=== PATIENT | male | born 1955 | race Caucasian/White ===

== ENCOUNTER → 2016-11-12 | Outpatient (CLI) | payer OTHER, MEDICARE ==
[~2016-11-12] MED LIST: CARI350T20 PO; HYDR7.5T66 PO; NEUR600T PO
--- NOTE | 2016-11-12 11:47 | REP ---
CERVICAL SPINE, EIGHT VIEWS: HISTORY: Spondylosis. COMPARISON: 07/18/2015. There is no acute fracture or subluxation. The C5-6 and C6-7 intervertebral discs are decreased in height consistent with disc degeneration. Osteophytes are present on C3 through C7. There is narrowing of the left C5 and C6 neural foramina secondary to uncinate process hypertrophy. IMPRESSION: Degenerative change as described above. Signed by Ulysses Del Toro MD 11/12/2016 11:53 A
--- NOTE | 2016-11-12 11:49 | REP ---
LUMBAR SPINE, SEVEN VIEWS: HISTORY: Spondylosis. There is no acute fracture. The L2-3 through L5-S1 intervertebral discs are decreased in height consistent with disc degeneration. Osteophytes are present on L3-5. There is narrowing of the L4-5 and L5-S1 facet joints with associated sclerosis. There are 3 mm of grade 1 spondylolisthesis of L4 on 5 with flexion . This is not seen in neural or extension radiographs. IMPRESSION: Degenerative change as described above. Signed by Ulysses Del Toro MD 11/12/2016 11:54 A
== END ==
LOC: M RAD 10:06
PROVIDERS: ATTEND Neurological Surgery
DX: M47.892 Other spondylosis, cervical region (principal); M50.90 Cervical disc disorder, unspecified, unspecified cervical region; M51.36 Other intervertebral disc degeneration, lumbar region; M51.37 Other intervertebral disc degeneration, lumbosacral region

== ENCOUNTER → 2016-12-03 | Outpatient (CLI) | payer OTHER, MEDICARE ==
--- NOTE | 2016-12-03 13:34 | REP ---
MRI CERVICAL SPINE WITHOUT CONTRAST: 12/03/2016. Comparison: 05/25/2014. Clinical history: Spondylosis with myelopathy cervical region. Technique: Sagittal T1, T2 and STIR images with axial T1 and T2 sequences provided through the cervical spine. Findings: Normal loss of some of the cervical lordosis is again seen unchanged. There is cervical spondylosis greatest at C5-6 and C6-7 with disc space narrowing and loss of disc water signal, less disc space narrowing at the C4-5 compared to the other levels with loss of disc water signal, mild at all of those levels. No compression deformity of destructive lesion in the cervical and upper thoracic spine. The cervical cord shows no intrinsic signal abnormality, syrinx, atrophy or mass. Craniocervical junction shows ample subarachnoid space and no cerebellar tonsillar ectopia. The C2-3 disc level shows no bulge herniation and no spinal or foraminal stenosis. At C3-C4, there is no significant disc bulge or herniation and no spinal stenosis. The foramina appear to have adequate perineural fat. At C4-5, there no significant disc bulge herniation and no spinal or foraminal stenosis. At C5-6, there is posterior osteophytic ridging and associated central and left paracentral disc protrusion. This abuts and flattens the ventral cord surface causing some central canal stenosis. The foramina show encroachment, left greater than right due to uncinate and facet spurs. At C6-7, there is also posterior osteophytic ridging and an associated disc bulge flattening ventral thecal sac but not causing as much spinal stenosis. The foramina show encroachment on the left and are adequate on the right. At C7-T1, no spinal stenosis despite a small central disc bulge. The foramina are ample. Upper thoracic levels show minimal disc bulges at T2-3 and T3-4 without cord compression. Impression: 1. Spondylosis greatest at C5-6 with central canal stenosis and cord compression to degree unchanged from the 2013 study. However, I do not see myelomalacia. There is foraminal encroachment on the left at this level and at C6-7 as well. Less central stenosis at C6-7 and minimal stenosis without significant disc bulge elsewhere. Signed by Son Gregg MD 12/03/2016 05:09 P
--- NOTE | 2016-12-03 14:15 | REP ---
MRI LUMBAR SPINE WITHOUT CONTRAST: 12/03/2016. Comparison: x-ray 11/12/2016, MR 05/25/2014, 02/27/2008. Clinical history: Back pain, spondylosis with radiculopathy lumbar region. Technique: Sagittal T1, T2 and STIR images with axial T1 and T2 sequences provided. Findings: The normal sagittal lordosis is maintained in the lumbar spine. Disc space narrowing at L5-S1 with loss of disc water signal. The L2-3 through L4-5 levels show slight loss of height and loss of water signal sparing the height and water signal at L1-2. There is disc space narrowing and loss of water signal at T11-12. No compression deformity or destructive lesion in the spine. Anterior osteophytes at T11-12 and L5-S1. Conus terminates in the mid body L1. T11-12, T12-L1 and L1-2 levels show no disc bulge or herniation and no spinal or foraminal stenosis. At L2-3 there is mild disc bulge flattening ventral thecal sac but not causing central canal stenosis. Foramina adequate. At L3-4 there is a broad-based disc bulge flattening ventral thecal sac and asymmetrically greater slightly towards the left but this does not abut or displace the L4 nerve roots in the central canal. Cross-sectional area adequate. Some mild ligamentum and facet hypertrophy. The foramina ample. At L4-5 there is a mild broad-based disc bulge without disc herniation or spinal stenosis. Left foramen shows adequate perineural fat without nerve root compression. The right foramen is marginal. At L5-S1 there is a broad-based disc bulge abutting the ventral thecal sac, but not causing spinal stenosis. Foramina are adequate. IMPRESSION: 1. Degenerative spondylosis from L2-3 through L5-S1 with small central canal changes with disc bulges but no extrusion or protrusion. Findings are stable. The disc narrowing is greatest at L5-S1 with loss of disc water signal at that level. Conus terminates midbody at L1. 2. No compression deformity or destructive lesions. Signed by Son Gregg MD 12/03/2016 05:09 P
== END ==
LOC: M RAD 09:38
PROVIDERS: ATTEND Neurological Surgery
DX: M47.26 Other spondylosis with radiculopathy, lumbar region (principal); M47.12 Other spondylosis with myelopathy, cervical region

== ENCOUNTER → 2016-12-20 | Outpatient (CLI) | payer OTHER ==
--- NOTE | 2017-01-01 01:51 | ECWPNPC ---
PATIENT NAME: CORINE PRABHAKAR : 1955 GENDER: MALE VISIT DATE: 12/20/2016 DISCHARGE DATE: 12/20/16 1310 VISIT LOCKED DATE TIME: PHYSICIAN: CIERA CHUA RESOURCE: CIERA CHUA REASON FOR APPOINTMENT 1. 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 SCREENING :NO FALLS IN THE PAST YEAR PAIN SCREENING: PATIENT HAS A COMPLAINT OF ACUTE OR CHRONIC PAIN :YES CURRENT MEDICATIONS TAKING SOMA 350 MG TABLET 1 TABLET NEEDED ORALLY TWICE DAILY TAKING VICOPROFEN 7.5-200 MG TABLET 1 TABLET NEEDED ORALLY EVERY 6 HRS TAKING IBUPROFEN 400 MG TABLET 1 TABLET ORALLY TWICE DAILY NEEDED TAKING VERAPAMIL HCL 40 MG TABLET 1 TABLET ORALLY DAILY MEDICATION LIST REVIEWED AND RECONCILED WITH THE PATIENT PAST MEDICAL HISTORY 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 SURGICAL HISTORY TONSILLECTOMY HEMORRHOIDS FAMILY HISTORY FATHER: ALIVE MOTHER: 1 SON(S) , 2 DAUGHTER(S) - HEALTHY. MOM HAD ALZHEIMER, 2 CHILDREN WITH THYROID ISSUES. SOCIAL HISTORY GENERAL: TOBACCO USE ARE YOU A: CURRENT SMOKER, SMOKES 1 PPD ADVANCED DIRECTIVES HEALTH CARE PROXY? NO ADVANCED DIRECTIVES HOSPITALIZATION/MAJOR DIAGNOSTIC PROCEDURE DENIES PAST HOSPITALIZATION REVIEW OF SYSTEMS CONSTITUTIONAL: RECENT ILLNESS DENIES . ANY CHANGE IN YOUR MEDICAL CONDITION? NO . CHILLS NO . FEVER NO, DENIES . WEIGHT LOSS DENIES . INFECTION: DO YOU HAVE NEW INFECTIONS? , NO . DO YOU HAVE HISTORY OF MRSA? NO . MUSCULOSKELETAL: ANY NEW PATTERNS OF PAIN OR NUMBNESS? NO . SYTEMIC LUPUS NO . JOINT PAIN DENIES . JOINT STIFFNESS DENIES . GASTROENTEROLOGY: BOWEL INCONTINENCE DENIES . ANY NEW CHANGE IN BOWEL CONTROL? NO . BARRETTS ESOPHAGUS NO . CIRRHOSIS NO . HEPATITIS NO . LIVER FAILURE NO . ACID REFLUX NO . BLOOD IN STOOL DENIES . UNEXPLAINED WEIGHT LOSS NO . GENITOURINARY: ANY NEW CHANGE IN BLADDER CONTROL? NO . IS THERE A CHANCE YOU COULD BE ? NO . HEMATOLOGY/LYMPH: DENIES . BLEEDING DISORDER DENIES . DO YOU TAKE ANY BLOOD THINNERS? (FOR EXAMPLE- COUMADIN, PLAVIX, AGGRENOX, PLATEL, PRADAXA, OR XARELTO) NO . WHEN WAS YOUR LAST DOSE? DATE: TIME: . LOW PLATELET COUNT NO . SICKLE CELL DISEASE NO . VON WILLIEBRANDS NO . FACTOR V LEIDEN NO . THALLASEMIA NO . ANEMIA NO . EASY BRUISING NO . NEUROLOGY: HAVE YOU FALLEN IN THE PAST 6 MONTHS? NO . ANY NEW EXTREMITY NUMBNESS OR WEAKNESS? NO . HEAD INJURY NO . DEMENTIA NO . CEREBRAL PALSY NO . MULTIPLE SCLEROSIS NO . DIZZINESS NO . HEADACHE NO, DENIES . SEIZURES DENIES . STROKES NO . VERTIGO NO . CARDIOLOGY: DO YOU HAVE A PACEMAKER OR DEFIBRILLATOR? NO . ANGINA NO . HEART ATTACK NO . HEART SURGERY NO . CONGESTIVE HEART FAILURE/FLUID OVERLOAD NO . CHEST PAIN NO, DENIES . HIGH BLOOD PRESSURE NO . IRREGULAR HEART BEAT NO . SHORTNESS OF BREATH DENIES . RESPIRATORY: HAVE YOU BEEN SICK IN THE PAST WEEK? NO . FEVER NO . FLU LIKE SYMPTOMS? NO . CPAP NO . BYPAP NO . ASTHMA NO . EMPHYSEMA NO . CHRONIC LUNG DISEASES NO . SHORTNESS OF BREATH ON EXERTION NO . COUGH NO, DENIES . SHORTNESS OF BREATH DENIES . SNORING NO . INTEGUMENTARY: DO YOU HAVE ANY RASHES OR OPEN SORES? NO . ALLERGIC/IMMUNO: ARE YOU ALLERGIC TO SHELLFISH OR IV DYE? NO . ANY NEW ALLERGIES? NO . PSYCHIATRIC: DO YOU HAVE THOUGHTS OF HURTING YOURSELF OR SOMEONE ELSE? NO . ARE YOU ABUSED, NEGLECTED, OR IN AN UNSAFE ENVIRONMENT? NO . ENDOCRINOLOGY: THYROID DISEASE DENIES . ARE YOU DIABETIC? NO . DIABETES DENIES . THYROID DISORDER NO . OTHER: DO YOU NEED ANY PRESCRIPTIONS? NO . IF YES, PLEASE LIST: ____ . ANY NEW PROBLEMS WITH YOUR MEDICATIONS? NO . WHEN DID YOU LAST EAT? ____ . WHEN DID YOU LAST DRINK? ____ . WHAT DID YOU LAST DRINK? ____ . NAME OF PERSON DRIVING YOU HOME? ____ . DO YOU HAVE ANY OTHER QUESTIONS OR CONCERNS NO . HEENT: CHANGE IN VISION DENIES . LOSS OF HEARING DENIES . TROUBLE SWALLOWING DENIES . PSYCHOLOGY: ANXIETY DENIES . DEPRESSION DENIES . UROLOGY: URINARY INCONTINENCE DENIES . BLOOD IN URINE DENIES . REVIEWED BY: PROVIDER: CIERA SEO . VITAL SIGNS WT 185.4 LBS, HT 68", BMI 28.19 INDEX, BP 149/97 MM HG, HR 73 /MIN, RR 16 /MIN, TEMP 98.9 F, OXYGEN SAT % 96%, NA INITIALS TL 1140. EXAMINATION GENERAL EXAMINATION: HEENT:HEAD:, NORMOCEPHALIC, EYES:, EYES NORMAL, NOSE:, NOSE CLEAR, THROAT: NORMAL. LUNGS:LUNG SOUNDS ARE CLEAR. HEART:HEART RATE REGULAR. ABDOMEN:SOFT AND NOT TENDER, NON-DISTENDED. MUSCULOSKELETAL:*. LUMBAR SACRAL SPINEMUSCLE STRENGTH TESTING 5/5 BLE.PALPATION: + FOR PAIN OVER L/S SPINE. + FOR PAIN OVER L/S PARASPINALS. THORACIC SPINENEGATIVE FOR PAIN WITH PALPATION OF THORACIC SPINE. NEGATIVE FOR PAIN WITH PALPATION OF THORACIC PARASPINAL. CERVICALNEGATIVE FOR PAIN WITH PALPATION OF CERVICAL SPINE. NEGATIVE FOR PAIN WITH PALPATION OF CERVICAL PARASPINALS. NEGATIVE FOR PAIN WITH PALPATION OF TRAPEZIUS BILAT. SKIN:NORMAL, NO RASH. NEUROLOGIC EXAM:ALERT AND ORIENTED X 3, DTRS 1-2+ IN ALL 4 EXTREMITIES, DENIES UPPER EXTREMETIES SENSORY LOSS, DENIES LOWER EXTREMETIES SENSORY LOSS. DIAGNOSTIC: . ASSESSMENTS ARTHROPATHY - M12.9 (PRIMARY) TREATMENT ARTHROPATHY CONTINUE SOMA TABLET, 350 MG, 1 TABLET NEEDED, ORALLY, TWICE DAILY CONTINUE VICOPROFEN TABLET, 7.5-200 MG, 1 TABLET NEEDED, ORALLY, EVERY 6 HRS OTHERS CLINICAL NOTES: ISTOP REGISTRY REVIEWED. PROCEDURE CODES FA211 ESTABILISHED PATIENT [facility] FACILITY CHARGE DISPOSITION & COMMUNICATION FOLLOW UP / DR. PHILLIPS AT NEXT AVAILABLE 30 MIN VISIT ELECTRONICALLY SIGNED BY RAYRAY PEREZ ON 12/31/2016 AT 05:49 PM EDT DISCLAIMER : THIS IS A VISIT SUMMARY EXTRACTED FROM THE [employer] CHART. IT IS NOT A COPY OF THE [employer] PROGRESS NOTE. MTDD
== END ==
LOC: M PAIN 11:20
PROVIDERS: ATTEND Nurse Practitioner Family
DX: M12.9 Arthropathy, unspecified (principal); M25.512 Pain in left shoulder; M54.2 Cervicalgia; M54.5 Low back pain; R51 Headache; G89.29 Other chronic pain; Z79.891 Long term (current) use of opiate analgesic; Z79.899 Other long term (current) drug therapy; F17.210 Nicotine dependence, cigarettes, uncomplicated

== ENCOUNTER → 2017-01-02 | Outpatient (CLI) | payer OTHER ==
--- NOTE | 2017-01-13 23:35 | ECWPNPC ---
PATIENT NAME: CORINE PRABHAKAR : 1955 GENDER: MALE VISIT DATE: 01/02/2017 DISCHARGE DATE: 01/02/17 1456 VISIT LOCKED DATE TIME: PHYSICIAN: QAMAR PHILLIPS RESOURCE: QAMAR PHILLIPS REASON FOR APPOINTMENT 1. NECK PAIN HISTORY OF PRESENT ILLNESS HISTORY OF PRESENT ILLNESS: PAIN THE PATIENT DESCRIBES THE PAIN... 61 YEAR OLD MALE PATIENT WITH HISTORY OF CHRONIC NECK PAIN. PATIENT DESCRIBES THE PAIN ACHING, SHARP, AND SHOOTING WITH A PAIN SCORE OF 6/10. 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 PATIENT IS CURRENTLY USING VICOPROFEN AND SOMA WHICH HE STATES KEEPS HIM MOBILE AND FUNCTIONAL. PATIENT IS DOING THING HE'S LEARNED FROM PHYSICAL THERAPY AT HOME WHICH HE SEES A HIGH BENEFIT IN PAIN RELIEF AND FUNCTIONALITY. PATIENT STATES THAT ANY TYPE OF ACTIVITY INCREASES THE PAIN IN HIS CERVICAL AREA AND MEDICATION AND REST AIDS IN PAIN RELIEF. PATIENT DENIES UNEXPLAINABLE WEIGHT LOSS, FEVER, CHILLS, NEW CHANGES ON HIS URINARY OR BOWEL CONTROL. FALL RISK SCREENING: SCREENING :NO FALLS IN THE PAST YEAR CURRENT MEDICATIONS TAKING IBUPROFEN 200 MG TABLET 1 TABLET ORALLY TWICE DAILY NEEDED TAKING VERAPAMIL HCL 40 MG TABLET 1 TABLET ORALLY DAILY TAKING SOMA 350 MG TABLET 1 TABLET NEEDED ORALLY TWICE DAILY TAKING VICOPROFEN 7.5-200 MG TABLET 1 TABLET NEEDED ORALLY EVERY 6 HRS MEDICATION LIST REVIEWED AND RECONCILED WITH THE PATIENT PAST MEDICAL HISTORY 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 SURGICAL HISTORY TONSILLECTOMY HEMORRHOIDS FAMILY HISTORY FATHER: ALIVE MOTHER: 1 SON(S) , 2 DAUGHTER(S) - HEALTHY. MOM HAD ALZHEIMER, 2 CHILDREN WITH THYROID ISSUES. SOCIAL HISTORY GENERAL: PAIN CLINIC PFS, CLERGY, PUBLIC HEALTH REFERRALS CLERGY REFERRAL NEEDED?NO WAS THE PROVIDER NOTIFIED OF ANY PERTINENT INFO?NO PFS REFERRAL NEEDED?NO PUBLIC HEALTH REFERRAL NEEDED?NO PATIENT: ____. HOSPITALIZATION/MAJOR DIAGNOSTIC PROCEDURE NO HOSPITALIZATION HISTORY. REVIEW OF SYSTEMS CONSTITUTIONAL: ANY CHANGE IN YOUR MEDICAL CONDITION? NO . CHILLS NO . FEVER NO . INFECTION: DO YOU HAVE NEW INFECTIONS? YES BOTH EYES . DO YOU HAVE HISTORY OF MRSA? NO . MUSCULOSKELETAL: ANY NEW PATTERNS OF PAIN OR NUMBNESS? NO . GASTROENTEROLOGY: ANY NEW CHANGE IN BOWEL CONTROL? NO . GENITOURINARY: ANY NEW CHANGE IN BLADDER CONTROL? NO . IS THERE A CHANCE YOU COULD BE ? NO . HEMATOLOGY/LYMPH: DO YOU TAKE ANY BLOOD THINNERS? (FOR EXAMPLE- COUMADIN, PLAVIX, AGGRENOX, PLATEL, PRADAXA, OR XARELTO) NO . WHEN WAS YOUR LAST DOSE? DATE: TIME: . NEUROLOGY: HAVE YOU FALLEN IN THE PAST 6 MONTHS? NO . ANY NEW EXTREMITY NUMBNESS OR WEAKNESS? NO . CARDIOLOGY: DO YOU HAVE A PACEMAKER OR DEFIBRILLATOR? NO . RESPIRATORY: HAVE YOU BEEN SICK IN THE PAST WEEK? NO . FEVER NO . FLU LIKE SYMPTOMS? NO . COUGH NON-PRODUCTIVE . INTEGUMENTARY: DO YOU HAVE ANY RASHES OR OPEN SORES? NO . ALLERGIC/IMMUNO: ARE YOU ALLERGIC TO SHELLFISH OR IV DYE? NO . ANY NEW ALLERGIES? NO . PSYCHIATRIC: DO YOU HAVE THOUGHTS OF HURTING YOURSELF OR SOMEONE ELSE? NO . ARE YOU ABUSED, NEGLECTED, OR IN AN UNSAFE ENVIRONMENT? NO . ENDOCRINOLOGY: ARE YOU DIABETIC? NO . OTHER: DO YOU NEED ANY PRESCRIPTIONS? NO . IF YES, PLEASE LIST: ____ . ANY NEW PROBLEMS WITH YOUR MEDICATIONS? NO . WHEN DID YOU LAST EAT? ____ . WHEN DID YOU LAST DRINK? ____ . WHAT DID YOU LAST DRINK? ____ . NAME OF PERSON DRIVING YOU HOME? ____ . DO YOU HAVE ANY OTHER QUESTIONS OR CONCERNS NO . REVIEWED BY: PROVIDER: QAMAR PHILLIPS MD . VITAL SIGNS WT 185.2 LBS, HT 68", BMI 28.16 INDEX, BP 144/83 MM HG, HR 58 /MIN, RR 16 /MIN, TEMP 98.7 F, OXYGEN SAT % 95, NA INITIALS AW 1332, REVIEWED BY: MLF. EXAMINATION : PATIENT IS ALERT O X 3 AND COOPERATIVE. TENDERNESS IN THE CERVICAL AREA AND PARASPINAL MUSCLE GROUP. PATIENT ABLE TO EXTEND NECK 10 DEGREES WITH DISCOMFORT AND LATERAL ROTATION TO THE RIGHT IN 15 DEGREES AND LEFT IS 45 DEGREES. 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 MRI DONE ON 12/03/16 SHOWS SPONDYLOSIS WITH CANAL STENOSIS WITH A DISC PROTRUSION AT C5-C6. ASSESSMENTS CERVICAL DISC DISORDER AT C5-C6 LEVEL WITH RADICULOPATHY - M50.122 (PRIMARY) SPONDYLOSIS WITHOUT MYELOPATHY OR RADICULOPATHY, CERVICAL REGION - M47.812 MYALGIA - M79.1 TREATMENT CERVICAL DISC DISORDER AT C5-C6 LEVEL WITH RADICULOPATHY NOTES: WE DISCUSSED SEVERAL ISSUES WITH MR. PRABHAKAR'S PAIN MANAGEMENT CASE. AT THIS TIME THE PATIENT WILL CONTINUE WITH THE SAME MEDICATION REGIME AT THIS TIME. PATIENT WILL START GABAPENTIN TO SEE IF IT WILL AID WITH THE NEUROPATHIC PAIN DOWN THE LEGS. PATIENT WILL CONTINUE THE SOMA FOR THE MUSCLE SPASMS, VICOPROFEN FOR THE SOMATIC PAIN, AND IBUPROFEN FOR THE INFLAMMATION. PATIENT DENIES ABUSE OF ANY MEDICATION, DENIES USE OF ILLEGAL SUBSTANCES, AND STATES THAT HE IS ONLY USING THE MEDICATIONS FOR PAIN MANAGEMENT. WE DISCUSSED SEVERAL INJECTIONS THAT MAY AID THE PATIENT BUT AT THIS TIME HE WOULD LIKE TO SEE HOW THE GABAPENTIN AIDS IN PAIN RELIEF. PATIENT WAS ADVISED TO BRING ALL MEDICATIONS TO EVERY VISIT. PATIENT WAS ADVISED THAT IF HE WILL NEED MORE MEDICATION AT THE NEXT VISIT HE WILL NEED TO SIGN A NARCOTIC AGREEMENT ALONG WITH PERFORMING A URINE SAMPLE. PATIENT WILL RETURN TO THE CLINIC IN 3 WEEKS. INSTRUCTIONS WERE GIVEN, QUESTIONS WERE ANSWERED, PATIENT REPORTS UNDERSTANDING AND AGREES WITH THE PLAN. I, JG TORRES, DOCUMENTED THE ABOVE INFORMATION ACTING A SCRIBE FOR DR. PHILLIPS. I HAVE REVIEWED THE ABOVE DOCUMENT, WRITTEN BY JG CARR AND I VERIFY THAT IT IS ACCURATE. OTHERS REFILL SOMA TABLET, 350 MG, 1 TABLET NEEDED, ORALLY, TWICE DAILY NEEDED FOR SPSMS AND PAIN, 30 DAY(S), 50, REFILLS 0 REFILL VICOPROFEN TABLET, 7.5-200 MG, 1 TABLET NEEDED, ORALLY, EVERY 6 HRS PRN FOR PAIN MDD2, 30 DAY(S), 50, REFILLS 0 REFILL IBUPROFEN TABLET, 200 MG, 1 TO 2 TABLET, ORALLY, TWICE DAILY NEEDED FOR PAIN MDD4, 30 DAY(S), 100, REFILLS 2 START GABAPENTIN CAPSULE, 300 MG, 1 CAPSULE, ORALLY, THREE TIMES A DAY, 30 DAY(S), 90, REFILLS 2 PROCEDURES PN WORKMANS' COMP OPINION IN YOUR OPINION, WAS THE INCIDENT THAT THE PATIENT DESCRIBED THE COMPETENT MEDICAL CAUSE OF THIS INJURY/ILLNESS? YES ARE THE PATIENT'S COMPLAINTS CONSISTENT WITH HIS/HER HISTORY OF THE INJURY/ILLNESS? YES IS THE PATIENT'S HISTORY OF THE INJURY/ILLNESS CONSISTENT WITH YOUR OBJECTIVE FINDING? YES WHAT IS THE PERCENTAGE OF TEMPORARY IMPAIRMENT? MODERATE TO MARKED = 66.7% IS THE PATIENT WORKING? NO DOCTOR ON SITE: QAMAR PEPE MD PROCEDURE CODES FA211 ESTABILISHED PATIENT [facility] CHARGE G8427 DOC MEDS VERIFIED W/PT OR RE G8730 PAIN ASSESS POS TOOL F/U PLAN DOC DISPOSITION & COMMUNICATION FOLLOW UP 3 WEEKS ELECTRONICALLY SIGNED BY QAMAR PHILLIPS MD ON 01/13/2017 AT 04:44 PM EDT DISCLAIMER : THIS IS A VISIT SUMMARY EXTRACTED FROM THE [employer] CHART. IT IS NOT A COPY OF THE [employer] PROGRESS NOTE. MTDD
== END ==
LOC: M PAIN 13:20
PROVIDERS: ATTEND Anesthesiology
DX: M54.2 Cervicalgia (principal); M47.812 Spondylosis without myelopathy or radiculopathy, cervical region; M79.1 Myalgia; G89.29 Other chronic pain; Z79.891 Long term (current) use of opiate analgesic; Z79.899 Other long term (current) drug therapy; E78.00 Pure hypercholesterolemia, unspecified; G60.3 Idiopathic progressive neuropathy

== ENCOUNTER → 2017-02-13 | Outpatient (CLI) | payer OTHER ==
--- NOTE | 2017-02-27 02:57 | ECWPNPC ---
PATIENT NAME: CORINE PRABHAKAR : 1955 GENDER: MALE VISIT DATE: 02/13/2017 DISCHARGE DATE: 02/13/17 1601 VISIT LOCKED DATE TIME: PHYSICIAN: QAMAR PHILLIPS RESOURCE: QAMAR PHILLIPS REASON FOR APPOINTMENT 1. MEDS HISTORY OF PRESENT ILLNESS GENERAL: 61 YEAR OLD MALE PATIENT WITH HISTORY OF CHRONIC NECK AND BACK PAIN. PATIENT DESCRIBES THE PAIN ACHING, SHARP, SORE, SHOOTING, AND HAVING IT ALL THE TIME WITH A PAIN SCORE OF 3/10 ON TODAY'S VISIT. PATIENT WAS HURT IN A WORK RELATED INJURY WHEN HE FELL OFF SCAFFOLDING ON 04/21/2002 WHILE WORKING FOR [employer]. PATIENT REPORTS THAT HE DOES SOME PHYSICAL THERAPY EXERCISES AT HOME, WHICH PROVIDES SOME PAIN RELIEF AND FUNCTIONALITY. PATIENT STATES THAT HE HAS NOT HAD ANY BACK SURGERIES. PATIENT REPORTS THAT HIS BACK HURTS THE MOST ON TODAY'S VISIT. PATIENT STATES THAT HE HAS RADIATING PAIN DOWN BOTH HIS LEGS THAT STOPS ABOVE HIS KNEE. PATIENT DENIES UNEXPLAINABLE WEIGHT LOSS, FEVER, CHILLS, NEW CHANGES ON HIS URINARY OR BOWEL CONTROL. HISTORY OF PRESENT ILLNESS: PAIN THE PATIENT DESCRIBES THE PAIN... FALL RISK SCREENING: SCREENING :NO FALLS IN THE PAST YEAR CURRENT MEDICATIONS TAKING VERAPAMIL HCL 40 MG TABLET 1 TABLET ORALLY DAILY TAKING SOMA 350 MG TABLET 1 TABLET NEEDED ORALLY TWICE DAILY NEEDED FOR SPSMS AND PAIN, NOTES: NEEDED TAKING VICOPROFEN 7.5-200 MG TABLET 1 TABLET NEEDED ORALLY EVERY 6 HRS PRN FOR PAIN MDD2 TAKING IBUPROFEN 200 MG TABLET 1 TO 2 TABLET ORALLY TWICE DAILY NEEDED FOR PAIN MDD4, NOTES: TAKES RARELY NEEDED NOT-TAKING GABAPENTIN 300 MG CAPSULE 1 CAPSULE ORALLY THREE TIMES A DAY, NOTES: COMP WOULD NOT AUTHORIZE MEDICATION LIST REVIEWED AND RECONCILED WITH THE PATIENT PAST MEDICAL HISTORY 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 SURGICAL HISTORY TONSILLECTOMY HEMORRHOIDS FAMILY HISTORY FATHER: ALIVE MOTHER: 1 SON(S) , 2 DAUGHTER(S) - HEALTHY. MOM HAD ALZHEIMER, 2 CHILDREN WITH THYROID ISSUES. SOCIAL HISTORY GENERAL: PAIN CLINIC PFS, CLERGY, PUBLIC HEALTH REFERRALS CLERGY REFERRAL NEEDED?NO WAS THE PROVIDER NOTIFIED OF ANY PERTINENT INFO?NO PFS REFERRAL NEEDED?NO PUBLIC HEALTH REFERRAL NEEDED?NO PATIENT: ____. HOSPITALIZATION/MAJOR DIAGNOSTIC PROCEDURE NO HOSPITALIZATION HISTORY. REVIEW OF SYSTEMS CONSTITUTIONAL: ANY CHANGE IN YOUR MEDICAL CONDITION? NO . CHILLS NO . FEVER NO . INFECTION: DO YOU HAVE NEW INFECTIONS? NO . DO YOU HAVE HISTORY OF MRSA? NO . MUSCULOSKELETAL: ANY NEW PATTERNS OF PAIN OR NUMBNESS? NO . GASTROENTEROLOGY: ANY NEW CHANGE IN BOWEL CONTROL? NO . GENITOURINARY: ANY NEW CHANGE IN BLADDER CONTROL? NO . IS THERE A CHANCE YOU COULD BE ? NO . HEMATOLOGY/LYMPH: DO YOU TAKE ANY BLOOD THINNERS? (FOR EXAMPLE- COUMADIN, PLAVIX, AGGRENOX, PLATEL, PRADAXA, OR XARELTO) NO . WHEN WAS YOUR LAST DOSE? DATE: TIME: . NEUROLOGY: HAVE YOU FALLEN IN THE PAST 6 MONTHS? NO . ANY NEW EXTREMITY NUMBNESS OR WEAKNESS? NO . CARDIOLOGY: DO YOU HAVE A PACEMAKER OR DEFIBRILLATOR? NO . RESPIRATORY: HAVE YOU BEEN SICK IN THE PAST WEEK? NO . FEVER NO . FLU LIKE SYMPTOMS? NO . COUGH NO . INTEGUMENTARY: DO YOU HAVE ANY RASHES OR OPEN SORES? NO . ALLERGIC/IMMUNO: ARE YOU ALLERGIC TO SHELLFISH OR IV DYE? NO . ANY NEW ALLERGIES? NO . PSYCHIATRIC: DO YOU HAVE THOUGHTS OF HURTING YOURSELF OR SOMEONE ELSE? NO . ARE YOU ABUSED, NEGLECTED, OR IN AN UNSAFE ENVIRONMENT? NO . ENDOCRINOLOGY: ARE YOU DIABETIC? NO . OTHER: DO YOU NEED ANY PRESCRIPTIONS? NO . IF YES, PLEASE LIST: ____ . ANY NEW PROBLEMS WITH YOUR MEDICATIONS? NO . WHEN DID YOU LAST EAT? ____ . WHEN DID YOU LAST DRINK? ____ . WHAT DID YOU LAST DRINK? ____ . NAME OF PERSON DRIVING YOU HOME? ____ . DO YOU HAVE ANY OTHER QUESTIONS OR CONCERNS NO . REVIEWED BY: PROVIDER: QAMAR PHILLIPS MD . VITAL SIGNS WT 180.0 LBS, HT 68", BMI 27.37 INDEX, BP 180/79 L ARM, REPEAT BP 170/91 R ARM, HR 62 /MIN, RR 16 /MIN, TEMP 98.3 F, OXYGEN SAT % 96%, NA INITIALS TL 1358. EXAMINATION GENERAL: PATIENT IS ALERT O X 3 AND COOPERATIVE. PATIENT IS ABLE TO EXTEND HIS NECK TO 10 DEGREES AND FLEX TO 50 DEGREES. ABDUCTION OF THE UPPER EXTREMITIES WITH SEVERE DIFFICULTIES. THERE IS TENDERNESS IN THE CERVICAL PARASPINAL MUSCLE GROUP WITH BANDS OF TISSUES, RESTRICTION OF MOVEMENT, AND PRESENCE OF TRIGGER POINTS. THERE IS TENDERNESS IN THE LOW BACK PARASPINAL MUSCLE GROUP. PATIENT'S RIGHT LEG IS WEAKER AT FLEXION AND EXTENSION COMPARED TO THE LEFT LEG. MRI OF THE CERVICAL SPINE DONE ON 12/03/2016 SHOWS SPONDYLOSIS AT C5-C6. MRI OF THE LUMBAR SPINE DONE ON 12/03/2016 SHOWS DISC BULGES AND SPONDYLOSIS AT MULTIPLE LEVELS. ASSESSMENTS SPONDYLOSIS WITHOUT MYELOPATHY OR RADICULOPATHY, LUMBAR REGION - M47.816 (PRIMARY) SPONDYLOSIS WITHOUT MYELOPATHY OR RADICULOPATHY, LUMBOSACRAL REGION - M47.817 TREATMENT SPONDYLOSIS WITHOUT MYELOPATHY OR RADICULOPATHY, LUMBAR REGION NOTES: WE DISCUSSED SEVERAL ISSUES WITH MR. PRABHAKAR'S PAIN MANAGEMENT CASE. AT THIS TIME PATIENT WILL RECEIVE SOMA, IBUPROFEN, GABAPENTIN, AND HYDROCODONE. PATIENT IS TAKING SOMA, HYDROCODONE, AND IBUPROFEN FOR SOMATIC PAIN. PATIENT WILL START GABAPENTIN AT NIGHT FOR A WEEK AND SLOWLY INCREASE EVERY WEEK, PATIENT IS TAKING THIS MEDICATION FOR NEUROPATHIC PAIN. PATIENT DID NOT BRING HIS MEDICATIONS ON TODAY'S VISIT AND WAS ADVISED TO DO SO FOR EVERY FOLLOW UP. AFTER EXAMINING THE PATIENT AND REVIEWING THE MRI OF THE LUMBAR SPINE THE PATIENT IS A GOOD CANDIDATE FOR A LUMBAR FACET BLOCK THERAPEUTIC. PATIENT STATES AT THIS TIME HE WOULD LIKE TO THINK IT OVER ABOUT GETTING THE PROCEDURE DONE. PATIENT WILL FOLLOW UP WITH ME IN 4 WEEKS. INSTRUCTIONS WERE GIVEN, QUESTIONS WERE ANSWERED, PATIENT REPORTS UNDERSTANDING AND AGREES WITH THE PLAN. I, MAURIZIO PERDOMO, DOCUMENTED THE ABOVE INFORMATION ACTING A SCRIBE FOR DR. PHILLIPS. I HAVE REVIEWED THE ABOVE DOCUMENT, WRITTEN BY MAURIZIO GREWALIBKala AND I VERIFY THAT IT IS ACCURATE. OTHERS REFILL SOMA TABLET, 350 MG, 1 TABLET NEEDED, ORALLY, TWICE DAILY NEEDED FOR SPSMS AND PAIN MDD2, 30 DAY(S), 50, REFILLS 0 REFILL IBUPROFEN TABLET, 800 MG, 1 TABLET, ORALLY, TWICE DAILY NEEDED FOR PAIN MDD2, 30 DAY(S), 50, REFILLS 2 REFILL GABAPENTIN CAPSULE, 100 MG, 1 CAPSULE, ORALLY, THREE TIMES A DAY FOR PAIN, 30 DAY(S), 90, REFILLS 2 START HYDROCODONE-ACETAMINOPHEN TABLET, 7.5-325 MG, 1 TABLET NEEDED, ORALLY, EVERY 6 HRS PRN FOR PAIN MDD2, 30 DAY(S), 55, REFILLS 0 NOTES: FACET JOINT INJECTION MATERIAL WAS PRINTED,FACET JOINT INJECTION: YOUR EXPERIENCE MATERIAL WAS PRINTED. PROCEDURES PN WORKMANS' COMP OPINION IN YOUR OPINION, WAS THE INCIDENT THAT THE PATIENT DESCRIBED THE COMPETENT MEDICAL CAUSE OF THIS INJURY/ILLNESS? YES ARE THE PATIENT'S COMPLAINTS CONSISTENT WITH HIS/HER HISTORY OF THE INJURY/ILLNESS? YES IS THE PATIENT'S HISTORY OF THE INJURY/ILLNESS CONSISTENT WITH YOUR OBJECTIVE FINDING? YES WHAT IS THE PERCENTAGE OF TEMPORARY IMPAIRMENT? MODERATE TO MARKED = 66.7% IS THE PATIENT WORKING? NO DOCTOR ON SITE: QAMAR PEPE MD PROCEDURE CODES FA211 ESTABILISHED PATIENT [facility] FACILITY CHARGE G8730 PAIN ASSESS POS TOOL F/U PLAN DOC G8427 DOC MEDS VERIFIED W/PT OR RE DISPOSITION & COMMUNICATION FOLLOW UP 4 WEEKS ELECTRONICALLY SIGNED BY QAMAR PHILLIPS MD ON 02/26/2017 AT 05:57 PM EDT DISCLAIMER : THIS IS A VISIT SUMMARY EXTRACTED FROM THE [employer] CHART. IT IS NOT A COPY OF THE [employer] PROGRESS NOTE. MTDD
== END ==
LOC: M PAIN 14:00
PROVIDERS: ATTEND Anesthesiology
DX: M47.816 Spondylosis without myelopathy or radiculopathy, lumbar region (principal); M47.817 Spondylosis without myelopathy or radiculopathy, lumbosacral region; Z79.891 Long term (current) use of opiate analgesic; Z79.899 Other long term (current) drug therapy

== ENCOUNTER → 2017-03-13 | Outpatient (CLI) | payer MEDICARE ==
[2017-03-13 13:05] LABS: BASO % 0.5 % (0.0-1.0); EOS # 0.6 K/mm3 (0.0-0.50); LARGE UNSTAINED CELL # 0.1 K/mm3 (0.0-0.4); LARGE UNSTAINED CELL % 1.7 % (0.0-4.0); LYMPH % 24.4 % (24.0-44.0); MEAN CORPUSCULAR HEMOGLOBIN 32.1 pg (27.0-33.0); MEAN CORPUSCULAR HGB CONC 33.8 g/dl (32.0-36.5); MONO # 0.4 K/mm3 (0.0-0.8); MONO % 4.9 % (0.0-5.0); NEUTROPHILS # 5.1 K/mm3 (1.8-7.7); NEUTROPHILS % 61.4 % (36.0-66.0); PLATELET COUNT, AUTOMATED 368 k/mm3 (150-450); RED CELL DISTRIBUTION WIDTH 12.9 % (11.5-14.5); WHITE BLOOD COUNT 8.3 K/mm3 (4.0-10.0)
[2017-03-13 13:39] LABS: ALBUMIN/GLOBULIN RATIO 1.29 (1.00-1.93); ALKALINE PHOSPHATASE 59 U/L (45-117); ALT/SGPT 36 U/L (12-78); ANION GAP 6 MEQ/L (8-16); AST/SGOT 27 U/L (15-37); BILIRUBIN,TOTAL 0.5 MG/DL (0.2-1.0); BLOOD UREA NITROGEN 20 MG/DL (7-18); CARBON DIOXIDE LEVEL 26 MEQ/L (21-32); CHLORIDE LEVEL 107 MEQ/L (98-107); CREATININE FOR GFR 1.21 MG/DL (0.70-1.30); GLOMERULAR FILTRATION RATE > 60.0 (>56); GLUCOSE, FASTING 78 MG/DL (70-105); POTASSIUM SERUM 4.3 MEQ/L (3.5-5.1); SODIUM LEVEL 139 MEQ/L (136-145); TOTAL PROTEIN 7.1 GM/DL (6.4-8.2)
[2017-03-13 14:12] LABS: ERYTHROCYTE SEDIMENTATION RATE 4 mm/hr (0-20)
== END ==
LOC: M WUC 10:07
PROVIDERS: ATTEND Internal Medicine Rheumatology
DX: L40.59 Other psoriatic arthropathy (principal); Z79.899 Other long term (current) drug therapy

== ENCOUNTER → 2017-04-04 | Outpatient (CLI) | payer OTHER ==
[~2017-04-04] MED LIST changes: +CARI350T PO; -CARI350T20 PO
--- NOTE | 2017-04-16 00:17 | ECWPNPC ---
PATIENT NAME: CORINE PRABHAKAR : 1955 GENDER: MALE VISIT DATE: 04/04/2017 DISCHARGE DATE: 04/04/17 1049 VISIT LOCKED DATE TIME: PHYSICIAN: QAMAR PHILLIPS RESOURCE: QAMAR PHILLIPS REASON FOR APPOINTMENT 1. W/C BACK NECK PAIN HISTORY OF PRESENT ILLNESS HISTORY OF PRESENT ILLNESS: PAIN THE PATIENT DESCRIBES THE PAIN... 61 YEAR OLD MALE PATIENT WITH HISTORY OF CHRONIC NECK AND BACK PAIN. PATIENT DESCRIBES THE PAIN ACHING, SHARP, SORE, SHOOTING, AND HAVING IT ALL THE TIME WITH A PAIN SCORE OF 3/10 ON TODAY'S VISIT. PATIENT WAS HURT IN A WORK RELATED INJURY WHEN HE FELL OFF SCAFFOLDING DUE TO BEING ATTACKED BY AN EMPLOYEE ON 04/21/2002 WHILE WORKING FOR [employer]. PATIENT REPORTS THAT HE DOES SOME PHYSICAL THERAPY EXERCISES AT HOME, WHICH PROVIDES SOME PAIN RELIEF AND FUNCTIONALITY. PATIENT STATES THAT HE HAS NOT HAD ANY BACK SURGERIES. PATIENT REPORTS THAT HIS BACK HURTS THE MOST ON TODAY'S VISIT. PATIENT STATES THAT HE HAS RADIATING PAIN DOWN BOTH HIS LEGS THAT STOPS ABOVE HIS KNEE. CURRENTLY THE PATIENT IS USING SOMA AND VICOPROFEN WHICH HE STATES KEEPS HIM MOBILE AND FUNCTIONAL. PATIENT DENIES UNEXPLAINABLE WEIGHT LOSS, FEVER, CHILLS, NEW CHANGES ON HIS URINARY OR BOWEL CONTROL. FALL RISK SCREENING: SCREENING :NO FALLS IN THE PAST YEAR CURRENT MEDICATIONS TAKING SOMA 350 MG TABLET 1 TABLET NEEDED ORALLY TWICE DAILY NEEDED FOR SPSMS AND PAIN MDD2 TAKING HYDROCODONE-ACETAMINOPHEN 7.5-325 MG TABLET 1 TABLET NEEDED ORALLY EVERY 6 HRS PRN FOR PAIN MDD2 TAKING VERAPAMIL HCL 40 MG TABLET 1 TABLET ORALLY DAILY NOT-TAKING IBUPROFEN 800 MG TABLET 1 TABLET ORALLY TWICE DAILY NEEDED FOR PAIN MDD2 NOT-TAKING GABAPENTIN 100 MG CAPSULE 1 CAPSULE ORALLY THREE TIMES A DAY FOR PAIN NOT-TAKING VICOPROFEN 7.5-200 MG TABLET 1 TABLET NEEDED ORALLY EVERY 6 HRS PRN FOR PAIN MDD2 MEDICATION LIST REVIEWED AND RECONCILED WITH THE PATIENT PAST MEDICAL HISTORY 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 SURGICAL HISTORY TONSILLECTOMY HEMORRHOIDS REVIEW OF SYSTEMS REVIEWED BY: PROVIDER: QAMAR PHILLIPS MD . CONSTITUTIONAL: ANY CHANGE IN YOUR MEDICAL CONDITION? NO . CHILLS NO . FEVER NO . INFECTION: DO YOU HAVE NEW INFECTIONS? NO . DO YOU HAVE HISTORY OF MRSA? NO . MUSCULOSKELETAL: ANY NEW PATTERNS OF PAIN OR NUMBNESS? YES, PT STATES HE HAS VOMITED FROM PAIN TO HEAD AND NECK. PT STATES PAIN IS 5/10 AT REST, BUT WITH ACTIVITY 10/10 WITH BLURRED VISION . GASTROENTEROLOGY: ANY NEW CHANGE IN BOWEL CONTROL? NO . GENITOURINARY: ANY NEW CHANGE IN BLADDER CONTROL? NO . IS THERE A CHANCE YOU COULD BE ? NO . HEMATOLOGY/LYMPH: DO YOU TAKE ANY BLOOD THINNERS? (FOR EXAMPLE- COUMADIN, PLAVIX, AGGRENOX, PLATEL, PRADAXA, OR XARELTO) NO . WHEN WAS YOUR LAST DOSE? DATE: TIME: . NEUROLOGY: HAVE YOU FALLEN IN THE PAST 6 MONTHS? NO . ANY NEW EXTREMITY NUMBNESS OR WEAKNESS? NO . CARDIOLOGY: DO YOU HAVE A PACEMAKER OR DEFIBRILLATOR? NO . RESPIRATORY: HAVE YOU BEEN SICK IN THE PAST WEEK? NO . FEVER NO . FLU LIKE SYMPTOMS? NO . COUGH NO . INTEGUMENTARY: DO YOU HAVE ANY RASHES OR OPEN SORES? YES, PSORIASIS . ALLERGIC/IMMUNO: ARE YOU ALLERGIC TO SHELLFISH OR IV DYE? NO . ANY NEW ALLERGIES? NO . PSYCHIATRIC: DO YOU HAVE THOUGHTS OF HURTING YOURSELF OR SOMEONE ELSE? NO . ARE YOU ABUSED, NEGLECTED, OR IN AN UNSAFE ENVIRONMENT? NO . ENDOCRINOLOGY: ARE YOU DIABETIC? NO . OTHER: DO YOU NEED ANY PRESCRIPTIONS? YES, VICOPROFEN & SOMA . IF YES, PLEASE LIST: ____ . ANY NEW PROBLEMS WITH YOUR MEDICATIONS? NO . WHEN DID YOU LAST EAT? ____ . WHEN DID YOU LAST DRINK? ____ . WHAT DID YOU LAST DRINK? ____ . NAME OF PERSON DRIVING YOU HOME? ____ . DO YOU HAVE ANY OTHER QUESTIONS OR CONCERNS NO . VITAL SIGNS WT 170 LBS, HT 68", BMI 25.85 INDEX, BP 153/95 MM HG, HR 77 /MIN, RR 16 /MIN, TEMP 98.1 F, OXYGEN SAT % 97%, SAFE IN ENV? (Y/N) Y, REVIEWED BY: EM. EXAMINATION : PATIENT IS ALERT O X 3 AND COOPERATIVE. PATIENT IS ABLE TO EXTEND HIS NECK TO 10 DEGREES AND FLEX TO 50 DEGREES. ABDUCTION OF THE UPPER EXTREMITIES WITH SEVERE DIFFICULTIES. THERE IS TENDERNESS IN THE CERVICAL PARASPINAL MUSCLE GROUP WITH BANDS OF TISSUES, RESTRICTION OF MOVEMENT, AND PRESENCE OF TRIGGER POINTS. THERE IS TENDERNESS IN THE LOW BACK PARASPINAL MUSCLE GROUP. PATIENT'S RIGHT LEG IS WEAKER AT FLEXION AND EXTENSION COMPARED TO THE LEFT LEG. MRI OF THE CERVICAL SPINE DONE ON 12/03/2016 SHOWS SPONDYLOSIS AT C5-C6. MRI OF THE LUMBAR SPINE DONE ON 12/03/2016 SHOWS DISC BULGES AND SPONDYLOSIS AT MULTIPLE LEVELS. 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 PRABHAKAR'S PAIN MANAGEMENT CASE. AT THIS TIME THE PATIENT WILL CONTINUE WITH THE SAME MEDICATION REGIME BEFORE. PATIENT IS CURRENTLY USING VICOPROFEN FOR THE SOMATIC PAIN AND SOMA FOR THE MUSCLE SPASMS. PATIENT BROUGHT MEDICATIONS TO TODAY'S VISIT IN THEIR ORIGINAL BOTTLES. WE DISCUSSED SEVERAL INTERVENTIONS THAT MAY AID THE PATIENT IS PAIN RELIEF. WE DISCUSSED MOVING FORWARD WITH A CERVICAL EPIDURAL DUE TO THE PAIN RADIATING DOWN THE PATIENTS ARMS. AT THIS TIME THE PATIENT WOULD NOT LIKE TO MOVE FORWARD WITH ANY INTERVENTIONS BUT HE WILL CONSIDER THEM. PATIENT WILL RETURN TO THE CLINIC IN 3 WEEKS. INSTRUCTIONS WERE GIVEN, QUESTIONS WERE ANSWERED, PATIENT REPORTS UNDERSTANDING AND AGREES WITH THE PLAN. I, JG TORRES, DOCUMENTED THE ABOVE INFORMATION ACTING A SCRIBE FOR DR. PHILLIPS. I HAVE REVIEWED THE ABOVE DOCUMENT, WRITTEN BY JG CARR AND I VERIFY THAT IT IS ACCURATE. OTHERS REFILL VICOPROFEN TABLET, 7.5-200 MG, 1 TABLET NEEDED, ORALLY, EVERY 6 HRS PRN FOR PAIN MDD2, 30 DAY(S), 60, REFILLS 0 REFILL SOMA TABLET, 350 MG, 1 TABLET NEEDED, ORALLY FOR SPSMS AND PAIN, TWICE DAILY NEEDED FOR SPSMS AND PAIN MDD2, 30 DAY(S), 60, REFILLS 0 NOTES: CERVICAL EPIDURAL INJECTION MATERIAL WAS PRINTED. PROCEDURES PN WORKMANS' COMP OPINION IN YOUR OPINION, WAS THE INCIDENT THAT THE PATIENT DESCRIBED THE COMPETENT MEDICAL CAUSE OF THIS INJURY/ILLNESS? YES ARE THE PATIENT'S COMPLAINTS CONSISTENT WITH HIS/HER HISTORY OF THE INJURY/ILLNESS? YES IS THE PATIENT'S HISTORY OF THE INJURY/ILLNESS CONSISTENT WITH YOUR OBJECTIVE FINDING? YES WHAT IS THE PERCENTAGE OF TEMPORARY IMPAIRMENT? MODERATE TO MARKED = 66.7% IS THE PATIENT WORKING? NO DOCTOR ON SITE: QAMAR PEPE MD PROCEDURE CODES FA211 ESTABILISHED PATIENT [facility] FACILITY CHARGE G8427 DOC MEDS VERIFIED W/PT OR RE G8730 PAIN ASSESS POS TOOL F/U PLAN DOC DISPOSITION & COMMUNICATION FOLLOW UP 3 WEEKS ELECTRONICALLY SIGNED BY QAMAR PHILLIPS MD ON 04/15/2017 AT 08:24 PM EDT DISCLAIMER : THIS IS A VISIT SUMMARY EXTRACTED FROM THE [employer] CHART. IT IS NOT A COPY OF THE [employer] PROGRESS NOTE. FARSHAD
== END ==
LOC: M PAIN 14:40
PROVIDERS: ATTEND Anesthesiology
DX: M50.122 Cervical disc disorder at C5-C6 level with radiculopathy (principal); M47.816 Spondylosis without myelopathy or radiculopathy, lumbar region; M47.817 Spondylosis without myelopathy or radiculopathy, lumbosacral region; M79.1 Myalgia; M47.812 Spondylosis without myelopathy or radiculopathy, cervical region; Z79.891 Long term (current) use of opiate analgesic; Z79.899 Other long term (current) drug therapy

== ENCOUNTER → 2017-04-26 | Outpatient (CLI) | payer OTHER ==
--- NOTE | 2017-05-14 01:17 | ECWPNPC ---
PATIENT NAME: CORINE PRABHAKAR : 1955 GENDER: MALE VISIT DATE: 04/26/2017 DISCHARGE DATE: 04/26/17 1548 VISIT LOCKED DATE TIME: PHYSICIAN: QAMAR PHILLIPS RESOURCE: QAMAR PHILLIPS REASON FOR APPOINTMENT 1. W/C NECK AND BACK PAIN HISTORY OF PRESENT ILLNESS HISTORY OF PRESENT ILLNESS: PAIN THE PATIENT DESCRIBES THE PAIN... 61 YEAR OLD MALE PATIENT WITH HISTORY OF CHRONIC NECK AND BACK PAIN. PATIENT DESCRIBES THE PAIN ACHING, SHARP, SORE, SHOOTING, AND HAVING IT ALL THE TIME WITH A PAIN SCORE OF 3-5/10 ON TODAY'S VISIT. PATIENT WAS HURT IN A WORK RELATED INJURY WHEN HE FELL OFF SCAFFOLDING DUE TO BEING ATTACKED BY AN EMPLOYEE ON 04/21/2002 WHILE WORKING FOR [employer]. PATIENT REPORTS THAT HE DOES SOME PHYSICAL THERAPY EXERCISES AT HOME, WHICH PROVIDES SOME PAIN RELIEF AND FUNCTIONALITY. PATIENT STATES THAT HE HAS NOT HAD ANY BACK SURGERIES. PATIENT REPORTS THAT HIS BACK HURTS THE MOST ON TODAY'S VISIT. PATIENT STATES THAT HE HAS RADIATING PAIN DOWN BOTH HIS LEGS THAT STOPS ABOVE HIS KNEE. CURRENTLY THE PATIENT IS USING SOMA AND VICOPROFEN WHICH HE STATES KEEPS HIM MOBILE AND FUNCTIONAL. PATIENT DENIES UNEXPLAINABLE WEIGHT LOSS, FEVER, CHILLS, NEW CHANGES ON HIS URINARY OR BOWEL CONTROL. FALL RISK SCREENING: SCREENING :NO FALLS IN THE PAST YEAR CURRENT MEDICATIONS TAKING VERAPAMIL HCL 40 MG TABLET 1 TABLET ORALLY DAILY TAKING VICOPROFEN 7.5-200 MG TABLET 1 TABLET NEEDED ORALLY EVERY 6 HRS PRN FOR PAIN MDD2 TAKING SOMA 350 MG TABLET 1 TABLET NEEDED ORALLY FOR SPSMS AND PAIN TWICE DAILY NEEDED FOR SPSMS AND PAIN MDD2 NOT-TAKING HYDROCODONE-ACETAMINOPHEN 7.5-325 MG TABLET 1 TABLET NEEDED ORALLY EVERY 6 HRS PRN FOR PAIN MDD2 NOT-TAKING IBUPROFEN 800 MG TABLET 1 TABLET ORALLY TWICE DAILY NEEDED FOR PAIN MDD2 NOT-TAKING GABAPENTIN 100 MG CAPSULE 1 CAPSULE ORALLY THREE TIMES A DAY FOR PAIN MEDICATION LIST REVIEWED AND RECONCILED WITH THE PATIENT PAST MEDICAL HISTORY 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 SURGICAL HISTORY TONSILLECTOMY HEMORRHOIDS REVIEW OF SYSTEMS REVIEWED BY: PROVIDER: QAMAR PHILLIPS MD . CONSTITUTIONAL: ANY CHANGE IN YOUR MEDICAL CONDITION? NO . CHILLS NO . FEVER NO . INFECTION: DO YOU HAVE NEW INFECTIONS? NO . DO YOU HAVE HISTORY OF MRSA? NO . MUSCULOSKELETAL: ANY NEW PATTERNS OF PAIN OR NUMBNESS? NO . GASTROENTEROLOGY: ANY NEW CHANGE IN BOWEL CONTROL? NO . GENITOURINARY: ANY NEW CHANGE IN BLADDER CONTROL? NO . IS THERE A CHANCE YOU COULD BE ? NO . HEMATOLOGY/LYMPH: DO YOU TAKE ANY BLOOD THINNERS? (FOR EXAMPLE- COUMADIN, PLAVIX, AGGRENOX, PLATEL, PRADAXA, OR XARELTO) NO . WHEN WAS YOUR LAST DOSE? DATE: TIME: . NEUROLOGY: HAVE YOU FALLEN IN THE PAST 6 MONTHS? NO . ANY NEW EXTREMITY NUMBNESS OR WEAKNESS? NO . CARDIOLOGY: DO YOU HAVE A PACEMAKER OR DEFIBRILLATOR? NO . RESPIRATORY: HAVE YOU BEEN SICK IN THE PAST WEEK? NO . FEVER NO . FLU LIKE SYMPTOMS? NO . COUGH NO . INTEGUMENTARY: DO YOU HAVE ANY RASHES OR OPEN SORES? YES, PSORIASIS . ALLERGIC/IMMUNO: ARE YOU ALLERGIC TO SHELLFISH OR IV DYE? NO . ANY NEW ALLERGIES? NO . PSYCHIATRIC: DO YOU HAVE THOUGHTS OF HURTING YOURSELF OR SOMEONE ELSE? NO . ARE YOU ABUSED, NEGLECTED, OR IN AN UNSAFE ENVIRONMENT? NO . ENDOCRINOLOGY: ARE YOU DIABETIC? NO . OTHER: DO YOU NEED ANY PRESCRIPTIONS? YES, VICAPROFINolan SOMA. PT C/O WORKMANS COMP REFUSING TO COVER RX'S.&NBSP;. IF YES, PLEASE LIST: &NBSP;&NBSP; ____&NBSP;. ANY NEW PROBLEMS WITH YOUR MEDICATIONS? &NBSP;&NBSP; NO&NBSP;. WHEN DID YOU LAST EAT? &NBSP;&NBSP; ____&NBSP;. WHEN DID YOU LAST DRINK? &NBSP;&NBSP; ____&NBSP;. WHAT DID YOU LAST DRINK? &NBSP;&NBSP; ____&NBSP;. NAME OF PERSON DRIVING YOU HOME? &NBSP;&NBSP; ____&NBSP;. DO YOU HAVE ANY OTHER QUESTIONS OR CONCERNS &NBSP;&NBSP; NO&NBSP;. VITAL SIGNS WT 174 LBS, HT 68", BMI 26.45 INDEX, BP 158/89 MM HG, HR 68 /MIN, RR 18 /MIN, TEMP 98.8 F, OXYGEN SAT % 99, REVIEWED BY: EM. EXAMINATION : PATIENT IS ALERT O X 3 AND COOPERATIVE. PATIENT IS ABLE TO EXTEND HIS NECK TO 10 DEGREES AND FLEX TO 50 DEGREES. ABDUCTION OF THE UPPER EXTREMITIES WITH SEVERE DIFFICULTIES. THERE IS TENDERNESS IN THE CERVICAL PARASPINAL MUSCLE GROUP WITH BANDS OF TISSUES, RESTRICTION OF MOVEMENT, AND PRESENCE OF TRIGGER POINTS. THERE IS TENDERNESS IN THE LOW BACK PARASPINAL MUSCLE GROUP. PATIENT'S RIGHT LEG IS WEAKER AT FLEXION AND EXTENSION COMPARED TO THE LEFT LEG. MRI OF THE CERVICAL SPINE DONE ON 12/03/2016 SHOWS SPONDYLOSIS AT C5-C6. MRI OF THE LUMBAR SPINE DONE ON 12/03/2016 SHOWS DISC BULGES AND SPONDYLOSIS AT MULTIPLE LEVELS. ASSESSMENTS MYALGIA - M79.1 (PRIMARY) SPONDYLOSIS WITHOUT MYELOPATHY OR RADICULOPATHY, CERVICAL REGION - M47.812 SPONDYLOSIS WITHOUT MYELOPATHY OR RADICULOPATHY, LUMBAR REGION - M47.816 SPONDYLOSIS WITHOUT MYELOPATHY OR RADICULOPATHY, LUMBOSACRAL REGION - M47.817 CERVICAL DISC DISORDER AT C5-C6 LEVEL WITH RADICULOPATHY - M50.122 TREATMENT MYALGIA NOTES: WE DISCUSSED SEVERAL ISSUES WITH MR. PRABHAKAR'S PAIN MANAGEMENT CASE. AT THIS TIME THE PATIENT WILL CONTINUE WITH THE SAME MEDICATION REGIME BEFORE. PATIENT IS CURRENTLY USING VICOPROFEN FOR THE SOMATIC PAIN AND SOMA FOR THE MUSCLE SPASMS. PATIENT WAS REMINDED TO BRING ALL MEDICATIONS IN THEIR ORIGINAL BOTTLES TO EVERY VISIT. PATIENT DENIES ABUSE OF ANY MEDICATION AND STATES HE IS ONLY USING THE MEDICATION FOR PAIN MANAGEMENT. PATIENT WILL PERFORM A URINE TOXICOLOGY TODAY. WE DISCUSSED SEVERAL INTERVENTIONS THAT MAY AID THE PATIENT IN PAIN RELIEF INCLUDING TRIGGER POINTS AND EPIDURAL'S. AT THIS TIME THE PATIENT DOES NOT WANT TO MOVE FORWARD WITH INJECTIONS AND WOULD LIKE TO CONTINUE WITH THE MEDICATION MANAGEMENT. PATIENT WILL RETURN TO THE CLINIC IN 2 MONTHS BUT WAS ADVISED TO CALL IF THE PATIENT SIGNIFICANTLY INCREASES. INSTRUCTIONS WERE GIVEN, QUESTIONS WERE ANSWERED, PATIENT REPORTS UNDERSTANDING AND AGREES WITH THE PLAN. I, JG TORRES, DOCUMENTED THE ABOVE INFORMATION ACTING A SCRIBE FOR DR. PHILLIPS. I HAVE REVIEWED THE ABOVE DOCUMENT, WRITTEN BY JG CARR AND I VERIFY THAT IT IS ACCURATE. OTHERS REFILL VICOPROFEN TABLET, 7.5-200 MG, 1 TABLET NEEDED, ORALLY, EVERY 6 HRS PRN FOR PAIN MDD2, 30 DAY(S), 60, REFILLS 0 REFILL SOMA TABLET, 350 MG, 1 TABLET NEEDED, ORALLY FOR SPSMS AND PAIN, TWICE DAILY NEEDED FOR SPSMS AND PAIN MDD2, 30 DAY(S), 60, REFILLS 0 PROCEDURES PN WORKMANS' COMP OPINION IN YOUR OPINION, WAS THE INCIDENT THAT THE PATIENT DESCRIBED THE COMPETENT MEDICAL CAUSE OF THIS INJURY/ILLNESS? YES ARE THE PATIENT'S COMPLAINTS CONSISTENT WITH HIS/HER HISTORY OF THE INJURY/ILLNESS? YES IS THE PATIENT'S HISTORY OF THE INJURY/ILLNESS CONSISTENT WITH YOUR OBJECTIVE FINDING? YES WHAT IS THE PERCENTAGE OF TEMPORARY IMPAIRMENT? MODERATE TO MARKED = 66.7% IS THE PATIENT WORKING? NO DOCTOR ON SITE: QAMAR PEPE MD PROCEDURE CODES FA211 ESTABILISHED PATIENT [facility] FACILITY CHARGE G8427 DOC MEDS VERIFIED W/PT OR RE G8730 PAIN ASSESS POS TOOL F/U PLAN DOC DISPOSITION & COMMUNICATION FOLLOW UP 3 WEEKS ELECTRONICALLY SIGNED BY QAMAR PHILLIPS MD ON 05/13/2017 AT 05:55 PM EDT DISCLAIMER : THIS IS A VISIT SUMMARY EXTRACTED FROM THE [employer] CHART. IT IS NOT A COPY OF THE [employer] PROGRESS NOTE. FARSHAD
== END ==
LOC: M PAIN 15:00
PROVIDERS: ATTEND Anesthesiology
DX: M79.1 Myalgia (principal); M47.812 Spondylosis without myelopathy or radiculopathy, cervical region; M47.816 Spondylosis without myelopathy or radiculopathy, lumbar region; M47.817 Spondylosis without myelopathy or radiculopathy, lumbosacral region; M50.122 Cervical disc disorder at C5-C6 level with radiculopathy; G89.29 Other chronic pain; M54.9 Dorsalgia, unspecified; Z79.891 Long term (current) use of opiate analgesic; Z79.899 Other long term (current) drug therapy

== ENCOUNTER → 2017-07-26 | Outpatient (CLI) | payer OTHER ==
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
== END | disposition home or self-care (01) ==
LOC: M PAIN 15:15
PROVIDERS: ATTEND Anesthesiology
DX: G89.29 Other chronic pain (principal); M79.1 Myalgia; M47.812 Spondylosis without myelopathy or radiculopathy, cervical region; M47.816 Spondylosis without myelopathy or radiculopathy, lumbar region; M47.817 Spondylosis without myelopathy or radiculopathy, lumbosacral region; G56.00 Carpal tunnel syndrome, unspecified upper limb; E78.00 Pure hypercholesterolemia, unspecified; G62.9 Polyneuropathy, unspecified; A69.20 Lyme disease, unspecified

== ENCOUNTER → 2017-11-15 | Outpatient (CLI) | payer MEDICARE ==
[2017-11-15 12:53] LABS: HEMOGLOBIN 16.6 g/dl (14.0-18.0); MEAN CORPUSCULAR HEMOGLOBIN 31.1 pg (27.0-33.0); MEAN CORPUSCULAR HGB CONC 33.9 g/dl (32.0-36.5); MEAN CORPUSCULAR VOLUME 91.9 fl (80.0-96.0); PLATELET COUNT, AUTOMATED 355 10^3/uL (150-450); RED BLOOD COUNT 5.33 10^6/uL (4.30-6.10); RED CELL DISTRIBUTION WIDTH 13.6 % (11.5-14.5); WHITE BLOOD COUNT 8.2 10^3/uL (4.0-10.0)
[2017-11-15 13:08] LABS: TESTOSTERONE 555 NG/DL (241-827); TOTAL T3 98.3 NG/DL (60.0-181.0)
[2017-11-15 13:10] LABS: ALBUMIN 4.2 GM/DL (3.2-5.2); ALBUMIN/GLOBULIN RATIO 1.27 (1.00-1.93); ALKALINE PHOSPHATASE 58 U/L (45-117); ALT/SGPT 39 U/L (12-78); ANION GAP 8 MEQ/L (8-16); AST/SGOT 31 U/L (7-37); BILIRUBIN,TOTAL 0.4 MG/DL (0.2-1.0); BLOOD UREA NITROGEN 21 MG/DL (7-18); CALCIUM LEVEL 9.1 MG/DL (8.5-10.1); CARBON DIOXIDE LEVEL 26 MEQ/L (21-32); CHLORIDE LEVEL 107 MEQ/L (98-107); CHOLESTEROL LEVEL 263 MG/DL (<200); CHOLESTEROL RISK RATIO 6.414 (<5); CREATININE FOR GFR 1.17 MG/DL (0.70-1.30); GLOMERULAR FILTRATION RATE > 60.0 (>56); GLUCOSE, FASTING 91 MG/DL (70-100); HDL CHOLESTEROL 41 MG/DL (>40); LDL CHOLESTEROL 193.6 MG/DL (<100); NON-HDL-C 222 MG/DL; POTASSIUM SERUM 4.6 MEQ/L (3.5-5.1); PROSTATIC SPECIFIC AG MONITOR 1.93 NG/ML (< 4.0); RHEUMATOID FACTOR QUANT < 10.0 IU/ML (0-15.0); SODIUM LEVEL 141 MEQ/L (136-145); THYROXINE (T4) 8.6 UG/DL (4.5-12.0); TOTAL PROTEIN 7.5 GM/DL (6.4-8.2); TRIGLYCERIDES LEVEL 142 MG/DL (<150)
[2017-11-15 14:30] LABS: ERYTHROCYTE SEDIMENTATION RATE 3 mm/hr (0-20)
[2017-11-17 00:06] LABS: ANTINUCLEAR ANTIBODIES DIRECT Negative (Negative); Lyme Disease IgG/IgM Antibodie <0.91 ISR (0.00-0.90); Lyme Disease IgM Ab Quantitati <0.80 index (0.00-0.79)
== END ==
LOC: M LAB 11:55
DX: D64.9 Anemia, unspecified (principal); R53.83 Other fatigue; E03.9 Hypothyroidism, unspecified
CPT/HCPCS: 84403

== ENCOUNTER → 2017-11-25 | Outpatient (CLI) | payer MEDICARE ==
[~2017-11-25] MED LIST changes: -CARI350T PO; +GASTROGRAFIN SOLUTION 30ML (Q9963) As Ordered; -HYDR7.5T66 PO; +ISOVUE-370 76% 100ML VIAL (Q9967) As Ordered; -NEUR600T PO
== END ==
LOC: M RAD 11:36
DX: K86.1 Other chronic pancreatitis (principal); K28.1 Acute gastrojejunal ulcer with perforation; R93.8 Abnormal findings on diagnostic imaging of other specified body structures; R10.32 Left lower quadrant pain
CPT/HCPCS: Q9963

== ENCOUNTER → 2017-11-28 | Outpatient (CLI) | payer OTHER | LOC: M PAIN 14:15 | DX: M79.1 Myalgia (principal); M47.812 Spondylosis without myelopathy or radiculopathy, cervical region; M47.816 Spondylosis without myelopathy or radiculopathy, lumbar region; F17.210 Nicotine dependence, cigarettes, uncomplicated; Z79.891 Long term (current) use of opiate analgesic; Z79.899 Other long term (current) drug therapy | CPT/HCPCS: G0463 ==

== ENCOUNTER → 2018-02-05 | Outpatient (REF) | payer OTHER ==
[2018-02-06 11:11] LABS: BASO # 0.1 10^3/uL (0.0-0.2); BASO % 0.8 % (0.0-1.0); EOS # 0.6 10^3/uL (0.0-0.50); EOS % 6.3 % (0.0-3.0); HEMATOCRIT 47.2 % (42.0-52.0); HEMOGLOBIN 16.1 g/dl (13.5-17.5); IMMATURE GRANULOCYTE % 0.2 % (0-3.0); LYMPH % 30.9 % (24.0-44.0); MEAN CORPUSCULAR HEMOGLOBIN 31.6 pg (27.0-33.0); MEAN CORPUSCULAR HGB CONC 34.1 g/dl (32.0-36.5); MEAN CORPUSCULAR VOLUME 92.7 fl (80.0-96.0); MONO # 0.6 10^3/uL (0.0-0.8); NEUTROPHILS # 5.4 10^3/uL (1.8-7.7); NEUTROPHILS % 55.8 % (36.0-66.0); PLATELET COUNT, AUTOMATED 372 10^3/uL (150-450); RED BLOOD COUNT 5.09 10^6/uL (4.30-6.10); RED CELL DISTRIBUTION WIDTH 13.2 % (11.5-14.5); WHITE BLOOD COUNT 9.7 10^3/uL (4.0-10.0)
[2018-02-06 11:26] LABS: ANION GAP 4 MEQ/L (8-16); BLOOD UREA NITROGEN 23 MG/DL (7-18); CALCIUM LEVEL 9.3 MG/DL (8.8-10.2); CARBON DIOXIDE LEVEL 30 MEQ/L (21-32); CHLORIDE LEVEL 108 MEQ/L (98-107); CREATININE FOR GFR 1.23 MG/DL (0.70-1.30); GLOMERULAR FILTRATION RATE > 60.0 (>49); GLUCOSE, FASTING 95 MG/DL (70-100); POTASSIUM SERUM 4.8 MEQ/L (3.5-5.1); SODIUM LEVEL 142 MEQ/L (136-145)
== END ==
LOC: M SFHCCLAY 15:13
DX: R03.0 Elevated blood-pressure reading, without diagnosis of hypertension (principal); B94.8 Sequelae of other specified infectious and parasitic diseases
CPT/HCPCS: 80048

== ENCOUNTER → 2018-05-09 | Outpatient (CLI) | payer OTHER | LOC: M PAIN 15:30 | DX: M50.122 Cervical disc disorder at C5-C6 level with radiculopathy (principal); M47.812 Spondylosis without myelopathy or radiculopathy, cervical region; F17.210 Nicotine dependence, cigarettes, uncomplicated; Z79.891 Long term (current) use of opiate analgesic | CPT/HCPCS: G0463 ==

== ENCOUNTER → 2018-06-05 | Outpatient (CLI) | payer MEDICARE, OTHER | LOC: M CLY 10:12 | DX: M25.552 Pain in left hip (principal) | CPT/HCPCS: 73502 ==

== ENCOUNTER → 2018-06-05 | Outpatient (REF) | payer MEDICARE, OTHER ==
[2018-06-05 17:41] LABS: ALT/SGPT 36 U/L (12-78); CHOLESTEROL LEVEL 307 MG/DL (<200); CHOLESTEROL RISK RATIO 6.531 (<5); HDL CHOLESTEROL 47 MG/DL (>40); LDL CHOLESTEROL 233 MG/DL (<100); NON-HDL-C 260 MG/DL; TRIGLYCERIDES LEVEL 134 MG/DL (<150)
== END ==
LOC: M SFHCCLAY 10:02
DX: I10 Essential (primary) hypertension (principal); E78.00 Pure hypercholesterolemia, unspecified
CPT/HCPCS: 84460

== ENCOUNTER → 2018-07-30 | Outpatient (CLI) | payer OTHER | LOC: M PAIN 15:30 | DX: Z53.29 Procedure and treatment not carried out because of patient's decision for other reasons (principal) ==

== ENCOUNTER → 2018-10-02 | Outpatient (CLI) | payer OTHER ==
[~2018-10-02] MED LIST changes: +CARI1TAB7 PO; -GASTROGRAFIN SOLUTION 30ML (Q9963) As Ordered; +HYDR7.5T66 PO; -ISOVUE-370 76% 100ML VIAL (Q9967) As Ordered; +NEUR600T PO
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
== END ==
LOC: M PAIN 13:30
PROVIDERS: ATTEND Anesthesiology
DX: M79.18 Myalgia, other site (principal); M15.0 Primary generalized (osteo)arthritis; M47.816 Spondylosis without myelopathy or radiculopathy, lumbar region; E78.00 Pure hypercholesterolemia, unspecified; F17.210 Nicotine dependence, cigarettes, uncomplicated; Z79.891 Long term (current) use of opiate analgesic; Z79.899 Other long term (current) drug therapy; Z86.19 Personal history of other infectious and parasitic diseases

== ENCOUNTER → 2018-10-30 | Outpatient (CLI) | payer MEDICARE ==
[2018-10-30 18:34] LABS: BLOOD UREA NITROGEN 23 MG/DL (7-18); CALCIUM LEVEL 8.8 MG/DL (8.8-10.2); CARBON DIOXIDE LEVEL 28 MEQ/L (21-32); CHLORIDE LEVEL 106 MEQ/L (98-107); CHOLESTEROL LEVEL 254 MG/DL (<200); CHOLESTEROL RISK RATIO 5.772 (<5); CREATININE FOR GFR 1.21 MG/DL (0.70-1.30); GLOMERULAR FILTRATION RATE > 60.0 (>49); GLUCOSE, FASTING 81 MG/DL (70-100); HDL CHOLESTEROL 44 MG/DL (>40); LDL CHOLESTEROL 154 MG/DL (<100); NON-HDL-C 210 MG/DL; POTASSIUM SERUM 4.4 MEQ/L (3.5-5.1); SODIUM LEVEL 139 MEQ/L (136-145); TRIGLYCERIDES LEVEL 282 MG/DL (<150)
== END ==
LOC: M LAB 16:33
PROVIDERS: ATTEND Family Medicine
DX: I10 Essential (primary) hypertension (principal); E78.00 Pure hypercholesterolemia, unspecified

== ENCOUNTER → 2018-11-25 | Outpatient (CLI) | payer MEDICARE | LOC: M PAIN 12:45 | PROVIDERS: ATTEND Anesthesiology | DX: M79.18 Myalgia, other site (principal); Z53.29 Procedure and treatment not carried out because of patient's decision for other reasons ==

== ENCOUNTER → 2018-12-04 | Outpatient (CLI) | payer OTHER, MEDICARE ==
[~2018-12-04] MED LIST changes: +BUPIVACAINE HCL 0.25% 10 ML VIAL As Ordered ONE; +BUPIVACAINE HCL 0.25% 30 ML VIAL As Ordered ONE; +TRIAMCINOLONE ACETONIDE SUSP 40 MG/ML VIAL (J3301) As Ordered ONE
--- NOTE | 2018-12-16 23:58 | ECWPNPC ---
PATIENT NAME: CORINE PRABHAKAR : 1955 GENDER: MALE VISIT DATE: 12/04/2018 DISCHARGE DATE: 12/04/18 1158 VISIT LOCKED DATE TIME: PHYSICIAN: QAMAR PHILLIPS MD PHYSICIAN PAGER NO: [phone] RESOURCE: QAMAR PHILLIPS MD REASON FOR APPOINTMENT 1. WC TPI LOW BACK HISTORY OF PRESENT ILLNESS HISTORY OF PRESENT ILLNESS: PAIN THE PATIENT DESCRIBES THE PAIN... FALL RISK SCREENING: SCREENING : NO FALLS IN THE PAST YEAR. 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 SURGICAL HISTORY TONSILLECTOMY HEMORRHOIDS ACHILES TENDON REPAIR [facility] ( ) FAMILY HISTORY FATHER: ALIVE MOTHER: 1 SON(S) , 2 DAUGHTER(S) - HEALTHY. MOM HAD ALZHEIMER, 2 CHILDREN WITH THYROID ISSUES. SOCIAL HISTORY GENERAL: TOBACCO USE ARE YOU A:CURRENT SMOKER ARE YOU INTERESTED IN QUITTING?NOT READY TO QUIT COUNSELED THE PATIENT ON SMOKING EFFECTS, EDUCATION [id number]/14/2019 HOW MANY CIGARETTES A DAY DO YOU SMOKE?11-20 HOW SOON AFTER YOU WAKE UP DO YOU SMOKE YOUR FIRST CIGARETTE?WITHIN 5 MIN HOW OFTEN DO YOU SMOKE CIGARETTES?EVERY DAY PATIENT COUNSELED ON THE DANGERS OF TOBACCO USE AND URGED TO QUIT:07/23/2018 ADDITIONAL FINDINGS: TOBACCO USERMODERATE CIGARETTE SMOKER (10-19 CIGS/DAY) SMOKING CESSATION INFORMATION GIVEN10/02/2018 NO CLASSES AVAILABLE DID GIVE PHONE NUMBER VAPORNO E-CIGARETTENO BMI CARE GOAL FOLLOW-UP ABOVE NORMAL BMI FOLLOW-UPDIETARY MANAGEMENT EDUCATION, GUIDANCE, AND COUNSELING ALCOHOL SCREENING DID YOU HAVE A DRINK CONTAINING ALCOHOL IN THE PAST YEAR?NO POINTS0 INTERPRETATIONNEGATIVE RECREATIONAL DRUG USE DRUG USE?NO CAFFEINE CAFFEINE USE?YES HOW OFTEN AND HOW MUCH? DAILY USE SEXUAL HX HAD SEX IN THE LAST 12 MONTHS (VAGINAL, ORAL, OR ANAL)?NO HAVE YOU EVER HAD AN STD?NO HIV / HEP-C SCREENING HIV TEST OFFERED TO PATIENT:YES DATE OFFERED:10/24/2018 TEST ACCEPTED:NO REASON:PATIENT DECLINED BROCHURE PROVIDED TO PATIENTNO DECLINES HEP-C TEST OFFERED TO PATIENT:YES DATE OFFERED:10/24/2018 TEST ACCEPTED:NO REASON:PATIENT DECLINED PROTESTANT [id number] NONE LANGUAGE LANGUAGES SPOKEN:ALBANIAN EDUCATION LEVEL OF EDUCATION:HIGH SCHOOL LEARNING BARRIERS / SPECIAL NEEDS CHANGE FROM LAST VISIT?NO 10/24/2018 BARRIERS TO LEARNING?NO HEARING IMPAIRED?NO VISION IMPAIRED?NO COGNITIVELY IMPAIRED?YES : S/P CONCUSION READINESS TO LEARN?YES LEARNING PREFERENCES?NO LEARNING CAPABILITIES PRESENT?YES EMOTIONAL BARRIERS?NO SPECIAL DEVICES?NO MILLINERY DEPARTMENT MANAGER NEEDED?NO DOMESTIC VIOLENCE DO YOU FEEL SAFE IN YOUR ENVIRONMENT?YES OCCUPATION: DISABLED . DIET: REGULAR. EXERCISE: WALKS. MARITAL STATUS: .. OTHERS AT HOME: NONE. PAIN CLINIC PFS, CLERGY, PUBLIC HEALTH REFERRALS PFS REFERRAL NEEDED?NO CLERGY REFERRAL NEEDED?NO PUBLIC HEALTH REFERRAL NEEDED?NO WAS THE PROVIDER NOTIFIED OF ANY PERTINENT INFO?NO HAS THE PATIENT BEEN EDUCATED REGARDING HIS/HER PLAN OF CARE?YES HAS THE PATIENT BEEN EDUCATED REGARDING PAIN, THE RISK FOR PAIN, THE IMPORTANCE OF EFFECTIVE PAIN MANAGEMENT, AND THE PAIN ASSESSMENT PROCESS?YES ADVANCE DIRECTIVE ADVANCE DIRECTIVE DISCUSSED WITH PATIENT:YES DECLINED REVIEWED WITH PT, 05/09/18 RASTA. HOSPITALIZATION/MAJOR DIAGNOSTIC PROCEDURE DENIES PAST HOSPITALIZATION REVIEW OF SYSTEMS REVIEWED BY: PROVIDER: . CONSTITUTIONAL: ANY CHANGE IN YOUR MEDICAL CONDITION? NO . CHILLS NO . FEVER NO . INFECTION: DO YOU HAVE NEW INFECTIONS? NO, HAD THE FLU, RESOLVED . DO YOU HAVE HISTORY OF MRSA? NO . MUSCULOSKELETAL: ANY NEW PATTERNS OF PAIN OR NUMBNESS? NO . GASTROENTEROLOGY: ANY NEW CHANGE IN BOWEL CONTROL? NO . GENITOURINARY: ANY NEW CHANGE IN BLADDER CONTROL? NO . IS THERE A CHANCE YOU COULD BE ? NO . HEMATOLOGY/LYMPH: DO YOU TAKE ANY BLOOD THINNERS? (FOR EXAMPLE- COUMADIN, PLAVIX, AGGRENOX, PLATEL, PRADAXA, OR XARELTO) NO . WHEN WAS YOUR LAST DOSE? DATE: TIME: . NEUROLOGY: HAVE YOU FALLEN IN THE PAST 12 MONTHS? NO . ANY NEW EXTREMITY NUMBNESS OR WEAKNESS? NO . CARDIOLOGY: DO YOU HAVE A PACEMAKER OR DEFIBRILLATOR? NO . RESPIRATORY: HAVE YOU BEEN SICK IN THE PAST WEEK? YES, URI RESOLVED . FEVER NO . FLU LIKE SYMPTOMS? NO . COUGH NO . INTEGUMENTARY: DO YOU HAVE ANY RASHES OR OPEN SORES? NO . ALLERGIC/IMMUNO: ARE YOU ALLERGIC TO IV DYE? NO . ANY NEW ALLERGIES? NO . PSYCHIATRIC: DO YOU HAVE THOUGHTS OF HURTING YOURSELF OR SOMEONE ELSE? NO . ARE YOU ABUSED, NEGLECTED, OR IN AN UNSAFE ENVIRONMENT? NO . ENDOCRINOLOGY: ARE YOU DIABETIC? NO . OTHER: DO YOU NEED ANY PRESCRIPTIONS? NO . IF YES, PLEASE LIST: ____ . ANY NEW PROBLEMS WITH YOUR MEDICATIONS? NO . WHEN DID YOU LAST EAT? 12/03/18 PM . WHEN DID YOU LAST DRINK? 12/04/18 0830 . WHAT DID YOU LAST DRINK? COFFEE, WATER . NAME OF PERSON DRIVING YOU HOME? WALKING . DO YOU HAVE ANY OTHER QUESTIONS OR CONCERNS NO . VITAL SIGNS WT 175.8 LBS, HT 5'7 1/2", BMI 27.12 INDEX, BP 151/83 MM HG, HR 71 /MIN, RR 18 /MIN, TEMP 96.4 F, OXYGEN SAT % 98%, NA INITIALS SC 10:41, REVIEWED BY: [place]. ASSESSMENTS MYALGIA, OTHER SITE - M79.18 (PRIMARY) PROCEDURES PN WORKMANS' COMP OPINION IN YOUR OPINION, WAS THE INCIDENT THAT THE PATIENT DESCRIBED THE COMPETENT MEDICAL CAUSE OF THIS INJURY/ILLNESS? YES ARE THE PATIENT'S COMPLAINTS CONSISTENT WITH HIS/HER HISTORY OF THE INJURY/ILLNESS? YES IS THE PATIENT'S HISTORY OF THE INJURY/ILLNESS CONSISTENT WITH YOUR OBJECTIVE FINDING? YES WHAT IS THE PERCENTAGE OF TEMPORARY IMPAIRMENT? MODERATE TO MARKED = 66.7% IS THE PATIENT WORKING? NO DOCTOR ON SITE: QAMAR PEPE MD PN TRIGGER POINT INJECTION WITH STEROIDS PRE PROCEDURE DIAGNOSIS 1. MYALGIA 2. PAIN AT BILATERAL LOW BACK AREA POST PROCEDURE DIAGNOSIS 1. MYALGIA 2. PAIN AT BILATERAL LOW BACK AREA PROCEDURE TRIGGER POINT INJECTION AT BILATERAL LOW BACK AREA SURGEON DR. QAMAR PHILLIPS FLOORWORKER DISTRIBUTOR NONE ANESTHESIA LOCAL PRE PROCEDURE NOTE THE PATIENT HAS A HISTORY OF CHRONIC PAIN AT THE RIGHT AND LEFT LOW BACK AREA. I EVALUATE THE PATIENT AND REVIEWED THE CHART. THERE IS EVIDENCE OF BANDS OF TISSUE WITH RESTRICTION OF MOVEMENT AND PRESENCE OF TRIGGER POINT AT THE AFFECTED AREA. I WENT OVER THE RISKS, ALTERNATIVES, AND BENEFITS ASSOCIATED WITH THIS PROCEDURE. THE PATIENT WOULD LIKE TO PROCEED AND GIVE CONSENT TO PERFORMED THE PROCEDURE. THE PATIENT DENIES UNEXPLAINABLE WEIGHT LOSS, FEVER, CHILLS, OR NEW CHANGES IN URINARY OR BOWEL CONTROL DESCRIPTION OF PROCEDURE THE PATIENT WAS BROUGHT TO THE PROCEDURE ROOM AND PLACED IN THE SITTING POSITION. THE AREA WAS CLEANED WITH ALCOHOL. THE PROCEDURE WAS DONE USING ASEPTIC STERILE TECHNIQUE. I CHECKED LATERALITY AND THE LEVEL WHERE THE PROCEDURE WAS GOING TO BE PERFORMED WITH THE PATIENT AND THE SUPPORTING STAFF AT THE MOMENT OF THE TIME OUT IN THE PROCEDURE ROOM. USING A 25-GAUGE NEEDLE, TRIGGER POINTS WERE INJECTED AT THE RIGHT AND LEFT LOW BACK AREA WITH A TOTAL OF 40 ML OF BUPIVACAINE 0.25% AND KENALOG 40 MG. THERE WAS NO EVIDENCE OF BLOOD, PARESTHESIA OR CEREBROSPINAL FLUID DURING THE PROCEDURE. THE PATIENT WAS SENT TO THE RECOVERY ROOM. THE PATIENT WAS MOVING THE EXTREMITIES AND DOING WELL. THERE WAS NO COMPLICATION DURING THE PROCEDURE POST PROCEDURE NOTE THE PATIENT WILL BE SEEN IN A FOLLOW UP IN THE NEXT FEW WEEKS. INSTRUCTIONS WERE GIVEN, QUESTIONS WERE ANSWERED, AND THE PATIENT EXPRESSED UNDERSTANDING AND AGREES WITH THE PLAN. I, ERUM JOHNSON, DOCUMENTED THE ABOVE INFORMATION ACTING A SCRIBE FOR DR. PHILLIPS. I HAVE REVIEWED THE ABOVE DOCUMENT, WRITTEN BY ERUM CARR AND I VERIFY THAT IT IS ACCURATE. PROCEDURE CODES 72680 INJ TRIGGER POINT / MUSC DISPOSITION & COMMUNICATION FOLLOW UP 3 WEEKS ELECTRONICALLY SIGNED BY QAMAR PHILLIPS MD, MD ON 12/16/2018 AT 11:25 AM EDT DISCLAIMER : THIS IS A VISIT SUMMARY EXTRACTED FROM THE [facility] CHART. IT IS NOT A COPY OF THE [facility] PROGRESS NOTE. FARSHAD
== END ==
LOC: M PAIN 10:30
PROVIDERS: ATTEND Anesthesiology
DX: M79.18 Myalgia, other site (principal); M47.892 Other spondylosis, cervical region; M47.896 Other spondylosis, lumbar region; E78.00 Pure hypercholesterolemia, unspecified; G60.9 Hereditary and idiopathic neuropathy, unspecified; G56.20 Lesion of ulnar nerve, unspecified upper limb; G89.4 Chronic pain syndrome; F17.210 Nicotine dependence, cigarettes, uncomplicated; Z79.899 Other long term (current) drug therapy
CPT/HCPCS: 20552; J3301

== ENCOUNTER → 2018-12-10 | Outpatient (CLI) | payer OTHER, MEDICARE ==
[~2018-12-10] MED LIST changes: -BUPIVACAINE HCL 0.25% 10 ML VIAL As Ordered ONE; -BUPIVACAINE HCL 0.25% 30 ML VIAL As Ordered ONE; -TRIAMCINOLONE ACETONIDE SUSP 40 MG/ML VIAL (J3301) As Ordered ONE
--- NOTE | 2018-12-22 00:08 | ECWPNPC ---
PATIENT NAME: CORINE PRABHAKAR : 1955 GENDER: MALE VISIT DATE: 12/10/2018 DISCHARGE DATE: 12/10/18 1625 VISIT LOCKED DATE TIME: PHYSICIAN: QAMAR PHILLIPS MD PHYSICIAN PAGER NO: [phone] RESOURCE: QAMAR PHILLIPS MD REASON FOR APPOINTMENT 1. W/C PER DR Xiong HISTORY OF PRESENT ILLNESS HISTORY OF PRESENT ILLNESS: PAIN THE PATIENT DESCRIBES THE PAIN... 62 YEAR OLD MALE PATIENT WITH A HISTORY OF CHRONIC LOW BACK AND NECK PAIN. THE PATIENT DESCRIBES THE PAIN ACHING, STABBING, SHOOTING, AND CONTINUOUS WITH A PAIN SCORE OF 4-7/10 DEPENDING ON PHYSICAL ACTIVITY. THE PATIENT WAS HURT IN A WORK RELATED INJURY ON 04/21/2002 WHILE WORKING FOR [employer] WHEN HE FELL OFF SCAFFOLDING AFTER BEING ATTACKED BY AN EMPLOYEE. THE PATIENT WAS HERE FOR A TRIGGER POINT INJECTION ON 12/04/2018 AND REPORTS HAVING SOME PAIN RELIEF. THE PATIENT IS CURRENTLY USING HYDROCODONE-IBUPROFEN AND SOMA TO AID IN PAIN RELIEF. THE PATIENT SAYS THAT THE USE OF THESE MEDICATIONS HELP HIM REMAIN MOBILE AND FUNCTIONAL. PATIENT DENIES UNEXPLAINABLE WEIGHT LOSS, FEVER, CHILLS, NEW CHANGES ON HIS URINARY OR BOWEL CONTROL. FALL RISK SCREENING: SCREENING : NO FALLS IN THE PAST YEAR. 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 SURGICAL HISTORY TONSILLECTOMY HEMORRHOIDS ACHILES TENDON REPAIR [facility]CO[facility] ( ) FAMILY HISTORY FATHER: ALIVE MOTHER: 1 SON(S) , 2 DAUGHTER(S) - HEALTHY. MOM HAD ALZHEIMER, 2 CHILDREN WITH THYROID ISSUES. SOCIAL HISTORY GENERAL: TOBACCO USE ARE YOU A:CURRENT SMOKER BEEN CUTTING DOWN TO 5 OR 6 A DAY ARE YOU INTERESTED IN QUITTING?READY TO QUIT HOW MANY CIGARETTES A DAY DO YOU SMOKE?11-20 HOW SOON AFTER YOU WAKE UP DO YOU SMOKE YOUR FIRST CIGARETTE?WITHIN 5 MIN HOW OFTEN DO YOU SMOKE CIGARETTES?EVERY DAY PATIENT COUNSELED ON THE DANGERS OF TOBACCO USE AND URGED TO QUIT:07/23/2018 ADDITIONAL FINDINGS: TOBACCO USERMODERATE CIGARETTE SMOKER (10-19 CIGS/DAY) SMOKING CESSATION INFORMATION GIVEN10/02/2018 NO CLASSES AVAILABLE DID GIVE PHONE NUMBER MERLIN E-CIGARETTENO BMI CARE GOAL FOLLOW-UP ABOVE NORMAL BMI FOLLOW-UPDIETARY MANAGEMENT EDUCATION, GUIDANCE, AND COUNSELING ALCOHOL SCREENING DID YOU HAVE A DRINK CONTAINING ALCOHOL IN THE PAST YEAR?NO POINTS0 INTERPRETATIONNEGATIVE RECREATIONAL DRUG USE DRUG USE?NO CAFFEINE CAFFEINE USE?YES HOW OFTEN AND HOW MUCH? DAILY USE SEXUAL HX HAD SEX IN THE LAST 12 MONTHS (VAGINAL, ORAL, OR ANAL)?NO HAVE YOU EVER HAD AN STD?NO HIV / HEP-C SCREENING HIV TEST OFFERED TO PATIENT:YES DATE OFFERED:10/24/2018 TEST ACCEPTED:NO HEP-C TEST OFFERED TO PATIENT:YES DATE OFFERED:10/24/2018 REASON:PATIENT DECLINED TEST ACCEPTED:NO REASON:PATIENT DECLINED BROCHURE PROVIDED TO PATIENTNO DECLINES SCIENTOLOGY [id number] NONE LANGUAGE LANGUAGES SPOKEN:OCCITAN EDUCATION LEVEL OF EDUCATION:HIGH SCHOOL LEARNING BARRIERS / SPECIAL NEEDS CHANGE FROM LAST VISIT?NO 10/24/2018 BARRIERS TO LEARNING?NO HEARING IMPAIRED?NO VISION IMPAIRED?NO COGNITIVELY IMPAIRED?YES : S/P CONCUSION READINESS TO LEARN?YES LEARNING PREFERENCES?NO LEARNING CAPABILITIES PRESENT?YES EMOTIONAL BARRIERS?NO SPECIAL DEVICES?NO LOCK PLATER NEEDED?NO DOMESTIC VIOLENCE DO YOU FEEL SAFE IN YOUR ENVIRONMENT?YES OCCUPATION: DISABLED . DIET: REGULAR. EXERCISE: WALKS. MARITAL STATUS: .. OTHERS AT HOME: NONE. PAIN CLINIC PFS, CLERGY, PUBLIC HEALTH REFERRALS PFS REFERRAL NEEDED?NO CLERGY REFERRAL NEEDED?NO PUBLIC HEALTH REFERRAL NEEDED?NO WAS THE PROVIDER NOTIFIED OF ANY PERTINENT INFO?NO HAS THE PATIENT BEEN EDUCATED REGARDING HIS/HER PLAN OF CARE?YES HAS THE PATIENT BEEN EDUCATED REGARDING PAIN, THE RISK FOR PAIN, THE IMPORTANCE OF EFFECTIVE PAIN MANAGEMENT, AND THE PAIN ASSESSMENT PROCESS?YES ADVANCE DIRECTIVE ADVANCE DIRECTIVE DISCUSSED WITH PATIENT:YES DECLINED REVIEWED WITH PT, 05/09/18 LAS. HOSPITALIZATION/MAJOR DIAGNOSTIC PROCEDURE NO HOSPITALIZATION HISTORY. REVIEW OF SYSTEMS REVIEWED BY: PROVIDER: QAMAR PHILLIPS MD . CONSTITUTIONAL: ANY CHANGE IN YOUR MEDICAL CONDITION? NO . CHILLS NO . FEVER NO . INFECTION: DO YOU HAVE NEW INFECTIONS? NO . DO YOU HAVE HISTORY OF MRSA? NO . MUSCULOSKELETAL: ANY NEW PATTERNS OF PAIN OR NUMBNESS? YES INCCREASE PAIN DOWN RIGHT ARM AND LEG PAIN HAS DECREASED SINCE INJECTION . GASTROENTEROLOGY: ANY NEW CHANGE IN BOWEL CONTROL? NO . GENITOURINARY: ANY NEW CHANGE IN BLADDER CONTROL? NO . IS THERE A CHANCE YOU COULD BE ? NO . HEMATOLOGY/LYMPH: DO YOU TAKE ANY BLOOD THINNERS? (FOR EXAMPLE- COUMADIN, PLAVIX, AGGRENOX, PLATEL, PRADAXA, OR XARELTO) NO . WHEN WAS YOUR LAST DOSE? DATE: TIME: . NEUROLOGY: HAVE YOU FALLEN IN THE PAST 12 MONTHS? NO . ANY NEW EXTREMITY NUMBNESS OR WEAKNESS? NO . CARDIOLOGY: DO YOU HAVE A PACEMAKER OR DEFIBRILLATOR? NO . RESPIRATORY: HAVE YOU BEEN SICK IN THE PAST WEEK? NO . FEVER NO . FLU LIKE SYMPTOMS? NO . COUGH NO . INTEGUMENTARY: DO YOU HAVE ANY RASHES OR OPEN SORES? NO . ALLERGIC/IMMUNO: ARE YOU ALLERGIC TO IV DYE? NO . ANY NEW ALLERGIES? NO . PSYCHIATRIC: DO YOU HAVE THOUGHTS OF HURTING YOURSELF OR SOMEONE ELSE? NO . ARE YOU ABUSED, NEGLECTED, OR IN AN UNSAFE ENVIRONMENT? NO . ENDOCRINOLOGY: ARE YOU DIABETIC? NO . OTHER: DO YOU NEED ANY PRESCRIPTIONS? NO . IF YES, PLEASE LIST: ____ . ANY NEW PROBLEMS WITH YOUR MEDICATIONS? NO . WHEN DID YOU LAST EAT? ____ . WHEN DID YOU LAST DRINK? ____ . WHAT DID YOU LAST DRINK? ____ . NAME OF PERSON DRIVING YOU HOME? ____ . DO YOU HAVE ANY OTHER QUESTIONS OR CONCERNS NO . VITAL SIGNS WT 175.8 LBS, HT 5'7 1/2", BMI 27.12 INDEX, BP 107/55 MM HG, HR 71 /MIN, RR 18 /MIN, TEMP 98.1 F, OXYGEN SAT % 97%, NA INITIALS SC 15:09. EXAMINATION GENERAL EXAMINATION: PATIENT IS ALERT O X 3 AND COOPERATIVE. TENDERNESS IN THE NECK AND LOW BACK AREAS. MRI OF THE LUMBAR SPINE DONE ON 12/03/2016 SHOWS FACET ARTHROPATHY CHANGES AT MULTIPLE LEVELS. ASSESSMENTS MYALGIA, OTHER SITE - M79.18 (PRIMARY) SPONDYLOSIS OF LUMBAR REGION WITHOUT MYELOPATHY OR RADICULOPATHY - M47.816 TREATMENT MYALGIA, OTHER SITE CLINICAL NOTES: WE DISCUSSED SEVERAL ISSUES WITH MR. PRABHAKAR'S PAIN MANAGEMENT CASE. I WILL SWITCH THE PATIENT FROM HYDROCODONE-IBUPROFEN TO HYDROCODONE-ACETAMINOPHEN FOR THE SOMATIC PAIN. I WILL REDUCE THE SOMA TO 45 TABLETS PER MONTH FOR SPASMS AND PAIN. I WOULD LIKE THE PATIENT TO START USING CYMBALTA FOR THE NEUROPATHIC PAIN. ISTOP _#[id number] WAS REVIEWED. I WILL PERFORM A URINE TOXICOLOGY TODAY. THE PATIENT WAS REMINDED TO BRING HIS MEDICATIONS TO HIS APPOINTMENTS IN THE ORIGINAL BOTTLES. THE PATIENT WILL FOLLOW UP IN 1 MONTH. INSTRUCTIONS WERE GIVEN, QUESTIONS WERE ANSWERED, PATIENT REPORTS UNDERSTANDING AND AGREES WITH THE PLAN. I, ERUM JOHNSON, DOCUMENTED THE ABOVE INFORMATION ACTING A SCRIBE FOR DR. PHILLIPS. I HAVE REVIEWED THE ABOVE DOCUMENT, WRITTEN BY ERUM GREWALIBKala AND I VERIFY THAT IT IS ACCURATE. . OTHERS START HYDROCODONE-ACETAMINOPHEN TABLET, 7.5-325 MG, 1 TABLET NEEDED, ORALLY FOR PAIN, EVERY 12 HRS MDD2, 30 DAY(S), 60, REFILLS 0 REFILL SOMA TABLET, 350 MG, 1 TABLET NEEDED, ORALLY FOR SPSMS AND PAIN, EVERY 12 HOURS NEEDED MDD2, 30 DAY(S), 45, REFILLS 0 START CYMBALTA CAPSULE DELAYED RELEASE PARTICLES, 30 MG, 1 CAPSULE, ORALLY FOR PAIN, ONCE A DAY, 30 DAY(S), 30, REFILLS 0 PROCEDURES PN WORKMANS' COMP OPINION IN YOUR OPINION, WAS THE INCIDENT THAT THE PATIENT DESCRIBED THE COMPETENT MEDICAL CAUSE OF THIS INJURY/ILLNESS? YES ARE THE PATIENT'S COMPLAINTS CONSISTENT WITH HIS/HER HISTORY OF THE INJURY/ILLNESS? YES IS THE PATIENT'S HISTORY OF THE INJURY/ILLNESS CONSISTENT WITH YOUR OBJECTIVE FINDING? YES WHAT IS THE PERCENTAGE OF TEMPORARY IMPAIRMENT? MODERATE TO MARKED = 66.7% IS THE PATIENT WORKING? NO DOCTOR ON SITE: QAMAR PEPE MD PREVENTIVE MEDICINE PAIN CLINIC TEACHING: MEDICATIONS CYMBALTA HANDOUT PRINTED, REVIEWED AND GIVEN TO PT. EM. PROCEDURE CODES [id number] ESTABILISHED [facility]IENT [facility] [id number] CURRENT MEDS W/DOSAGES DOCUMENTED G8730 PAIN ASSESS POS TOOL F/U PLAN DOC DISPOSITION & COMMUNICATION FOLLOW UP 4 WEEKS ELECTRONICALLY SIGNED BY QAMAR PHILLIPS MD, MD ON 12/21/2018 AT 08:12 PM EDT DISCLAIMER : THIS IS A VISIT SUMMARY EXTRACTED FROM THE [employer] CHART. IT IS NOT A COPY OF THE [employer] PROGRESS NOTE. FARSHDA
== END ==
LOC: M PAIN 14:45
PROVIDERS: ATTEND Anesthesiology
DX: M79.18 Myalgia, other site (principal); M47.816 Spondylosis without myelopathy or radiculopathy, lumbar region; E78.00 Pure hypercholesterolemia, unspecified; F17.210 Nicotine dependence, cigarettes, uncomplicated; Z79.899 Other long term (current) drug therapy; Z86.19 Personal history of other infectious and parasitic diseases

== ENCOUNTER → 2019-01-12 | Outpatient (CLI) | payer OTHER, MEDICARE ==
--- NOTE | 2019-01-27 02:19 | ECWPNPC ---
PATIENT NAME: CORINE PRABHAKAR : 1955 GENDER: MALE VISIT DATE: 01/12/2019 DISCHARGE DATE: 01/12/19 1640 VISIT LOCKED DATE TIME: PHYSICIAN: QAMAR PHILLIPS MD PHYSICIAN PAGER NO: [phone] RESOURCE: QAMAR PHILLIPS MD DISCLAIMER : THIS IS A VISIT SUMMARY EXTRACTED FROM THE [facility] CHART. IT IS NOT A COPY OF THE [employer] PROGRESS NOTE. MTDMaddie
== END ==
LOC: M PAIN 14:45
PROVIDERS: ATTEND Anesthesiology
DX: M47.816 Spondylosis without myelopathy or radiculopathy, lumbar region (principal); M47.817 Spondylosis without myelopathy or radiculopathy, lumbosacral region; G89.29 Other chronic pain; E78.00 Pure hypercholesterolemia, unspecified; F17.210 Nicotine dependence, cigarettes, uncomplicated; Z79.899 Other long term (current) drug therapy; Z86.19 Personal history of other infectious and parasitic diseases

== ENCOUNTER → 2019-01-30 | Outpatient (CLI) | payer MEDICARE ==
[2019-01-30 11:00] LABS: CHOLESTEROL RISK RATIO 4.045 (<5)
== END ==
LOC: M LAB 09:50
PROVIDERS: ATTEND Family Medicine
DX: E78.00 Pure hypercholesterolemia, unspecified (principal)

== ENCOUNTER → 2019-05-20 | Outpatient (CLI) | payer OTHER, MEDICARE ==
--- NOTE | 2019-05-29 02:23 | ECWPNPC ---
PATIENT NAME: CORINE PRABHAKAR : 1955 GENDER: MALE VISIT DATE: 05/20/2019 DISCHARGE DATE: 05/20/19 0000 VISIT LOCKED DATE TIME: PHYSICIAN: QAMAR PHILLIPS MD PHYSICIAN PAGER NO: [phone] RESOURCE: QAMAR PHILLIPS MD REASON FOR APPOINTMENT 1. W/C - ADDRESS LETTER FROM April HISTORY OF PRESENT ILLNESS HISTORY OF PRESENT ILLNESS: PAIN THE PATIENT DESCRIBES THE PAIN... 63 YEAR OLD MALE PATIENT WITH A HISTORY OF CHRONIC LOW BACK AND NECK PAIN. THE PATIENT DESCRIBES THE PAIN ACHING, SHARP, SORE, SHOOTING, AND CONTINUOUS WITH A PAIN SCORE OF 3-9/10 DEPENDING ON PHYSICAL ACTIVITY. THE PATIENT WAS HURT IN A WORK RELATED INJURY ON 04/21/2002 WHILE WORKING FOR [employer]_ WHEN HE WAS ATTACKED BY AN EMPLOYEE, WHICH RESULTED IN HIM FALLING OFF A SCAFFOLDING. THE PATIENT SAYS HE IS EXPERIENCING PAIN IN HIS LOW BACK WITH PAIN RADIATING DOWN BOTH LEGS AND PAIN IN HIS NECK WITH PAIN TRAVELING DOWN BOTH ARMS, ESPECIALLY IN THE LEFT ARM. THE PATIENT SAYS HE IS USING SOMA 350 MG UP TO 1 TABLET DAILY AND HYDROCODONE-ACETAMINOPHEN 7.5-325 MG NEEDED TO AID IN PAIN RELIEF. THE PATIENT SAYS HE IS TRYING TO STRETCH THE MEDICATION MUCH POSSIBLE. PATIENT DENIES UNEXPLAINABLE WEIGHT LOSS, FEVER, CHILLS, NEW CHANGES ON HIS URINARY OR BOWEL CONTROL. FALL RISK SCREENING: SCREENING :NO FALLS REPORTED IN THE LAST YEAR CURRENT MEDICATIONS TAKING SOMA 350 MG TABLET 1 TABLET NEEDED ORALLY FOR SPSMS AND PAIN EVERY 12 HOURS NEEDED MDD2, NOTES: TAKING ONLY ONE/DAY TAKING HYDROCODONE-ACETAMINOPHEN 7.5-325 MG TABLET 1 TABLET NEEDED ORALLY FOR PAIN EVERY 12 HRS MDD2 NOT-TAKING LOSARTAN POTASSIUM 50 MG TABLET 1 TABLET ORALLY ONCE A DAY NOT-TAKING ATORVASTATIN CALCIUM 10 MG TABLET 1 TABLET ORALLY ONCE A DAY NOT-TAKING CYMBALTA 30 MG CAPSULE DELAYED RELEASE PARTICLES 1 CAPSULE ORALLY FOR PAIN ONCE A DAY NOT-TAKING HYDROCODONE-IBUPROFEN 7.5-200 MG TABLET 1 TABLET NEEDED ORALLY FOR PAIN BID MDD2 NOT-TAKING IBUPROFEN 800 MG TABLET 1 TABLET WITH FOOD ORALLY DAILY NEEDED MDD1 MEDICATION LIST REVIEWED AND RECONCILED WITH THE PATIENT PAST MEDICAL HISTORY 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 SURGICAL HISTORY TONSILLECTOMY HEMORRHOIDS ACHILES TENDON REPAIR [facility] ( ) FAMILY HISTORY FATHER: ALIVE MOTHER: 1 SON(S) , 2 DAUGHTER(S) - HEALTHY. MOM HAD ALZHEIMER, 2 CHILDREN WITH THYROID ISSUES. SOCIAL HISTORY GENERAL: TOBACCO USE ARE YOU A:CURRENT SMOKER BEEN CUTTING DOWN TO 5 OR 6 A DAY ARE YOU INTERESTED IN QUITTING?READY TO QUIT COUNSELED THE PATIENT ON TOBACCO USE, CESSATION INORMJIU55/28/2019 HOW MANY CIGARETTES A DAY DO YOU SMOKE?11-20 HOW SOON AFTER YOU WAKE UP DO YOU SMOKE YOUR FIRST CIGARETTE?WITHIN 5 MIN HOW OFTEN DO YOU SMOKE CIGARETTES?EVERY DAY PATIENT COUNSELED ON THE DANGERS OF TOBACCO USE AND URGED TO QUIT:07/23/2018 ADDITIONAL FINDINGS: TOBACCO USERMODERATE CIGARETTE SMOKER (10-19 CIGS/DAY) SMOKING CESSATION INFORMATION GIVEN10/02/2018 NO CLASSES AVAILABLE DID GIVE PHONE NUMBER VAPORNO E-CIGARETTENO HIV / HEP-C SCREENING HIV TEST OFFERED TO PATIENT:YES DATE OFFERED:10/24/2018 TEST ACCEPTED:NO HEP-C TEST OFFERED TO PATIENT:YES DATE OFFERED:10/24/2018 REASON:PATIENT DECLINED TEST ACCEPTED:NO REASON:PATIENT DECLINED BROCHURE PROVIDED TO PATIENTNO DECLINES OTHERS AT HOME: NONE. EDUCATION LEVEL OF EDUCATION:HIGH SCHOOL DIET: REGULAR. LANGUAGE LANGUAGES SPOKEN:ROMANSH DOMESTIC VIOLENCE DO YOU FEEL SAFE IN YOUR ENVIRONMENT?YES BMI CARE GOAL FOLLOW-UP ABOVE NORMAL BMI FOLLOW-UPDIETARY MANAGEMENT EDUCATION, GUIDANCE, AND COUNSELING RECREATIONAL DRUG USE DRUG USE?NO EXERCISE: WALKS. LEARNING BARRIERS / SPECIAL NEEDS CHANGE FROM LAST VISIT?NO 10/24/2018 BARRIERS TO LEARNING?NO HEARING IMPAIRED?NO VISION IMPAIRED?NO COGNITIVELY IMPAIRED?YES : S/P CONCUSION READINESS TO LEARN?YES LEARNING PREFERENCES?NO LEARNING CAPABILITIES PRESENT?YES EMOTIONAL BARRIERS?NO SPECIAL DEVICES?NO STEAM TUNNEL FEEDER NEEDED?NO PAIN CLINIC PFS, CLERGY, PUBLIC HEALTH REFERRALS PFS REFERRAL NEEDED?NO CLERGY REFERRAL NEEDED?NO PUBLIC HEALTH REFERRAL NEEDED?NO WAS THE PROVIDER NOTIFIED OF ANY PERTINENT INFO?NO HAS THE PATIENT BEEN EDUCATED REGARDING HIS/HER PLAN OF CARE?YES HAS THE PATIENT BEEN EDUCATED REGARDING PAIN, THE RISK FOR PAIN, THE IMPORTANCE OF EFFECTIVE PAIN MANAGEMENT, AND THE PAIN ASSESSMENT PROCESS?YES LATEX QUESTIONNAIRE LATEX ALLERGY : HAVE YOU EVER DEVELOPED ANY TYPE OF REACTION AFTER HANDLING LATEX PRODUCTS SUCH RUBBER GLOVES, CONDOMS, DIAPHRAGMS, BALLOONS, SOCKS, OR UNDERWEAR?NO LATEX ALLERGY : HAVE YOU EVER DEVELOPED ANY TYPE OF REACTION DURING OR AFTER DENTAL APPOINTMENT, VAGINAL/RECTAL EXAMINATION, SURGICAL PROCEDURE, OR ANY OTHER EXPOSURE?NO DATE ASKED : 01/12/2019 LATEX RISK : HAVE YOU EVER HAD ANY DIFFICULTY BREATHING OR HIVES AFTER EATING OR HANDLING ANY FRUITS, OR VEGETABLES; SUCH KIWI, BANANAS, STONE FRUITS, OR CHESTNUTSNO LATEX RISK : DO YOU HAVE A PREVIOUS PERSONAL HISTORY OF MORE THAN NINE SURGERIES, SPINA BIFIDA, OR REPEATED CATHERIZATIONS? NO LATEX RISK : ARE YOU FREQUENTLY EXPOSED TO LATEX PRODUCTS IN YOUR OCCUPATION?NO CAFFEINE CAFFEINE USE?YES HOW OFTEN AND HOW MUCH? DAILY USE ADVANCE DIRECTIVE ADVANCE DIRECTIVE DISCUSSED WITH PATIENT:YES PT HAS NO ADVANCED DIRECTIVES DECLINES INFORMATION OR ASSISTANCE IN FILLING HCP OUT [facility] [id number] NONE MARITAL STATUS: .. ALCOHOL SCREENING DID YOU HAVE A DRINK CONTAINING ALCOHOL IN THE PAST YEAR?NO POINTS0 INTERPRETATIONNEGATIVE OCCUPATION: DISABLED. SEXUAL HX HAD SEX IN THE LAST 12 MONTHS (VAGINAL, ORAL, OR ANAL)?NO HAVE YOU EVER HAD AN STD?NO REVIEWED WITH PT, 05/09/18 LASREVIEWED WITH PT 01/12/19 1525 LAS. HOSPITALIZATION/MAJOR DIAGNOSTIC PROCEDURE DENIES PAST HOSPITALIZATION REVIEW OF SYSTEMS REVIEWED BY: PROVIDER: QAMAR PHILLIPS MD . CONSTITUTIONAL: ANY CHANGE IN YOUR MEDICAL CONDITION? NO . CHILLS NO . FEVER NO . INFECTION: DO YOU HAVE NEW INFECTIONS? NO . DO YOU HAVE HISTORY OF MRSA? NO . MUSCULOSKELETAL: ANY NEW PATTERNS OF PAIN OR NUMBNESS? NO . GASTROENTEROLOGY: ANY NEW CHANGE IN BOWEL CONTROL? NO . GENITOURINARY: ANY NEW CHANGE IN BLADDER CONTROL? NO . IS THERE A CHANCE YOU COULD BE ? NO . HEMATOLOGY/LYMPH: DO YOU TAKE ANY BLOOD THINNERS? (FOR EXAMPLE- COUMADIN, PLAVIX, AGGRENOX, PLATEL, PRADAXA, OR XARELTO) NO . WHEN WAS YOUR LAST DOSE? DATE: TIME: . NEUROLOGY: HAVE YOU FALLEN IN THE PAST 12 MONTHS? NO . ANY NEW EXTREMITY NUMBNESS OR WEAKNESS? NO . CARDIOLOGY: DO YOU HAVE A PACEMAKER OR DEFIBRILLATOR? NO . RESPIRATORY: HAVE YOU BEEN SICK IN THE PAST WEEK? NO . FEVER NO . FLU LIKE SYMPTOMS? NO . COUGH NO . INTEGUMENTARY: DO YOU HAVE ANY RASHES OR OPEN SORES? NO . ALLERGIC/IMMUNO: ARE YOU ALLERGIC TO IV DYE? NO . ANY NEW ALLERGIES? NO . PSYCHIATRIC: DO YOU HAVE THOUGHTS OF HURTING YOURSELF OR SOMEONE ELSE? NO . ARE YOU ABUSED, NEGLECTED, OR IN AN UNSAFE ENVIRONMENT? NO . ENDOCRINOLOGY: ARE YOU DIABETIC? NO . OTHER: DO YOU NEED ANY PRESCRIPTIONS? NO . IF YES, PLEASE LIST: ____ . ANY NEW PROBLEMS WITH YOUR MEDICATIONS? NO . WHEN DID YOU LAST EAT? ____ . WHEN DID YOU LAST DRINK? ____ . WHAT DID YOU LAST DRINK? ____ . NAME OF PERSON DRIVING YOU HOME? ____ . DO YOU HAVE ANY OTHER QUESTIONS OR CONCERNS NO . VITAL SIGNS WT 176 LBS, HT 5'7 1/2", BMI 27.16 INDEX, BP 154/83 MM HG, HR 61 /MIN, RR 18 /MIN, TEMP 96.9 F, OXYGEN SAT % 97%, NA INITIALS SC 15:30, REVIEWED BY: EM. EXAMINATION GENERAL EXAMINATION: PATIENT IS ALERT O X 3 AND COOPERATIVE. TENDERNESS IN THE LOW BACK AREA. PRESENCE OF BANDS OF TISSUE AND TRIGGER POINTS WITH RESTRICTION OF MOVEMENT OF THE LOW BACK. PAIN INCREASES OVER THE LUMBAR FACET JOINTS WITH EXTENSION AND LATERAL ROTATION OF THE BACK. TENDERNESS IN THE NECK AREA. PRESENCE OF BANDS OF TISSUE AND TRIGGER POINTS WITH RESTRICTION OF MOVEMENT OF THE NECK, ESPECIALLY ON THE LEFT SIDE. PATIENT CAN ABDUCT BOTH ARMS TO SHOULDER LEVEL, BUT WITH SOME DIFFICULTIES ON THE LEFT SIDE. ADEQUATE STRENGTH OF BOTH UPPER EXTREMITIES. CERVICAL MRI DONE ON 12/31/2018 SHOWS SEVERE STENOSIS AT C5-C6 LEVEL. LUMBAR MRI DONE ON 12/31/2018 SHOWS FACET ARTHROPATHY CHANGES. ASSESSMENTS MYALGIA, OTHER SITE - M79.18 (PRIMARY) CERVICALGIA - M54.2 LUMBAGO WITH SCIATICA, LEFT SIDE - M54.42 LUMBAGO WITH SCIATICA, RIGHT SIDE - M54.41 OTHER CHRONIC PAIN - G89.29 CERVICAL DISC DISORDER WITH RADICULOPATHY OF CERVICAL REGION - M50.10 SPONDYLOSIS OF LUMBAR REGION WITHOUT MYELOPATHY OR RADICULOPATHY - M47.816 TREATMENT MYALGIA, OTHER SITE CLINICAL NOTES: WE DISCUSSED SEVERAL ISSUES WITH MR. PRABHAKAR'S PAIN MANAGEMENT CASE. THE PATIENT SAYS HE IS STRETCHING HIS MEDICATION MUCH POSSIBLE, BUT IT IS HARD WHEN HE IS IN GREAT PAIN. I RECOMMENDED TO THE PATIENT THAT HE TRIES AN INJECTION THERAPY TO HELP WITH HIS PAIN AND POSSIBLY ALLOW HIM TO REDUCE HIS MEDICATIONS FURTHER. DUE TO THE TRIGGER POINTS, BANDS OF TISSUE, AND RESTRICTION OF MOVEMENT, I WOULD LIKE TO MOVE FORWARD WITH NECK AND LOW BACK TRIGGER POINT INJECTIONS AT THIS TIME. WE DISCUSSED THE BENEFITS, RISKS, AND ALTERNATIVES OF THE INJECTION AND THE PATIENT WOULD LIKE TO PROCEED. I AM LOOKING FOR LONG LASTING PAIN RELIEF AND INCREASED FUNCTIONALITY WITH THIS PROCEDURE FOR THE PATIENT. THE PATIENT HAS HAD TRIGGER POINT INJECTIONS DONE IN THE PAST THAT HAS PROVIDED ADEQUATE PAIN RELIEF FOR HIM. THE PATIENT HAS BEEN STRETCHING HIS PRESCRIPTIONS MUCH POSSIBLE. I OFFERED TO REFILL HIS MEDICATIONS TODAY, BUT HE DID NOT NEED ANY REFILLS SINCE HE STILL HAS SOME MEDICATION LEFT OVER. HE IS TRYING TO USE THE LEAST AMOUNT OF MEDICATIONS POSSIBLE. THE PATIENT WILL FOLLOW UP IN 6 WEEKS WITH THE NURSE PRACTITIONER. INSTRUCTIONS WERE GIVEN, QUESTIONS WERE ANSWERED, PATIENT REPORTS UNDERSTANDING AND AGREES WITH THE PLAN. I, MARCELA ZULETA, DOCUMENTED THE ABOVE INFORMATION ACTING A SCRIBE FOR DR. PHILLIPS. I HAVE REVIEWED THE ABOVE DOCUMENT, WRITTEN BY MARCELA ZULETA SCRIBKala AND I VERIFY THAT IT IS ACCURATE. . PROCEDURES PN WORKMANS' COMP OPINION IN YOUR OPINION, WAS THE INCIDENT THAT THE PATIENT DESCRIBED THE COMPETENT MEDICAL CAUSE OF THIS INJURY/ILLNESS? YES ARE THE PATIENT'S COMPLAINTS CONSISTENT WITH HIS/HER HISTORY OF THE INJURY/ILLNESS? YES IS THE PATIENT'S HISTORY OF THE INJURY/ILLNESS CONSISTENT WITH YOUR OBJECTIVE FINDING? YES WHAT IS THE PERCENTAGE OF TEMPORARY IMPAIRMENT? MODERATE TO MARKED = 66.7% IS THE PATIENT WORKING? NO DOCTOR ON SITE: QAMAR PEPE MD PREVENTIVE MEDICINE PAIN CLINIC TEACHING: PROCEDURE TEACHING TRIGGER POINT INJECTION INFORMATION PRINTED FOR AND REVIEWED WITH PATIENT 05/20/19 1709 NLJ. 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 IT IS NOT A COPY OF THE [employer] PROGRESS NOTE. MTDD
== END ==
LOC: M PAIN 15:15
PROVIDERS: ATTEND Anesthesiology
DX: M79.18 Myalgia, other site (principal); M54.2 Cervicalgia; M54.42 Lumbago with sciatica, left side; M54.41 Lumbago with sciatica, right side; G89.29 Other chronic pain; M47.816 Spondylosis without myelopathy or radiculopathy, lumbar region; E78.00 Pure hypercholesterolemia, unspecified; F17.210 Nicotine dependence, cigarettes, uncomplicated; Z79.899 Other long term (current) drug therapy

== ENCOUNTER → 2019-07-01 | Outpatient (CLI) | payer OTHER | LOC: M PAIN 13:45 | PROVIDERS: ATTEND Family Medicine | DX: M79.18 Myalgia, other site (principal); E78.00 Pure hypercholesterolemia, unspecified; G60.3 Idiopathic progressive neuropathy; M47.812 Spondylosis without myelopathy or radiculopathy, cervical region; M47.816 Spondylosis without myelopathy or radiculopathy, lumbar region; G89.4 Chronic pain syndrome; G56.00 Carpal tunnel syndrome, unspecified upper limb; Z79.891 Long term (current) use of opiate analgesic; Z79.899 Other long term (current) drug therapy; F17.210 Nicotine dependence, cigarettes, uncomplicated ==

== ENCOUNTER → 2019-10-15 | Outpatient (CLI) | payer OTHER | LOC: M PAIN 08:45 | PROVIDERS: ATTEND Anesthesiology | DX: Z53.20 Procedure and treatment not carried out because of patient's decision for unspecified reasons (principal) ==

== ENCOUNTER → 2019-10-16 | Outpatient (CLI) | payer OTHER ==
[~2019-10-16] MED LIST changes: +BUPIVACAINE HCL 0.25% 30 ML VIAL As Ordered ONE; +TRIAMCINOLONE ACETONIDE SUSP 40 MG/ML VIAL (J3301) As Ordered ONE
--- NOTE | 2019-10-30 01:07 | ECWPNPC ---
PATIENT NAME: CORINE PRABHAKAR : 1955 GENDER: MALE VISIT DATE: 10/16/2019 DISCHARGE DATE: 10/16/19 0000 VISIT LOCKED DATE TIME: PHYSICIAN: QAMAR PHILLIPS MD PHYSICIAN PAGER NO: [phone] RESOURCE: QAMAR PHILLIPS MD REASON FOR APPOINTMENT 1. BILAT TPI-LOW BACK HISTORY OF PRESENT ILLNESS HISTORY OF PRESENT ILLNESS: PAIN THE PATIENT DESCRIBES THE PAIN... FALL RISK SCREENING: SCREENING :NO FALLS REPORTED IN THE LAST YEAR CURRENT MEDICATIONS TAKING LOSARTAN POTASSIUM 50 MG TABLET 1 TABLET ORALLY ONCE A DAY, NOTES: 10/15/19@1600 TAKING ATORVASTATIN CALCIUM 20 MG TABLET 1 TABLET ORALLY ONCE A DAY, NOTES: 10/15/19@1600 TAKING HYDROCODONE-ACETAMINOPHEN 7.5-325 MG TABLET 1 TABLET NEEDED ORALLY EVERY 6 HRS, NOTES: 10/15/19@1600 NOT-TAKING SOMA 350 MG TABLET 1 TABLET NEEDED ORALLY FOR SPSMS AND PAIN EVERY 12 HOURS NEEDED MDD2, NOTES: 2 DAYS AGO DISCONTINUED HYDROCODONE-IBUPROFEN 7.5-200 MG TABLET 1 TABLET NEEDED ORALLY FOR PAIN BID MDD2, NOTES: 10/15/19@1600 DISCONTINUED CYMBALTA 30 MG CAPSULE DELAYED RELEASE PARTICLES 1 CAPSULE ORALLY FOR PAIN ONCE A DAY DISCONTINUED IBUPROFEN 800 MG TABLET 1 TABLET WITH FOOD ORALLY DAILY NEEDED MDD1 DISCONTINUED ZONISAMIDE 100 MG CAPSULE 1 CAPSULE ORALLY ONCE A DAY MEDICATION LIST REVIEWED AND RECONCILED WITH THE PATIENT PAST MEDICAL HISTORY HIGH CHOLESTEROL 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 SURGICAL HISTORY TONSILLECTOMY HEMORRHOIDS ACHILES TENDON REPAIR [facility] (DR. SAMS ) FAMILY HISTORY FATHER: ALIVE MOTHER: 1 SON(S) , 2 DAUGHTER(S) - HEALTHY. MOM HAD ALZHEIMER, 2 CHILDREN WITH THYROID ISSUES,FAMILY HISTORY OF BLOOD CLOTS. SOCIAL HISTORY GENERAL: TOBACCO USE ARE YOU A:CURRENT SMOKER BEEN CUTTING DOWN TO 5 OR 6 A DAY ARE YOU INTERESTED IN QUITTING?THINKING ABOUT QUITTING HOW MANY CIGARETTES A DAY DO YOU SMOKE?11-20 HOW SOON AFTER YOU WAKE UP DO YOU SMOKE YOUR FIRST CIGARETTE?WITHIN 5 MIN HOW OFTEN DO YOU SMOKE CIGARETTES?EVERY DAY PATIENT COUNSELED ON THE DANGERS OF TOBACCO USE AND URGED TO QUIT:10/16/2019 ADDITIONAL FINDINGS: TOBACCO USERMODERATE CIGARETTE SMOKER (10-19 CIGS/DAY) SMOKING CESSATION INFORMATION GIVEN09/15/2019 NO CLASSES AVAILABLE DID GIVE PHONE NUMBER MERLIN BAEZA HIV / HEP-C SCREENING HIV TEST OFFERED TO PATIENT:YES DATE OFFERED:09/15/2019 TEST ACCEPTED:NO HEP-C TEST OFFERED TO PATIENT:YES DATE OFFERED:09/15/2019 REASON:PATIENT DECLINED TEST ACCEPTED:NO REASON:PATIENT DECLINED BROCHURE PROVIDED TO PATIENTNO DECLINES OTHERS AT HOME: NONE. EDUCATION LEVEL OF EDUCATION:HIGH SCHOOL DIET: REGULAR. LANGUAGE LANGUAGES SPOKEN:MALAY DOMESTIC VIOLENCE DO YOU FEEL SAFE IN YOUR ENVIRONMENT?YES BMI CARE GOAL FOLLOW-UP ABOVE NORMAL BMI FOLLOW-UPDIETARY MANAGEMENT EDUCATION, GUIDANCE, AND COUNSELING RECREATIONAL DRUG USE DRUG USE?NO EXERCISE: WALKS. LEARNING BARRIERS / SPECIAL NEEDS CHANGE FROM LAST VISIT?NO 09/15/19 BARRIERS TO LEARNING?NO HEARING IMPAIRED?NO VISION IMPAIRED?NO COGNITIVELY IMPAIRED?YES : S/P CONCUSION READINESS TO LEARN?YES LEARNING PREFERENCES?NO LEARNING CAPABILITIES PRESENT?YES EMOTIONAL BARRIERS?NO SPECIAL DEVICES?NO SURGERY ATTENDANT NEEDED?NO PAIN CLINIC PFS, CLERGY, PUBLIC HEALTH REFERRALS PFS REFERRAL NEEDED?NO CLERGY REFERRAL NEEDED?NO PUBLIC HEALTH REFERRAL NEEDED?NO WAS THE PROVIDER NOTIFIED OF ANY PERTINENT INFO?NO HAS THE PATIENT BEEN EDUCATED REGARDING HIS/HER PLAN OF CARE?YES HAS THE PATIENT BEEN EDUCATED REGARDING PAIN, THE RISK FOR PAIN, THE IMPORTANCE OF EFFECTIVE PAIN MANAGEMENT, AND THE PAIN ASSESSMENT PROCESS?YES LATEX QUESTIONNAIRE LATEX ALLERGY : HAVE YOU EVER DEVELOPED ANY TYPE OF REACTION AFTER HANDLING LATEX PRODUCTS SUCH RUBBER GLOVES, CONDOMS, DIAPHRAGMS, BALLOONS, SOCKS, OR UNDERWEAR?NO LATEX ALLERGY : HAVE YOU EVER DEVELOPED ANY TYPE OF REACTION DURING OR AFTER DENTAL APPOINTMENT, VAGINAL/RECTAL EXAMINATION, SURGICAL PROCEDURE, OR ANY OTHER EXPOSURE?NO LATEX RISK : HAVE YOU EVER HAD ANY DIFFICULTY BREATHING OR HIVES AFTER EATING OR HANDLING ANY FRUITS, OR VEGETABLES; SUCH KIWI, BANANAS, STONE FRUITS, OR CHESTNUTSNO LATEX RISK : DO YOU HAVE A PREVIOUS PERSONAL HISTORY OF MORE THAN NINE SURGERIES, SPINA BIFIDA, OR REPEATED CATHERIZATIONS? NO LATEX RISK : ARE YOU FREQUENTLY EXPOSED TO LATEX PRODUCTS IN YOUR OCCUPATION?NO DATE ASKED : 10/16/2019 CAFFEINE CAFFEINE USE?YES HOW OFTEN AND HOW MUCH? DAILY USE ADVANCE DIRECTIVE ADVANCE DIRECTIVE DISCUSSED WITH PATIENT:YES PT HAS NO ADVANCED DIRECTIVES DECLINES INFORMATION OR ASSISTANCE IN FILLING HCP OUT PT. DECLINES INFORMATION RASTAFARI [id number] NONE MARITAL STATUS: .. ALCOHOL SCREENING DID YOU HAVE A DRINK CONTAINING ALCOHOL IN THE PAST YEAR?NO POINTS0 INTERPRETATIONNEGATIVE OCCUPATION: DISABLED. SEXUAL HX HAD SEX IN THE LAST 12 MONTHS (VAGINAL, ORAL, OR ANAL)?NO HAVE YOU EVER HAD AN STD?NO REVIEWED WITH PT, 05/09/18 LASREVIEWED WITH PT 01/12/19 1525 LASREVIEWED WITH PATIENT 07/01/2019 LASREVIEWED WITH PATIENT . HOSPITALIZATION/MAJOR DIAGNOSTIC PROCEDURE NO HOSPITALIZATION HISTORY. REVIEW OF SYSTEMS REVIEWED BY: PROVIDER: . CONSTITUTIONAL: ANY CHANGE IN YOUR MEDICAL CONDITION? NO . CHILLS NO . FEVER NO . INFECTION: DO YOU HAVE NEW INFECTIONS? NO . DO YOU HAVE HISTORY OF MRSA? NO . MUSCULOSKELETAL: ANY NEW PATTERNS OF PAIN OR NUMBNESS? NO . GASTROENTEROLOGY: ANY NEW CHANGE IN BOWEL CONTROL? NO . GENITOURINARY: ANY NEW CHANGE IN BLADDER CONTROL? NO . IS THERE A CHANCE YOU COULD BE ? NO . HEMATOLOGY/LYMPH: DO YOU TAKE ANY BLOOD THINNERS? (FOR EXAMPLE- COUMADIN, PLAVIX, AGGRENOX, PLATEL, PRADAXA, OR XARELTO) NO . WHEN WAS YOUR LAST DOSE? DATE: TIME: . NEUROLOGY: HAVE YOU FALLEN IN THE PAST 12 MONTHS? NO . ANY NEW EXTREMITY NUMBNESS OR WEAKNESS? YES,CONTINUES TO GET WORSE . CARDIOLOGY: DO YOU HAVE A PACEMAKER OR DEFIBRILLATOR? NO . RESPIRATORY: HAVE YOU BEEN SICK IN THE PAST WEEK? NO . FEVER NO . FLU LIKE SYMPTOMS? NO . COUGH NO . INTEGUMENTARY: DO YOU HAVE ANY RASHES OR OPEN SORES? NO . ALLERGIC/IMMUNO: ARE YOU ALLERGIC TO IV DYE? NO . ANY NEW ALLERGIES? NO . PSYCHIATRIC: DO YOU HAVE THOUGHTS OF HURTING YOURSELF OR SOMEONE ELSE? NO . ARE YOU ABUSED, NEGLECTED, OR IN AN UNSAFE ENVIRONMENT? NO . ENDOCRINOLOGY: ARE YOU DIABETIC? NO . OTHER: DO YOU NEED ANY PRESCRIPTIONS? NO . IF YES, PLEASE LIST: ____ . ANY NEW PROBLEMS WITH YOUR MEDICATIONS? NO . WHEN DID YOU LAST EAT? ____10/15/19 . WHEN DID YOU LAST DRINK? ____06 . WHAT DID YOU LAST DRINK? ____BLACK COFFEE . NAME OF PERSON DRIVING YOU HOME? ____ROHAN PRABHAKAR . DO YOU HAVE ANY OTHER QUESTIONS OR CONCERNS NO . VITAL SIGNS WT 178 LBS, HT 5'7 1/2", BMI 27.46 INDEX, BP 127/69 MM HG, HR 58 /MIN, RR 16 /MIN, TEMP 98 F, OXYGEN SAT % 99, SAFE IN ENV? (Y/N) YES, REVIEWED BY: VD. ASSESSMENTS MYALGIA, OTHER SITE - M79.18 (PRIMARY) PROCEDURES PN WORKMANS' COMP OPINION IN YOUR OPINION, WAS THE INCIDENT THAT THE PATIENT DESCRIBED THE COMPETENT MEDICAL CAUSE OF THIS INJURY/ILLNESS? YES ARE THE PATIENT'S COMPLAINTS CONSISTENT WITH HIS/HER HISTORY OF THE INJURY/ILLNESS? YES IS THE PATIENT'S HISTORY OF THE INJURY/ILLNESS CONSISTENT WITH YOUR OBJECTIVE FINDING? YES WHAT IS THE PERCENTAGE OF TEMPORARY IMPAIRMENT? MODERATE TO MARKED = 66.7% IS THE PATIENT WORKING? NO DOCTOR ON SITE: QAMAR PEPE MD PN TRIGGER POINT INJECTION WITH STEROIDS PRE PROCEDURE DIAGNOSIS 1. MYALGIA 2. PAIN AT RIGHT AND LEFT LOW BACK AREA POST PROCEDURE DIAGNOSIS 1. MYALGIA 2. PAIN AT RIGHT AND LEFT LOW BACK AREA PROCEDURE TRIGGER POINT INJECTION AT RIGHT AND LEFT LOW BACK AREA SURGEON DR. QAMAR PHILLIPS SMALL APPLIANCE ASSEMBLY SUPERVISOR NONE ANESTHESIA LOCAL PRE PROCEDURE NOTE THE PATIENT HAS A HISTORY OF CHRONIC PAIN AT THE RIGHT AND LEFT LOW BACK AREA. I EVALUATED THE PATIENT AND REVIEWED THE CHART. THERE IS EVIDENCE OF BANDS OF TISSUE WITH RESTRICTION OF MOVEMENT AND PRESENCE OF TRIGGER POINTS AT THE AFFECTED AREA. I WENT OVER THE RISKS, ALTERNATIVES AND BENEFITS ASSOCIATED WITH THIS PROCEDURE. THE PATIENT WOULD LIKE TO PROCEED AND GIVES CONSENT TO PERFORM THE PROCEDURE. THE PATIENT DENIES UNEXPLAINABLE WEIGHT LOSS, FEVER, CHILLS, OR NEW CHANGES IN URINARY OR BOWEL CONTROL DESCRIPTION OF PROCEDURE THE PATIENT WAS BROUGHT TO THE PROCEDURE ROOM AND PLACED IN THE SITTING POSITION. THE AREA WAS CLEANED WITH ALCOHOL. THE PROCEDURE WAS DONE USING ASEPTIC STERILE TECHNIQUE. I CHECKED LATERALITY AND THE LEVEL WHERE THE PROCEDURE WAS GOING TO BE PERFORMED WITH THE PATIENT AND THE SUPPORTING STAFF AT THE MOMENT OF THE TIMEOUT IN THE PROCEDURE ROOM. USING A 25-GAUGE NEEDLE, TRIGGER POINTS WERE INJECTED AT THE RIGHT AND LEFT LOW BACK AREA WITH A TOTAL OF 40 ML OF BUPIVACAINE 0.25% AND KENALOG 40 MG. THERE WAS NO EVIDENCE OF BLOOD, PARESTHESIA OR CEREBROSPINAL FLUID DURING THE PROCEDURE. THE PATIENT WAS SENT TO THE RECOVERY ROOM. THE PATIENT WAS MOVING THE EXTREMITIES AND DOING WELL. THERE WAS NO COMPLICATION DURING THE PROCEDURE POST PROCEDURE NOTE THE PATIENT WILL BE SEEN IN A FOLLOWUP IN THE NEXT FEW WEEKS. I AM LOOKING FOR LONG-LASTING PAIN RELIEF WITH THIS INTERVENTION. INSTRUCTIONS WERE GIVEN, QUESTIONS WERE ANSWERED, AND THE PATIENT EXPRESSED UNDERSTANDING AND AGREES WITH THE PLAN. I, PENNY MELO, DOCUMENTED THE ABOVE INFORMATION ACTING A SCRIBE FOR DR. PHILLIPS. I HAVE REVIEWED THE ABOVE DOCUMENT, WRITTEN BY LILLY LOERA, AND I VERIFY THAT IT IS ACCURATE PROCEDURE CODES 78234 INJECT TRIGGER POINT, 1 OR 2 DISPOSITION & COMMUNICATION FOLLOW UP 3 WEEKS ELECTRONICALLY SIGNED BY QAMAR PHILLIPS MD, MD ON 10/29/2019 AT 04:29 PM EST DISCLAIMER : THIS IS A VISIT SUMMARY EXTRACTED FROM THE [employer] CHART. IT IS NOT A COPY OF THE [employer] PROGRESS NOTE. FARSHAD
== END ==
LOC: M PAIN 08:30
PROVIDERS: ATTEND Anesthesiology
DX: M79.18 Myalgia, other site (principal); F17.210 Nicotine dependence, cigarettes, uncomplicated; Z79.899 Other long term (current) drug therapy
CPT/HCPCS: 20552; J3301

== ENCOUNTER → 2019-11-04 | Outpatient (CLI) | payer OTHER ==
[~2019-11-04] MED LIST changes: -BUPIVACAINE HCL 0.25% 30 ML VIAL As Ordered ONE; -TRIAMCINOLONE ACETONIDE SUSP 40 MG/ML VIAL (J3301) As Ordered ONE
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
== END ==
LOC: M PAIN 14:15
PROVIDERS: ATTEND Family Medicine
DX: M79.18 Myalgia, other site (principal)

== ENCOUNTER → 2019-12-07 | Outpatient (CLI) | payer MEDICARE, OTHER ==
[2019-12-07 13:48] LABS: ALT/SGPT 46 U/L (12-78); BLOOD UREA NITROGEN 20 MG/DL (7-18); CALCIUM LEVEL 9.3 MG/DL (8.8-10.2); CARBON DIOXIDE LEVEL 28 MEQ/L (21-32); CHLORIDE LEVEL 105 MEQ/L (98-107); CHOLESTEROL LEVEL 218 MG/DL (<200); CHOLESTEROL RISK RATIO 5.317 (<5); CREATININE FOR GFR 1.29 MG/DL (0.70-1.30); GLOMERULAR FILTRATION RATE > 60.0 (>49); GLUCOSE, FASTING 98 MG/DL (70-100); HDL CHOLESTEROL 41 MG/DL (>40); LDL CHOLESTEROL 148 MG/DL (<100); NON-HDL-C 177 MG/DL; POTASSIUM SERUM 4.2 MEQ/L (3.5-5.1); SODIUM LEVEL 137 MEQ/L (136-145); TRIGLYCERIDES LEVEL 146 MG/DL (<150)
== END ==
LOC: M LAB 12:15
PROVIDERS: ATTEND Family Medicine
DX: I10 Essential (primary) hypertension (principal); E78.00 Pure hypercholesterolemia, unspecified

== ENCOUNTER → 2020-03-16 | Outpatient (CLI) | payer MEDICARE ==
[2020-03-16 17:24] LABS: HEMATOCRIT 45.3 % (42.0-52.0); HEMOGLOBIN 14.9 g/dl (13.5-17.5); MEAN CORPUSCULAR HEMOGLOBIN 31.6 pg (27.0-33.0); MEAN CORPUSCULAR HGB CONC 32.9 g/dl (32.0-36.5); PLATELET COUNT, AUTOMATED 336 10^3/uL (150-450); RED BLOOD COUNT 4.72 10^6/uL (4.30-6.10); WHITE BLOOD COUNT 9.2 10^3/uL (4.0-10.0)
[2020-03-16 18:03] LABS: ALT/SGPT 61 U/L (12-78); BLOOD UREA NITROGEN 18 MG/DL (7-18); CALCIUM LEVEL 8.9 MG/DL (8.8-10.2); CARBON DIOXIDE LEVEL 30 MEQ/L (21-32); CHLORIDE LEVEL 107 MEQ/L (98-107); CHOLESTEROL LEVEL 175 MG/DL (<200); CREATININE FOR GFR 1.24 MG/DL (0.70-1.30); GLOMERULAR FILTRATION RATE > 60.0 (>49); GLUCOSE, FASTING 95 MG/DL (70-100); HDL CHOLESTEROL 35 MG/DL (>40); LDL CHOLESTEROL 97 MG/DL (<100); NON-HDL-C 140 MG/DL; POTASSIUM SERUM 4.3 MEQ/L (3.5-5.1); SODIUM LEVEL 143 MEQ/L (136-145); TRIGLYCERIDES LEVEL 217 MG/DL (<150)
== END ==
LOC: M LAB 16:24
PROVIDERS: ATTEND Family Medicine
DX: L40.50 Arthropathic psoriasis, unspecified (principal); E78.00 Pure hypercholesterolemia, unspecified; I10 Essential (primary) hypertension

== ENCOUNTER → 2020-04-29 | Outpatient (REF) | payer MEDICARE ==
[2020-06-14 23:28] LABS: C REACTIVE PROTEIN QUANTITATIV < 0.30 MG/DL (0.00-0.30); RHEUMATOID FACTOR QUANT < 10.0 IU/ML (<15.0)
== END ==
LOC: M PLALAB 09:50
PROVIDERS: ATTEND Internal Medicine Rheumatology
DX: M19.90 Unspecified osteoarthritis, unspecified site (principal)

== ENCOUNTER → 2020-07-12 | Outpatient (REF) | payer MEDICARE ==
[2020-07-12 18:37] LABS: HEPATITIS B SURFACE ANTIGEN NEGATIVE (NEGATIVE); HEPATITIS C VIRUS ABY INDEX 0.1 INDEX (<0.8)
== END ==
LOC: M SFHCRHEU 12:20
PROVIDERS: ATTEND Internal Medicine
DX: L40.50 Arthropathic psoriasis, unspecified (principal)

== ENCOUNTER 2020-09-16 09:05 | Emergency (ER) | payer MEDICARE, OTHER ==
[~2020-09-16] VITALS: Ht 175.3 cm; Wt 79.4 kg
[2020-09-16 09:02] VITALS: BP 155/79
[2020-09-16] MEDS ORDERED: HYDR-3716 (09:12)
[2020-09-16] MEDS ORDERED: HUMI40IN2 (09:12)
[2020-09-16] MEDS ORDERED: B-2100TA (09:12)
== END 2020-09-16 10:57 | disposition left against medical advice (07) ==
LOC: M ED 09:05
DX: M79.642 Pain in left hand (principal); I10 Essential (primary) hypertension; E78.5 Hyperlipidemia, unspecified; G89.29 Other chronic pain; M54.9 Dorsalgia, unspecified; F17.210 Nicotine dependence, cigarettes, uncomplicated

== ENCOUNTER 2020-09-23 09:36 | Emergency (ER) | payer MEDICARE, OTHER ==
[~2020-09-23] VITALS: Ht 175.3 cm; Wt 77.3 kg
[~2020-09-23 09:36] MED LIST changes: +B-2100TA; +HUMI40IN2; +HYDR-3716 PO
[2020-09-23] MEDS ORDERED: ASPIRIN 81 MG CHEW TABLET PO ONE (10:00)
[2020-09-23 10:22] LABS: BASO # 0.1 10^3/uL (0.0-0.2); BASO % 0.7 % (0.0-1.0); EOS # 0.3 10^3/uL (0.0-0.5); HEMATOCRIT 50.8 % (42.0-52.0); HEMOGLOBIN 16.8 g/dl (13.5-17.5); LYMPH # 2.7 10^3/uL (1.5-5.0); LYMPH % 32.7 % (24.0-44.0); MEAN CORPUSCULAR HEMOGLOBIN 31.8 pg (27.0-33.0); MEAN CORPUSCULAR HGB CONC 33.1 g/dl (32.0-36.5); MONO # 0.7 10^3/uL (0.0-0.8); MONO % 7.9 % (0.0-5.0); NEUTROPHILS # 4.5 10^3/uL (1.5-8.5); NEUTROPHILS % 54.5 % (36.0-66.0); PLATELET COUNT, AUTOMATED 320 10^3/uL (150-450); RED BLOOD COUNT 5.29 10^6/uL (4.30-6.10); WHITE BLOOD COUNT 8.2 10^3/uL (4.0-10.0)
--- NOTE | 2020-09-23 10:28 | REP ---
INDICATION: CHEST PAIN COMPARISON: 07/28/2015 TECHNIQUE: Portable AP view of the chest FINDINGS: The mediastinum and cardiac silhouette are stable and within normal limits for portable technique. The lung martino are clear without acute consolidation, effusion, or pneumothorax. Skeletal structures are intact. IMPRESSION: No acute cardiopulmonary process appreciated. <Electronically signed by Eliud Hutchinson > 09/23/20 1024
[2020-09-23 10:39] LABS: INR 0.92; PROTHROMBIN TIME 12.6 SECONDS (12.5-14.3)
[2020-09-23 10:52] LABS: ALT/SGPT 39 U/L (12-78); BILIRUBIN,DIRECT < 0.1 MG/DL (0.0-0.2); BILIRUBIN,TOTAL 0.5 MG/DL (0.2-1.0); LIPASE 94 U/L (73-393); NT-PRO BNP 29 PG/ML (<125); TOTAL PROTEIN 6.9 GM/DL (6.4-8.2)
[2020-09-23] MEDS ORDERED: ISOVUE-370 76% 100ML VIAL As Ordered ONE (11:08)
--- NOTE | 2020-09-23 12:06 | REP ---
INDICATION: chest pain COMPARISON: None. TECHNIQUE: Axial contrast enhanced images from the thoracic inlet to the upper abdomen using pulmonary embolus technique with multiplanar re-formations. 100 ml Isovue 370 intravenous contrast material administered without complication. This CT examination was performed using the following dose reduction techniques: Automated exposure control, adjustment of mA and/or kv according to the patient's size, and use of iterative reconstruction technique. FINDINGS: Satisfactory enhancement of the pulmonary vasculature is achieved and no filling defects are identified to suggest pulmonary embolus. Further evaluation of the mediastinum demonstrates normal thoracic aorta, heart and pericardium. The bilateral lung martino are well aerated without consolidation pleural effusion or pneumothorax. Tracheobronchial tree is patent. Few right-sided noncalcified nodules are identified measuring up to approximately 6 mm (series 502; image 37). Mild right hilar adenopathy is suggested with lymph nodes up to 16 mm short axis diameter. Upper abdomen demonstrates hepatic hypodensities measuring up to approximately 1.5 cm and are otherwise nonspecific. Bilateral adrenal glands are normal. Pancreatic calcifications consistent with chronic pancreatitis. Visualized musculoskeletal structures without acute osseous abnormality. IMPRESSION: 1. No evidence for pulmonary embolus. 2. Few right-sided noncalcified nodules up to 6 mm. No prior chest CT for comparison. Clinical correlation and 6 month follow-up may be warranted. 3. Upper abdomen demonstrates chronic pancreatitis and hepatic hypodensities up to 1.5 cm. <Electronically signed by Eliud Hutchinson > 09/23/20 0479
--- NOTE | 2020-09-23 12:36 | REP ---
INDICATION: pain COMPARISON: None. TECHNIQUE: Loza scale and color Doppler evaluation left upper extremity using linear high frequency transducer. FINDINGS: Ultrasound examination of the left upper extremity including distal jugular, axillary, subclavian, brachial, cephalic, and basilic veins demonstrate normal compressibility flow and wave patterns in response to respiration and augmentation. There is no evidence for deep venous thrombosis. Incidental focal area of nonocclusive thrombus in the brachial artery at the level of the antecubital fossa may be related to underlying atherosclerotic disease. IMPRESSION: No evidence for deep venous thrombosis of the left upper extremity. <Electronically signed by Eliud Hutchinson > 09/23/20 [id number]
--- NOTE | 2020-09-23 12:46 | REP ---
INDICATION: LEFT ARM PAIN. COMPARISON: None. TECHNIQUE: Axial contrast-enhanced images from the level of the shoulder through the wrist/hand using 100 cc Isovue 370 intravenous contrast material. Coronal and sagittal reformations along with post processed MIP reformations obtained for angiographic evaluation. FINDINGS: Evaluation is limited due to poor arterial enhancement. The left axillary and brachial arteries are faintly identified to the level of the distal brachial artery without obvious evidence for surrounding atherosclerotic changes. Enhancement below the level of the distal brachial artery is insufficient for further evaluation. Surrounding musculature, subcutaneous tissues and osseous structures are intact and normal. No significant pathology identified. IMPRESSION: 1. Essentially normal appearance of the left upper extremity from the level of the shoulder to the wrist/hand including musculature, osseous structures and surrounding subcutaneous tissues. 2. Arterial vasculature is incompletely evaluated due to insufficient enhancement. No obvious calcific atheromatous changes are noted. <Electronically signed by Eliud Hutchinson > 09/23/20 8323
[2020-09-23] MEDS ORDERED: ASPI81TA26 PO (14:22)
[2020-09-23] MEDS ORDERED: CHLO125TA PO (14:24)
[2020-09-23] MEDS ORDERED: ELIQ5TAB PO (14:24)
[2020-09-23] MEDS ORDERED: APIXABAN 5 MG TAB (ELIQUIS) PO ONE (14:30)
--- NOTE | 2020-09-23 14:41 | CR.PDOC ---
General Date of Consultation: Sep 23, 2020 Consultation Patient seen and examined in the ER today. He was seen in the ER a week ago with more significant ischemic changes in the left upper extremity, but checked himself out of the ER before a full evaluation could be completed. He returns today with his main complaint of chest pain but also still mild ischemic changes in the left upper extremity. He says that 2 weeks ago he started noticing his hand would turn white with activity, but with return to normal color at rest. Then the day before [place], he came in with pain and ischemic changes that were fairly persistent, but had resolved by the time he was evaluated in the ER. Today, he definitely has improvement overall, but still some temperature changes in the left versus the right arm. On my exam, I can see a brachial artery pulse in both arms visibly at the skin and can palpate a pulse in both arms. I can palpate her radial pulse in the left and the right arm, and both are strong. I can Doppler a 2+ ulnar signal at the wrist and he has a biphasic palmar arch signal. His fingers are warm on both hands, although slightly cooler on the left, and he has less than 1 second capillary refill in the left fingers. I reviewed the patient's imaging. He had a CTA of the chest that showed widely patent aortic arch with good flow into the left subclavian artery and good flow through the axillary artery but the arm was not visualized past the proximal brachial artery. He also had a venous duplex of the left upper extremity which was negative for SVT or DVT, but it did incidentally show some nonocclusive thrombus in the left brachial artery. I suspect the patient had an embolic event a few weeks ago, and is slowly starting to break down. He definitely has more flow then he will likely did when this event occurred originally. He does not seem to be in any acute distress today, so I do not feel urgent intervention is needed. I'd like to see the patient back next week in clinic and we will ultrasound his arm again and schedule him for an elective thrombectomy if needed. I've gone over with him the risks benefits and alternatives to surgery, the benefits of aspirin daily and anticoagulation with either Coumadin or eliqu is due to an arterial thrombosis of unknown origin, the need for a cardiac workup due to recurrent history of chest pain as well as an embolic event to the left upper extremity, and all of his questions were answered. I've discussed this with Dr. Bustamante, who saw the patient's on both of his visits to the ER recently. She is in agreement to this plan. We appreciate the upper chain to participate in the care of this patient. Vital Signs/I&O Vital Signs Date Time Temp Pulse Resp B/P (MAP) Pulse Ox O2 Delivery O2 Flow Rate FiO2 09/23/20 14:01 76 18 97 Room Air 09/23/20 13:31 173/99 (123) 09/23/20 09:36 98.3 Laboratory Data Labs 24H Laboratory Tests 2 09/23/20 10:01: Immature Granulocyte % (Auto) 0.2, Neutrophils (%) (Auto) 54.5, Lymphocytes (%) (Auto) 32.7, Monocytes (%) (Auto) 7.9H, Eosinophils (%) (Auto) 4.0H, Basophils (%) (Auto) 0.7, Neutrophils # (Auto) 4.5, Lymphocytes # (Auto) 2.7, Monocytes # (Auto) 0.7, Eosinophils # (Auto) 0.3, Basophils # (Auto) 0.1, Nucleated Red Blood Cells % (auto) 0.0, Prothrombin Time 12.6, Prothromb Time International Ratio 0.92, Total Bilirubin 0.5, Direct Bilirubin < 0.1, Aspartate Amino Transf (AST/SGOT) 30, Alanine Aminotransferase (ALT/SGPT) 39, Alkaline Phosphatase 63, PB-Bum-W-Type Natriuretic Peptide 29, Total Protein 6.9, Albumin 4.0, Albumin/Globulin Ratio 1.4, Lipase 94, Thyroid Stimulating Hormone (TSH) 2.610 09/23/20 10:07: POC Troponin I (Misc) 0.01 09/23/20 10:08: POC Glucose (Misc Panel) 106H, POC Sodium (Misc Panel) 138, POC Potassium (Misc Panel) 4.5, POC Chloride (Misc Panel) 106, POC Total CO2 (Misc Panel) 26.0, POC Blood Urea Nitrogen (Misc Panel 22, POC Ionized Calcium (Misc Panel) 4.6, POC Creatinine (Misc Panel) 1.0, POC Hematocrit (Misc Panel) 50.0 CBC/BMP Laboratory Tests 09/23/20 10:01 Allergies Coded Allergies: No Known Allergies (Unverified , 09/16/20) Home Medications Scheduled Apixaban (Eliquis) 5 Mg Tablet, 5 MG PO ASDIRECTED, #74 10 MG (2 TABS) TWICE PER DAY FOR 7 DAYS THEN 5 MG (1 TAB) TWICE PER DAY Aspirin (Aspirin EC) 81 Mg Tablet.dr, 1 TAB PO DAILY for pain for 30 Days, #30 Chlorthalidone (Chlorthalidone) 25 Mg Tablet, 1 TAB PO DAILY for 30 Days, #30 Scheduled PRN Hydrocodone/Acetaminophen (Hydrocodone-Acetamin 7.5-325) 1 Each Tablet, 1 TAB PO Q6HP PRN for pain, (Reported) Miscellaneous Medications Adalimumab (Humira(Cf) Pen) 40 Mg/0.4 Ml Pen.ij.kit, (Reported) CY ENGLISH MD Sep 23, 2020 14:41
[2020-09-23 15:24] VITALS: BP 168/98
--- NOTE | 2020-09-24 08:56 | ED PDOC ---
Post-Departure Follow-Up radiology report faxxed to Brandy Luu MD Sep 24, 2020 08:56
--- NOTE | 2020-09-24 09:16 | ECGEPIP ---
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
[2020-10-28] MEDS ORDERED: ATOR40TA75 PO (09:40)
[2020-10-28] MEDS ORDERED: B-2100TA PO (09:40)
[2020-10-28] MEDS ORDERED: LOSA50TA88 PO (09:40)
[2020-10-28] MEDS ORDERED: SERT25TA21 PO (09:40)
== END 2020-09-23 15:31 | disposition home or self-care (01) ==
LOC: M ED 09:36
DX: I74.4 Embolism and thrombosis of arteries of extremities, unspecified (principal); I10 Essential (primary) hypertension; L40.50 Arthropathic psoriasis, unspecified; Z79.899 Other long term (current) drug therapy; Z79.82 Long term (current) use of aspirin; Z79.01 Long term (current) use of anticoagulants; F17.210 Nicotine dependence, cigarettes, uncomplicated
CPT/HCPCS: 36415; 71045; 71275; 73206; 80047; 80076; 83690; 83880; 84443; 84484; 85025; 85610; 93005; 93041; 93971; 94760; 99285; Q9967

== ENCOUNTER → 2020-11-06 | Outpatient (CLI) | payer MEDICARE, OTHER ==
[~2020-11-06] MED LIST changes: +ASPI81TA26 PO; +ATOR40TA75 PO; +B-2100TA PO; +CHLO125TA PO; +ELIQ5TAB PO; +IBUP200C25 PO; +LOSA50TA88; +LOSA50TA88 PO; +OXYC1TAB23 PO; +SERT25TA21 PO
== END ==
LOC: M LABSMTC 11:06
PROVIDERS: ATTEND Anesthesiology
DX: Z01.812 Encounter for preprocedural laboratory examination (principal); Z20.822 Contact with and (suspected) exposure to COVID-19

== ENCOUNTER → 2020-11-10 | Outpatient (CLI) | payer MEDICARE, OTHER ==
--- NOTE | 2020-11-10 10:02 | REP ---
INDICATION: CONTUSION OF PART OF HEAD. COMPARISON: None. TECHNIQUE: AP and lateral views of the facial bones FINDINGS: Osseous structures are intact. No evidence for acute fracture or dislocation. Overlying soft tissues are unremarkable. No subcutaneous emphysema or foreign body. IMPRESSION: No acute fracture or dislocation appreciated. <Electronically signed by Eliud Hutchinson > 11/10/20 0958
--- NOTE | 2020-11-10 10:04 | REP ---
INDICATION: CONTUSION OF PART OF NECK. COMPARISON: None. TECHNIQUE: AP, lateral, swimmer's, open-mouth views of the cervical spine FINDINGS: Moderate degenerative discogenic changes at C5-6 and C6-7 including endplate sclerosis, disc space narrowing, and marginal osteophyte formation. No acute fracture/compression injury or subluxation. Alignment and lordosis maintained. Open mouth view demonstrates normal C1-C2 articulation and odontoid process. IMPRESSION: Moderate focal degenerative spondylosis at C5-6 and C6-7. <Electronically signed by Eliud Hutchinson > 11/10/20 1000
== END ==
LOC: M WUC 08:49
PROVIDERS: ATTEND Physician Assistant
DX: S00.83XA Contusion of other part of head, initial encounter (principal); X58.XXXA Exposure to other specified factors, initial encounter; Y92.89 Other specified places as the place of occurrence of the external cause; Y93.89 Activity, other specified; Y99.8 Other external cause status; M47.812 Spondylosis without myelopathy or radiculopathy, cervical region

== ENCOUNTER 2020-11-11 06:24 | Day surgery (SDC) | payer MEDICARE ==
[~2020-11-11] VITALS: Ht 172.7 cm; Wt 79.4 kg
[~2020-11-11 06:24] MED LIST changes: -IBUP200C25 PO; -LOSA50TA88; -OXYC1TAB23 PO
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
--- OUTSIDE RECORDS SUMMARY | 2020-11-11 06:28 | CCD ---
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 Active confirmed 864493641 Problem Hypercholesterolemia E78.00 Active confirmed 93992988 Problem Tobacco use disorder F17.200 Active confirmed 542103074 Problem Primary osteoarthritis involving multiple joints M 15.0 Active confirmed 711646450 Problem Essential hypertension I10 Active confirmed 62127073 Problem Cervical disc disorder with radiculopathy M50.10 Active confirmed 977678177 Problem Myalgia M79.1 Active confirmed 48316158 Problem Facet arthropathy, cervical M47.812 Active confirme d 340911825 Problem Arthropathy M12.9 Active confirmed 95462695 3 Problem Cervical disc disorder with radiculopathy of cervical steven on M50.10 Active confirmed 808393075 Problem Lumbago with sciatica, left side M54.42 Active confirmed 134718666 Problem Lumbago with sciatica, right side M54.41 Active confirmed 497314616159644 Problem Left inguinal hernia K40.90 Active confirmed 317899090 Problem Myalgia, other site M79.18 Active confirmed 44927128 Problem Spondylosis of lumbosacral region without myelop athy or radiculopathy M47.817 Active confirmed 71000725 Problem Abnormal ECG R94.31 Active confirmed 1072054 03 Problem Psoriatic arthritis L40.50 Active confirmed 233712154 Problem Cervical disc disorder at C5-C6 level with radiculopathy M50.122 Active confirmed 96286527 I did some brief research on the ASTYM method, and it does look as though it works, so I will submit a request for that Problem 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.816 Active confirmed 28444408 Problem Cervicalgia M54.2 Active confirmed 74376617 Problem Other chronic pain G89.29 Active confirmed 8 0222075 Problem Post concussion syndrome F07.81 Active confirmed 57804401 He will continue follow-up with the neurologist Problem Posttraumatic stress disorder F43.10 Active confirm ed [id number] We had a long talk today about [...] No Known Allergies ENCOUNTERS from 1955 to 2020-11-09 Encounter Location Date Provider Diagnosis [address] [address] Oct, 021 Bobby Donovan IMMUNIZATIONS Vaccine Route Administration Date Status Influenza [...] Education Language: Question Answer Notes Languages spoken: Khmer Pentecostalism: Question Answer Notes Pentecostalism 33 None Sexual Hx: Question Answer Notes [...] in the morning with food Orally On Sep, Active Hydrocodone-Acetaminophen 7.5-325 MG 1 tablet as neede d Orally every 6 hours as needed Sep, Active PROCEDURES No Information RESULTS No Results REASON FOR VISIT Peer Review MEDICAL (GENERAL) HISTORY Type Description Date Medical [...] Sep, Next Appt Details Provider Name:Lluvia Wade, 5 03:00:00 PM, [address] [place], [address], Provider Name:Ethan Swenson, 2021-01-27 01 :00:00 PM, [address] [place] [address], [phone], Insurance Providers Payer Name Payer Address Payer Phone Insured Name Patient Relati onship to Insured Coverage Start Date Coverage End Date MEDICARE Part A and B [address] [facility] [address] [phone] CORINE PRABHAKAR self
--- OUTSIDE RECORDS SUMMARY | 2020-11-11 06:28 | CCD ---
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.812 Active confirmed 609716717 Problem Hypercholesterolemia E78.00 Active confirmed 34417164 Problem Tobacco use disorder F17.200 Active confirmed 637920706 Problem Primary osteoarthritis involving multiple joints M 15.0 Active confirmed 561271405 Problem Essential hypertension I10 Active confirmed 95373333 Problem Cervical disc disorder with radiculopathy M50.10 Active confirmed 266027058 Problem Myalgia M79.1 Active confirmed 47291308 Problem Facet arthropathy, cervical M47.812 Active confirme d 389395650 Problem Arthropathy M12.9 Active confirmed 75387576 3 Problem Cervical disc disorder with radiculopathy of cervical steven on M50.10 Active confirmed 199938416 Problem Lumbago with sciatica, left side M54.42 Active confirmed 281798012 Problem Lumbago with sciatica, right side M54.41 Active confirmed 020389912247142 Problem Left inguinal hernia K40.90 Active confirmed 224131677 Problem Myalgia, other site M79.18 Active confirmed 64789657 Problem Spondylosis of lumbosacral region without myelop athy or radiculopathy M47.817 Active confirmed 22787459 Problem Abnormal ECG R94.31 Active confirmed 2228002 03 Problem Psoriatic arthritis L40.50 Active confirmed 966621183 Problem Cervical disc disorder at C5-C6 level with radiculopathy M50.122 Active confirmed 18125899 I did some brief research on the ASTYM method, and it does look as though it works, so I will submit a request for that Problem 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.816 Active confirmed 99418623 Problem Cervicalgia M54.2 Active confirmed 43945542 Problem Other chronic pain G89.29 Active confirmed 8 0399675 Problem Post concussion syndrome F07.81 Active confirmed 42224606 He will continue follow-up with the neurologist Problem Posttraumatic stress disorder F43.10 Active confirm ed [id number] We had a long talk today about [...] to 2020-11-09 Encounter Location Date Provider Diagnosis [facility] [address] [place] [address] Oct, Ethan Swenson IMMUNIZATIONS Vaccine Route Administration Date Status Influenza [...] Education Language: Question Answer Notes Languages spoken: Bahamian Scientologist: Question Answer Notes Scientologist 33 None Sexual Hx: Question Answer Notes [...] Information RESULTS No Results REASON FOR VISIT addendum MEDICAL (GENERAL) HISTORY Type Description Date Medical [...] Provider Name:Lluvia Wade, 5 03:00:00 PM, [address] [place], [address], Provider Name:Ethan Swenson, 2021-01-27 01 :00:00 PM, [address] [place] [address], [address], Insurance Providers Payer Name Payer Address Payer Phone Insured Name Patient Relati onship to Insured Coverage Start Date Coverage End Date MEDICARE Part A and B [address] [facility] [address] [phone] CORINE PRABHAKAR self
--- OUTSIDE RECORDS SUMMARY | 2020-11-11 06:28 | CCD ---
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.812 Active confirmed 515028714 Problem Hypercholesterolemia E78.00 Active confirmed 11789142 Problem Tobacco use disorder F17.200 Active confirmed 161704105 Problem Primary osteoarthritis involving multiple joints M 15.0 Active confirmed 563103799 Problem Essential hypertension I10 Active confirmed 30138701 Problem Cervical disc disorder with radiculopathy M50.10 Active confirmed 307127091 Problem Myalgia M79.1 Active confirmed 81191552 Problem Facet arthropathy, cervical M47.812 Active confirme d 710606262 Problem Arthropathy M12.9 Active confirmed 73602612 3 Problem Cervical disc disorder with radiculopathy of cervical steven on M50.10 Active confirmed 013576457 Problem Lumbago with sciatica, left side M54.42 Active confirmed 002096226 Problem Lumbago with sciatica, right side M54.41 Active confirmed 582461023347470 Problem Left inguinal hernia K40.90 Active confirmed 516085898 Problem Myalgia, other site M79.18 Active confirmed 79245275 Problem Spondylosis of lumbosacral region without myelop athy or radiculopathy M47.817 Active confirmed 89278457 Problem Abnormal ECG R94.31 Active confirmed 4153761 03 Problem Psoriatic arthritis L40.50 Active confirmed 630886131 Problem Cervical disc disorder at C5-C6 level with radiculopathy M50.122 Active confirmed 49890890 I did some brief research on the ASTYM method, and it does look as though it works, so I will submit a request for that Problem 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.816 Active confirmed 71473103 Problem Cervicalgia M54.2 Active confirmed 51941995 Problem Other chronic pain G89.29 Active confirmed 8 1431728 Problem Post concussion syndrome F07.81 Active confirmed 01287486 He will continue follow-up with the neurologist Problem Posttraumatic stress disorder F43.10 Active confirm ed [id number] We had a long talk today about [...] to 2020-11-09 Encounter Location Date Provider Diagnosis [facility] [address] [place] [address] Oct, Ethan Swenson IMMUNIZATIONS Vaccine Route Administration Date Status Imm: Influenza 18 yrs & older Flublok Unknown Jul 23 18 Refused SOCIAL HISTORY Tobacco Use: Social History Observation Description Date Details (start date - stop date) Current Smoker Sex Assigned At : Social History Observation Description Sex Assigned At Unknown Education: Question Answer Notes Level of Education: High School Audit Question Answer Notes Total Score: 0 Interpretation: Alcohol Education Language: Question Answer Notes Languages spoken: Slovenian Buddhist: Question Answer Notes Buddhist 33 None Sexual Hx: Question Answer Notes [...] in the morning with food Orally On day Sep, Active Hydrocodone-Acetaminophen 7.5-325 MG 1 tablet as neede d Orally every 6 hours as needed Sep, Active PROCEDURES No Information RESULTS No Results REASON FOR VISIT No Information MEDICAL (GENERAL) HISTORY Type Description Date Medical [...] Provider Name:Lluvia Wade, 5 03:00:00 PM, [address] [place], [address], Provider Name:Ethan Swenson, 2021-01-27 01 :00:00 PM, [address] [place] [address], [address], Insurance Providers Payer Name Payer Address Payer Phone Insured Name Patient Relati onship to Insured Coverage Start Date Coverage End Date MEDICARE Part A and B [address] [facility] [id number] [phone] CORINE PRABHAKAR self
--- OUTSIDE RECORDS SUMMARY | 2020-11-11 06:28 | CCD | Continuity of Care Document ---
Author Author [facility] Organization Unknown Address [address] [place] [address] Phone [phone] Care Team Providers Care Director Power Name Role Phone Ethan Swenson MD [facility] [phone] Problems Description No Information Available Social History Type Date Description Comments Sex Unknown ETOH Use Denies alcohol use Tobacco Use Start: Unknown Patient is a current smoker, smo kes every day 1 ppd Allergies, Adverse Reactions, Alerts Description No Known Drug Allergies Medications Active Medications SIG Qnty Indications Ordering Provide r Date Hydrocodone-Acetaminophen 5-325mg Tablets 1 tab by mouth q6 hours as needed pain Unknown Atorvastatin Calcium Unknown 00/0 Chlorthalidone Unknown Eliquis Unknown History Medications No Active Medications Unknown - 09/21/2020 Immunizations Description No Information Available Vital Signs Date Vital Result Comment 11/09/2020 4:07pm BP Systolic 168 mmHg manual BP Diastolic 98 mmHg manual Heart Rate 108 /min Respiratory Rate 14 /min O2 % BldC Oximetry 99 % Body Temperature 98.9 F Weight 170.00 lb Height 68 inches 5'8" BMI (Body Mass Index) 25.8 kg/m2 09/21/2020 10:16am BP Systolic 152 mmHg BP Diastolic 88 mmHg Heart Rate 78 /min Respiratory Rate 20 /min O2 % BldC Oximetry 98 % Body Temperature 97.6 F Weight 170.00 lb Height 69 inches 5'9" BMI (Body Mass Index) 25.1 kg/m2 Pain Level 4 Results Description No Information Available Procedures Description No Information Available Medical Devices Description No Information Available Encounters Type Date Location Provider Dx Diagnosis Office Visit 09/21/2020 9:40a Main Office [facility] R22 .32 Localized swelling, mass and lump, left upper limb Assessments Date Code Description Provider 09/21/2020 R22.32 Localized swelling, mass and lum p, left upper limb [facility] Plan of Treatment No Information Available Functional Status Description No Information Available Mental Status Description No Information Available Referrals Description No Information Available
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
--- OUTSIDE RECORDS SUMMARY | 2020-11-11 06:28 | CCD ---
Author Author [facility] Organization [facility] Address Unknown Phone Unavailable Care Team Providers Care [employer] Manager Name Role Phone Ethan Swenson Unavailable PROBLEMS Type Condition ICD9-CM Code AUV13-EA Code Onset Dates Condition S tatus W/U Status Risk SNOMED Code Notes Problem Psoriasis L40.9 Active confirmed 1601814 Problem 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.812 Active confirmed 035623748 Problem Hypercholesterolemia E78.00 Active confirmed 42498168 Problem Tobacco use disorder F17.200 Active confirmed 746557466 Problem Primary osteoarthritis involving multiple joints M 15.0 Active confirmed 842156398 Problem Essential hypertension I10 Active confirmed 52223233 Problem Cervical disc disorder with radiculopathy M50.10 Active confirmed 427282855 Problem Myalgia M79.1 Active confirmed 25927320 Problem Facet arthropathy, cervical M47.812 Active confirme d 996136394 Problem Arthropathy M12.9 Active confirmed 36895430 3 Problem Cervical disc disorder with radiculopathy of cervical steven on M50.10 Active confirmed 703641547 Problem Lumbago with sciatica, left side M54.42 Active confirmed 220506050 Problem Lumbago with sciatica, right side M54.41 Active confirmed 545544453643850 Problem Left inguinal hernia K40.90 Active confirmed 320844033 Problem Myalgia, other site M79.18 Active confirmed 84614120 Problem Spondylosis of lumbosacral region without myelop athy or radiculopathy M47.817 Active confirmed 47423070 Problem Abnormal ECG R94.31 Active confirmed 9570337 03 Problem Psoriatic arthritis L40.50 Active confirmed 167224326 Problem Cervical disc disorder at C5-C6 level with radiculopathy M50.122 Active confirmed 67940967 I did some brief research on the ASTYM method, and it does look as though it works, so I will submit a request for that Problem 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.816 Active confirmed 37534164 Problem Cervicalgia M54.2 Active confirmed 60206991 Problem Other chronic pain G89.29 Active confirmed 8 6608378 Problem Post concussion syndrome F07.81 Active confirmed 10009036 He will continue follow-up with the neurologist Problem Posttraumatic stress disorder F43.10 Active confirm ed [id number] We had a long talk today about [...] No Known Allergies ENCOUNTERS from 1955 to 2020-10-29 Encounter Location Date Provider Diagnosis 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 and Hypercholesterolemia E78.00 IMMUNIZATIONS Vaccine Route Administration Date Status Influenza [...] Education Language: Question Answer Notes Languages spoken: Indonesian Zoroastrianism: Question Answer Notes Zoroastrianism 33 None Sexual Hx: Question Answer Notes [...] REASON FOR REFERRAL No Information VITAL SIGNS Weight 174 lbs Oct, Height 67.5 in Oct, BMI 26.85 kg/m2 Oct, Heart Rate 67 /min Oct, Respiratory Rate 18 /min Oct, Temperature 99.0 degrees Fahrenheit Oct, Oximetry 99%RA Oct, Blood pressure systolic 145 mm Hg Oct, Blood pressure diastolic 79 mm Hg Oct, MEDICATIONS Medication SIG (Take, Route, Frequency, Duration) [...] Information RESULTS No Results REASON FOR VISIT lft brachial thromboembolectomy MEDICAL (GENERAL) HISTORY Type Description Date Medical [...] No Information FUNCTIONAL STATUS No Information ASSESSMENTS Encounter Date Diagnosis Assessment Notes Treatment Notes Treatm ent Clinical Notes Oct, Pre-op exam (ICD-10 - Z01.818) 1. Urgency of the surgery: elective but time sensitive 2. Active Cardiac Conditions: none 3. Surgery-specific risk: High 4: Patient's functional capacity: Patient reports activity that matches at least 4 METS 5: Clinical risk factors: No major predictors but multiple cardiovascular risk factors and abnormal ECG Recommendation: I think that additional risk stratification is needed before proceeding with surgery. Urgent clearance request will be forwarded to Dr. Sheriff. Oct, Post concussion syndrome (ICD-10 - F07.8 1) He will continue follow- up with the neurologist Oct, Cervical disc disorder with radiculopathy (ICD-1 0 - M50.10) Oct, Left inguinal hernia (ICD-10 - K40.90) Oct, Abnormal ECG (ICD-10 - R94.31) Oct, Essential hypertension (ICD-10 - I10) Oct, Cervical disc disorder at C5 -C6 level with radiculopathy (ICD-10 - M50.122) Oct, Brachial artery thrombus (ICD-10 - I74.2) Oct, Hypercholesterolemia (ICD-10 - E78.00) Please resume Atorvastatin. Your LDL cholesterol was significantly improved by this treatment and Atorvastatin can favorably influence perioperative risk for your upcoming surgery. PLAN OF TREATMENT Medication Medication Name Sig [...] Orally every 6 hours as needed Sep, Treatment Notes Assessment Notes Clinical Notes Pre-op exam 1. Urgency of the surgery: e lective but time sensitive2. Active Cardiac Conditions: none3. Surgery-specific risk: High4: Patient's functional capacity: Patient reports activity that matches at least 4 METS5: Clinical risk factors: No major predictors but multiple cardiovascular risk factors and abnormal ECGRecommendation: I think that additional risk stratification is needed before proceeding with surgery. Urgent clearance request will be forwarded to Dr. Sheriff. Hypercholesterolemia Please resume Atorvastatin. Your LDL cholesterol was significantly improved by this treatment and Atorvastatin can favorably influence perioperative risk for your upcoming surgery. Next Appt Details 3 Months Reason: Provider Name:Lluvia Wade, 5 03:00:00 PM, [address] [place], [address], Provider Name:Ethan Swenson, 2021-01-27 01 :00:00 PM, [address] [place] [address], [phone], Insurance Providers Payer Name Payer Address Payer Phone Insured Name Patient Relati onship to Insured Coverage Start Date Coverage End Date MEDICARE Part A and B [facility] [address] [facility] [id number] CORINE PRABHAKAR self
--- OUTSIDE RECORDS SUMMARY | 2020-11-11 06:29 | CCD ---
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.812 Active confirmed 145922907 Problem Hypercholesterolemia E78.00 Active confirmed 45626468 Problem Tobacco use disorder F17.200 Active confirmed 889821945 Problem Primary osteoarthritis involving multiple joints M 15.0 Active confirmed 604019038 Problem Essential hypertension I10 Active confirmed 76671656 Problem Cervical disc disorder with radiculopathy M50.10 Active confirmed 877933439 Problem Myalgia M79.1 Active confirmed 15852683 Problem Facet arthropathy, cervical M47.812 Active confirme d 348876999 Problem Arthropathy M12.9 Active confirmed 23825848 3 Problem Cervical disc disorder with radiculopathy of cervical steven on M50.10 Active confirmed 664347532 Problem Lumbago with sciatica, left side M54.42 Active confirmed 675813764 Problem Lumbago with sciatica, right side M54.41 Active confirmed 389873232664022 Problem Left inguinal hernia K40.90 Active confirmed 328189131 Problem Myalgia, other site M79.18 Active confirmed 81969834 Problem Spondylosis of lumbosacral region without myelop athy or radiculopathy M47.817 Active confirmed 28991110 Problem Abnormal ECG R94.31 Active confirmed 2669934 03 Problem Psoriatic arthritis L40.50 Active confirmed 331966923 Problem Cervical disc disorder at C5-C6 level with radiculopathy M50.122 Active confirmed 84227749 I did some brief research on the ASTYM method, and it does look as though it works, so I will submit a request for that Problem 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.816 Active confirmed 02232986 Problem Cervicalgia M54.2 Active confirmed 09179242 Problem Other chronic pain G89.29 Active confirmed 8 1987418 Problem Post concussion syndrome F07.81 Active confirmed 80971603 He will continue follow-up with the neurologist Problem Posttraumatic stress disorder F43.10 Active confirm ed [id number] We had a long talk today about [...] to 2020-10-29 Encounter Location Date Provider Diagnosis [address] [address] Sep, Lluvia Wade Post concussion syndrome F07.81 ; Cervic al disc disorder at C5-C6 level with radiculopathy M50.122 ; Traumatic brain injury, without loss of consciousness, sequela S06.9X0S and Posttraumatic stress disorder F43.10 IMMUNIZATIONS Vaccine Route Administration Date Status Influenza [...] Education Language: Question Answer Notes Languages spoken: Finnish Religious: Question Answer Notes Religious 33 None Sexual Hx: Question Answer Notes [...] FOR REFERRAL No Information VITAL SIGNS Weight 172.2 lbs Sep, Height 67.5 in Sep, BMI 26.57 kg/m2 Sep, Heart Rate 93 /min Sep, Respiratory Rate 18 /min Sep, Temperature 99.0 degrees Fahrenheit Sep, Oximetry 99 Sep, Blood pressure systolic 132 mm Hg Sep, Blood pressure diastolic 88 mm Hg Sep, MEDICATIONS Medication SIG (Take, Route, Frequency, Duration) [...] Information RESULTS No Results REASON FOR VISIT 3 Months, 60 minutes (Reason: w/c - post-concussion syndrome), OT wants to orde r MARTY hands on therapy MEDICAL (GENERAL) HISTORY Type Description Date Medical [...] Notes Treatment Notes Treatm ent Clinical Notes Sep, Post concussion syndrome (ICD-10 - F07.8 1) He will continue follow- up with the neurologist Sep, Cervical disc disorder at C5 -C6 level with radiculopathy (ICD-10 - M50.122) I did some brief research on the MARTY petersen ethod, and it does look as though it works, so I will submit a request for that Sep, Traumatic brain injury, with out loss of consciousness, sequela (ICD-10 - S06.9X0S) Although we definitely new the Mejia has postconcussion syndrome, he is not up to this point carried a diagnosis of traumatic brain injury, which is clearly the case, and clearly the root cause of his posttraumatic stress disorder Sep, Posttraumatic stress disorder (ICD-10 - F43.10) We had a long talk today about [...] not take it and not tell me PLAN OF TREATMENT Medication Medication Name Sig Start Date Stop Date Physical Therapy evaluate and treat mechanical eval & tx DX=M50.12, C-spine pain 3 x/wk x Sep, Chlorthalidone 25 MG 1 tablet in the morning with food Orall y Once a day Sep, Atorvastatin Calcium 40 MG 1 tablet Orally Once a day Dec, Hydrocodone-Acetaminophen 7.5-325 MG 1 tablet as neede d Orally every 6 hours as needed Sep, Next Appt Details 4 Weeks, 60 min Reason:w/c - PTSD, neck pain Provider Name:Lluvia Wade, 5 03:00:00 PM, [address] [place], [address], Provider Name:Ethan Sewnson, 2021-01-27 01 :00:00 PM, [address] [place] [address], [phone], Follow Up:4 Weeks, 60 minw/c - PTSD, neck pain Insurance Providers Payer Name Payer Address Payer Phone Insured Name Patient Relati onship to Insured Coverage Start Date Coverage End Date MEDICARE Part A and B [address] [facility] [id number] [phone] MEJIA PRABHAKAR self
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
--- OUTSIDE RECORDS SUMMARY | 2020-11-11 06:29 | CCD ---
Author Author [facility] Organization [facility] Address Unknown Phone Unavailable Care Team Providers Care Dishwasher Busser Name Role Phone Ethan Swenson Unavailable PROBLEMS Type Condition ICD9-CM Code CWE94-UX Code Onset Dates Condition S tatus SNOMED Code Notes Problem Spondylosis of lumbosacral region without myelop athy or radiculopathy M47.817 Active 56225826 Problem Cervical disc disorder at C5-C6 level with radiculopathy M50.122 Active 04827344 I advised Mejia to use the T ENS unit as much as he possibly can, and we discussed ways that he could enlist some help to apply the sensors to his neck Problem 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.812 Active 745753988 Problem 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.816 Active 84972455 Problem Hypercholesterolemia E78.00 Active 67989319 Problem Tobacco use disorder F17.200 Active 249395889 Problem Essential hypertension I10 Active 74537531 Problem Psoriasis L40.9 Active 5747415 Problem Cervical disc disorder with radiculopathy M50.10 Active 479894214 Problem Psoriatic arthritis L40.50 Active 484977156 Problem Myalgia, other site M79.18 Active 21362545 Problem Other chronic pain G89.29 Active 32744993 Problem Facet arthropathy, cervical M47.812 Active 4275 96755 Problem Arthropathy M12.9 Active 234265703 Problem Post concussion syndrome F07.81 Active 0915428 4 I encouraged him to do the actual home exercise program he was given for his balance, and to keep the appointment with the neurologist Problem Primary osteoarthritis involving multiple joints M 15.0 Active Problem Myalgia M79.1 Active 78182054 Problem Cervical disc disorder with radiculopathy of cervical steven on M50.10 Active 438612302 Problem Lumbago with sciatica, left side M54.42 Active 506168610 Problem Lumbago with sciatica, right side M54.41 Active 541974897556629 Problem Cervicalgia M54.2 Active 95992290 ALLERGIES No Known Allergies ENCOUNTERS from 1955 to 2020-09-22 Encounter Location Date Provider Diagnosis [facility] [address] [place] [address] Aug, Ethan Swenson IMMUNIZATIONS Vaccine Route Administration Date [...] Education Language: Question Answer Notes Languages spoken: Lao Denominational: Question Answer Notes Denominational 33 None Sexual Hx: Question Answer Notes [...] Notes Start Da te End Date Status Atorvastatin Calcium 40 MG 1 tablet Orally Once a day for 90 day (s) Dec, Not-Taking Physical Therapy evaluate and treat for post-concussio n syndrome, f07.81 3 x/wk x for 30 Days Oct, Not-Taking Humira Pen 40 MG/0.4ML as directed Subcutaneous QOW for 28 day(s ) Jun, Active Losartan Potassium 50 MG 1 tablet Orally Once a day for 90 day(s) Not-Taking Hydrocodone-Acetaminophen 7.5-325 MG 1 tablet as neede d Orally every 6 hours as needed for 30 Days Aug, Active PROCEDURES No Information RESULTS No Results REASON FOR VISIT white hand/ cool to touch MEDICAL (GENERAL) HISTORY Type Description Date Medical [...] Information ASSESSMENTS No Information PLAN OF TREATMENT Next Appt Details Provider Name:Lluvia Wade, 2020-09-24 9 02:00:00 PM, [facility] [place], [address], Insurance Providers Payer Name Payer Address Payer Phone Insured Name Patient Relati onship to Insured Coverage Start Date Coverage End Date MEDICARE Part A and B [address] [facility] [id number] [facility] [phone] MEJIA PRABHAKAR self
--- OUTSIDE RECORDS SUMMARY | 2020-11-11 06:29 | CCD ---
Author Author [facility] Organization [facility] Address Unknown Phone Unavailable Care Team Providers Care Cover Operator Name Role Phone Lluvia Wade Unavailable PROBLEMS Type Condition ICD9-CM Code [id number] Code Onset Dates Condition S tatus SNOMED Code Notes Problem Spondylosis of lumbosacral region without myelop athy or radiculopathy M47.817 Active 35149710 Problem Cervical disc disorder at C5-C6 level with radiculopathy M50.122 Active 74575216 I advised Mejia to use the T ENS unit as much as he possibly can, and we discussed ways that he could enlist some help to apply the sensors to his neck Problem 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.812 Active 886804051 Problem 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.816 Active 17949441 Problem Hypercholesterolemia E78.00 Active 87717351 Problem Tobacco use disorder F17.200 Active 766283375 Problem Essential hypertension I10 Active 63833298 Problem Psoriasis L40.9 Active 3724948 Problem Cervical disc disorder with radiculopathy M50.10 Active 044629751 Problem Psoriatic arthritis L40.50 Active 751607348 Problem Myalgia, other site M79.18 Active 75968322 Problem Other chronic pain G89.29 Active 79109668 Problem Facet arthropathy, cervical M47.812 Active 4275 95166 Problem Arthropathy M12.9 Active 592762734 Problem Post concussion syndrome F07.81 Active 4218366 4 I encouraged him to do the actual home exercise program he was given for his balance, and to keep the appointment with the neurologist Problem Primary osteoarthritis involving multiple joints M 15.0 Active Problem Myalgia M79.1 Active 85098256 Problem Cervical disc disorder with radiculopathy of cervical steven on M50.10 Active 976233143 Problem Lumbago with sciatica, left side M54.42 Active 030949301 Problem Lumbago with sciatica, right side M54.41 Active 095765960039445 Problem Cervicalgia M54.2 Active 24465711 ALLERGIES No Known Allergies ENCOUNTERS from 1955 to 2020-10-10 Encounter Location Date Provider Diagnosis [facility] [place] [address] [place] [address] Sep, Hea ther Mauro Cervical disc disorder at C5-C6 level with radiculopathy M50.122 IMMUNIZATIONS Vaccine Route Administration Date Status Influenza [...] Language: Question Answer Notes Languages spoken: Lao Confucianism: Question Answer Notes Confucianism 33 None Sexual Hx: Question Answer Notes [...] Information RESULTS No Results REASON FOR VISIT hydrocodone MEDICAL (GENERAL) HISTORY Type Description Date Medical [...] Treatment Notes Treatm ent Clinical Notes Sep, Cervical disc disorder at C5 -C6 level with radiculopathy (ICD-10 - M50.122) PLAN OF TREATMENT Medication Medication Name Sig Start Date Stop Date Hydrocodone-Acetaminophen 7.5-325 MG 1 tablet as neede d Orally every 6 hours as needed for 30 Days Sep, Next Appt Details Provider Name:Lluvia Wade, 2020-09-24 9 02:00:00 PM, [address] [place], [address], Provider Name:Ethan Swenson, 2020-10-28 09 :00:00 AM, [address] [place] [address], [phone], Insurance Providers Payer Name Payer Address Payer Phone Insured Name Patient Relati onship to Insured Coverage Start Date Coverage End Date MEDICARE Part A and B [facility] [id number] [place] [phone] MEJIA PRABHAKAR self
--- OUTSIDE RECORDS SUMMARY | 2020-11-11 06:29 | CCD | Continuity of Care Document ---
Author Author Mejia LUCIANO MD Organization Unknown Address [address] [facility], [address] [place] [address] Phone [phone] Care Team Providers Care Power Hammer Operator Name Role Phone Ethan Swenson M.D. AUTM [phone] Problems Active Problems Provider Date Cervical spondylosis with myelopathy Moises Sim M.D. Ons et: 10/09/2016 Lumbar spondylosis with myelopathy Moises Sim M.D. Onset : 10/09/2016 Lesion of ulnar nerve Moises Sim M.D. Onset: 10/09/2016 Carpal tunnel syndrome Moises Sim M.D. Onset: 10/09/2016 Solitary sacroiliitis Moises Sim M.D. Onset: 10/09/2016 Disorder of lipid metabolism Moises Sim M.D. Onset: 09/23 Chronic pain syndrome Moises Sim M.D. Onset: 10/09/2016 Idiopathic progressive polyneuropathy Moises Sim M.D. On set: 10/09/2016 Essential hypertension Sandra Luciano MD Onset: 1 Social History Type Date Description Comments Sex Unknown Smokeless Tobacco Never Used Smokeless Tobacco ETOH Use Denies alcohol use Tobacco Use Start: Unknown Patient is a current smoker, smo kes every day 1 PPD X40 YRS Recreational Drug Use Denies Drug Use Allergies, Adverse Reactions, Alerts Description No Known Drug Allergies Medications Active Medications SIG Qnty Indications Ordering Provide r Date Chlorthalidone 25mg Tablets Take One Tablet By Mouth Daily Unknown Eliquis 5mg Tablets Take Two Tablets By Mouth Twice A Day For 7 Days Then 1 Two Times A Day Unknown SM Aspirin Adult Low Strength 81mg Tablets DR 1 Tablet By Mouth Daily For Pain Unknown Humira Pen CF 40mg/0.4ML PNKT Inject 1 as Directed Every Other Week Unknown Hydrocodone-Acetaminophen 7.5-325mg Tablets Take One Tablet By Mouth Every 6 Hours a s Needed. Maximum Daily Dose 4 Tablets Unknown Immunizations Description No Information Available Vital Signs Date Vital Result Comment 09/29/2020 2:04pm BP Systolic 130 mmHg BP Diastolic 70 mmHg Height 69 inches 5'9" Weight 169.38 lb BMI (Body Mass Index) 25.0 kg/m2 [place] Body Weight 160 lb Weight 76.829 kg BSA (Body Surface Area) 1.93 m2 04/09/2017 3:52pm BP Systolic 129 mmHg BP Diastolic 78 mmHg Heart Rate 66 /min Height 69 inches 5'9" Weight 175.00 lb BMI (Body Mass Index) 25.8 kg/m2 [place] Body Weight 160 lb Weight 79.380 kg BSA (Body Surface Area) 1.95 m2 Results Description No Information Available Procedures Description No Information Available Medical Devices Description No Information Available Encounters Description No Information Available Assessments Description No Information Available Plan of Treatment No Information Available Functional Status Description No Information Available Mental Status Description No Information Available Referrals Refer to Reason for Referral Status Appt Date Dakota Roberts D.O. LEFT INGUINAL HERNIA Scheduled [address] [address] [phone]
--- OUTSIDE RECORDS SUMMARY | 2020-11-11 06:29 | CCD ---
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 or radiculopathy M47.817 Active 90935183 Problem Cervical disc disorder at C5-C6 level with radiculopathy M50.122 Active 76106331 I advised Mejia to use the T ENS unit as much as he possibly can, and we discussed ways that he could enlist some help to apply the sensors to his neck Problem 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.812 Active 364393304 Problem 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.816 Active 74001349 Problem Hypercholesterolemia E78.00 Active 58452312 Problem Tobacco use disorder F17.200 Active 466384038 Problem Essential hypertension I10 Active 21854295 Problem Psoriasis L40.9 Active 6905616 Problem Cervical disc disorder with radiculopathy M50.10 Active 278933162 Problem Psoriatic arthritis L40.50 Active 535416993 Problem Myalgia, other site M79.18 Active 71868165 Problem Other chronic pain G89.29 Active 64798440 Problem Facet arthropathy, cervical M47.812 Active 4275 02360 Problem Arthropathy M12.9 Active 228308235 Problem Post concussion syndrome F07.81 Active 1197440 4 I encouraged him to do the actual home exercise program he was given for his balance, and to keep the appointment with the neurologist Problem Primary osteoarthritis involving multiple joints M 15.0 Active Problem Myalgia M79.1 Active 15113719 Problem Cervical disc disorder with radiculopathy of cervical steven on M50.10 Active 280349516 Problem Lumbago with sciatica, left side M54.42 Active 115867093 Problem Lumbago with sciatica, right side M54.41 Active 759998924019333 Problem Cervicalgia M54.2 Active 27449822 ALLERGIES No Known Allergies ENCOUNTERS from 1955 to 2020-10-10 Encounter Location Date Provider Diagnosis [facility] [place] [address] [address] [place] [address] Sep, Hea ther Mauro IMMUNIZATIONS Vaccine Route Administration Date Status Influenza [...] Education Language: Question Answer Notes Languages spoken: Cypriot Yazidism: Question Answer Notes Yazidism 33 None Sexual Hx: Question Answer Notes [...] Information RESULTS No Results REASON FOR VISIT appointment MEDICAL (GENERAL) HISTORY Type Description Date Medical [...] Name:Lluvia Wade, 2020-09-24 9 02:00:00 PM, [address] [place], [address], Provider Name:Ethan Swenson, 2020-10-28 09 :00:00 AM, [address] [place] [address], [phone], Insurance Providers Payer Name Payer Address Payer Phone Insured Name Patient Relati onship to Insured Coverage Start Date Coverage End Date MEDICARE Part A and B [address] [facility] [phone] MEJIA PRABHAKAR self
--- OUTSIDE RECORDS SUMMARY | 2020-11-11 06:29 | CCD ---
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 or radiculopathy M47.817 Active 72275270 Problem Cervical disc disorder at C5-C6 level with radiculopathy M50.122 Active 00426768 I advised Mejia to use the T ENS unit as much as he possibly can, and we discussed ways that he could enlist some help to apply the sensors to his neck Problem 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.812 Active 242351866 Problem 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.816 Active 34835146 Problem Hypercholesterolemia E78.00 Active 53222294 Problem Tobacco use disorder F17.200 Active 873877422 Problem Essential hypertension I10 Active 08651103 Problem Psoriasis L40.9 Active 5033495 Problem Cervical disc disorder with radiculopathy M50.10 Active 670111545 Problem Psoriatic arthritis L40.50 Active 941835503 Problem Myalgia, other site M79.18 Active 44449738 Problem Other chronic pain G89.29 Active 60055234 Problem Facet arthropathy, cervical M47.812 Active 4275 00490 Problem Arthropathy M12.9 Active 379966935 Problem Post concussion syndrome F07.81 Active 0436269 4 I encouraged him to do the actual home exercise program he was given for his balance, and to keep the appointment with the neurologist Problem Primary osteoarthritis involving multiple joints M 15.0 Active Problem Myalgia M79.1 Active 84390086 Problem Cervical disc disorder with radiculopathy of cervical steven on M50.10 Active 806115058 Problem Lumbago with sciatica, left side M54.42 Active 125047801 Problem Lumbago with sciatica, right side M54.41 Active 745224075467921 Problem Cervicalgia M54.2 Active 83808105 ALLERGIES No Known Allergies ENCOUNTERS from 1955 to 2020-10-14 Encounter Location Date Provider Diagnosis [facility] Rheumatology [address] [place] [address] Sep, Yeny Atwood IMMUNIZATIONS Vaccine Route Administration Date Status Influenza [...] Language: Question Answer Notes Languages spoken: Armenian Mu-Ism: Question Answer Notes Mu-Ism 33 None Sexual Hx: Question Answer Notes [...] Information RESULTS No Results REASON FOR VISIT Humira Questions/concerns MEDICAL (GENERAL) HISTORY Type Description Date Medical [...] Name:Lluvia Wade, 2020-09-24 9 02:00:00 PM, [address] [place], [address], Provider Name:Ethan Swenson, 2020-10-28 09 :00:00 AM, [address] [place] [address], [phone], Insurance Providers Payer Name Payer Address Payer Phone Insured Name Patient Relati onship to Insured Coverage Start Date Coverage End Date MEDICARE Part A and B [address] [facility] [id number] MEJIA PRABHAKAR self
--- OUTSIDE RECORDS SUMMARY | 2020-11-11 06:30 | CCD ---
Author Author [facility] Organization [facility] Address Unknown Phone Unavailable Care Team Providers Care Content Analyst Name Role Phone Temo Sheriff MD Unavailable Unavailable Temo Sheriff MD Unavailable Unavailable Temo Sheriff MD Unavailable Unavailable Temo Sheriff MD Unavailable Unavailable Temo Sheriff MD Unavailable Unavailable Temo Sheriff MD Unavailable Unavailable Temo Sheriff MD Unavailable Unavailable Temo Sheriff MD Unavailable Unavailable Temo Sheriff MD Unavailable Unavailable Temo Sheriff MD Unavailable Unavailable Temo Sheriff MD Unavailable Unavailable Temo Sheriff MD Unavailable Unavailable Temo Sheriff MD Unavailable Unavailable Temo Sheriff MD Unavailable Unavailable Temo Sheriff MD Unavailable Unavailable Temo Sheriff MD Unavailable Unavailable Temo Sheriff MD Unavailable Unavailable Temo Sheriff MD Unavailable Unavailable Temo Sheriff MD Unavailable Unavailable Temo Sheriff MD Unavailable Unavailable Temo Sheriff MD Unavailable Unavailable Temo Sheriff MD Unavailable Unavailable Temo Sheriff MD Unavailable Unavailable Temo Sheriff MD Unavailable Unavailable Temo Sheriff MD Unavailable Unavailable Temo Sheriff MD Unavailable Unavailable Temo Sheriff MD Unavailable Unavailable Temo Sheriff MD Unavailable Unavailable Temo Sheriff MD Unavailable Unavailable Temo Sheriff MD Unavailable Unavailable Temo Sheriff MD Unavailable Unavailable Temo Sheriff MD Unavailable Unavailable Temo Sheriff MD Unavailable Unavailable Temo Sheriff MD Unavailable Unavailable Temo Sheriff MD Unavailable Unavailable Temo Sheriff MD Unavailable Unavailable Temo Sheriff MD Unavailable Unavailable Temo Sheriff MD Unavailable Unavailable Temo Sheriff MD Unavailable Unavailable Temo Sheriff MD Unavailable Unavailable Temo Sheriff MD Unavailable Unavailable Temo Sheriff MD Unavailable Unavailable Temo Sheriff MD Unavailable Unavailable Temo Sheriff MD Unavailable Unavailable Temo Sheriff MD Unavailable Unavailable Temo Sheriff MD Unavailable Unavailable Temo Sheriff MD Unavailable Unavailable Temo Sheriff MD Unavailable Unavailable Temo Sheriff MD Unavailable Unavailable Temo Sheriff MD Unavailable Unavailable Temo Sheriff MD Unavailable Unavailable Temo Sheriff MD Unavailable Unavailable Temo Sheriff MD Unavailable Unavailable Temo Sheriff MD Unavailable Unavailable Temo Sheriff MD Unavailable Unavailable Temo Sheriff MD Unavailable Unavailable Temo Sheriff MD Unavailable Unavailable Slezka, Temo HUNT Unavailable Unavailable Malek, Gumaro Hamza MD Unavailable [phone] Malek, T Hamza MD Unavailable [phone] Malek, T Hamza MD Unavailable [phone] Malek, T Hamza MD Unavailable [phone] Malek, T Hamza MD Unavailable [phone] Malek, T Hamza MD Unavailable [phone] Malek, T Hamza MD Unavailable [phone] Malek, T Hamza MD Unavailable [phone] Malek, T Hamza MD Unavailable [phone] Malek, T Hamza MD Unavailable [phone] Malek, T Hamza MD Unavailable [phone] Malek, T Hamza MD Unavailable [phone] Malek, T Hamza MD Unavailable [phone] Dille, Kala Carmen DDS Unavailable Unavailable Dille, Kala Morales DDS Unavailable Unavailable Dille, Kala Morales DDS Unavailable Unavailable Dille, Kala Morales DDS Unavailable Unavailable RING, K SHIV PA Unavailable Unavailable RING, K SHIV PA Unavailable Unavailable RING, K SHIV PA Unavailable Unavailable RING, K SHIV PA Unavailable Unavailable RING, K SHIV PA Unavailable Unavailable RING, K SHIV PA Unavailable Unavailable RING, K SHIV PA Unavailable Unavailable RING, K SHIV PA Unavailable Unavailable RING, K SHIV PA Unavailable Unavailable RING, K SHIV PA Unavailable Unavailable RING, K SHIV PA Unavailable Unavailable RING, K SHIV PA Unavailable Unavailable RING, K SHIV PA Unavailable Unavailable RING, K SHIV PA Unavailable Unavailable RING, K SHIV PA Unavailable Unavailable RING, K SHIV PA Unavailable Unavailable RING, K SHIV PA Unavailable Unavailable RING, K SHIV PA Unavailable Unavailable RING, K SHIV PA Unavailable Unavailable RING, K SHIV PA Unavailable Unavailable RING, K SHIV PA Unavailable Unavailable LETTIERE, A TYRESE PA Unavailable Unavailable LETTIERE, A TYRESE PA Unavailable Unavailable LETTIERE, A TYRESE PA Unavailable Unavailable LETTIERE, A TYRESE PA Unavailable Unavailable LETTIERE, A TYRESE PA Unavailable Unavailable LETTIERE, A TYRESE PA Unavailable Unavailable LETTIERE, A TYRESE PA Unavailable Unavailable LETTIERE, A TYRESE PA Unavailable Unavailable LETTIERE, A TYRESE PA Unavailable Unavailable LETTIERE, A TYRESE PA Unavailable Unavailable LETTIERE, A TYRESE PA Unavailable Unavailable LETTIERE, A TYRESE PA Unavailable Unavailable LETTIERE, A TYRESE PA Unavailable Unavailable LETTIERE, A TYRESE PA Unavailable Unavailable LETTIERE, A TYRESE PA Unavailable Unavailable LETTIERE, A TYRESE PA Unavailable Unavailable LETTIERE, A TYRESE PA Unavailable Unavailable LETTIERE, A TYRESE PA Unavailable Unavailable LETTIERE, A TYRESE PA Unavailable Unavailable LETTIERE, A TYRESE PA Unavailable Unavailable LETTIERE, A TYRESE PA Unavailable Unavailable LETTIERE, A TYRESE PA Unavailable Unavailable LETTIERE, A TYRESE PA Unavailable Unavailable LETTIERE, A TYRESE PA Unavailable Unavailable LETTIERE, A TYRESE PA Unavailable Unavailable LETTIERE, A TYRESE PA Unavailable Unavailable LETTIERE, A TYRESE PA Unavailable Unavailable LETTIERE, A TYRESE PA Unavailable Unavailable LETTIERE, A TYRESE PA Unavailable Unavailable Re-disclosure Warning The records that you are about to access may contain information from federally-assisted alcohol or drug abuse programs. If such information is present, then the following federally mandated warning applies: This information has been disclosed to you from records protected by federal confidentiality rules (42 CFR part 2). The federal rules prohibit you from making any further disclosure of this information unless further disclosure is expressly permitted by the written consent of the person to whom it pertains or as otherwise permitted by 42 CFR part 2. A general authorization for the release of medical or other information is NOT sufficient for this purpose. The Federal rules restrict any use of the information to criminally investigate or prosecute any alcohol or drug abuse patient.The records that you are about to access may contain highly sensitive health information, the redisclosure of which is protected by Article 27-F of the [facility] Public Health law. If you continue you may have access to information: Regarding HIV / AIDS; Provided by facilities licensed or operated by the [facility] Office of Mental Health; or Provided by the [facility] Office for People With Developmental Disabilities. If such information is present, then the following [facility] mandated warning applies: This information has been disclosed to you from confidential records which are protected by state law. State law prohibits you from making any further disclosure of this information without the specific written consent of the person to whom it pertains, or as otherwise permitted by law. Any unauthorized further disclosure in violation of state law may result in a fine or long term sentence or both. A general authorization for the release of medical or other information is NOT sufficient authorization for further disc losure. Family History Family Member Name Family Member Gender Family Member Status Date o f Status Description Data Source(s) Unknown Female Problem MEDENT ([facility]) Unknown Unknown Problem MEDENT ([facility], ) Unknown Unknown Encounters Encounter Providers Location Date Indications Data Source(s ) Outpatient Attender: SHIV Lam Primary 11/10/2020 07:45:00 AM EST [facility] ([facility]) Outpatient Attender: SHIV Lam Primary 11/09/2020 03:00:00 PM EST [facility] ([facility]) Unknown [address] [facility] [address] 11/08/2020 12:00:00 AM EST [facility]1 ([facility]) Unknown [address] [facility] [address] 11/07/2020 12:00:00 AM EST eCW1 ([facility]) Unknown [address] [facility] [address] 11/07/2020 12:00:00 AM EST eCW1 ([facility]) Outpatient Attender: Temo Sheriff MDReferrer: Ghanshyam [email or web address] 11/02/2020 10:59:01 AM EST - 11/02/2020 12:08:49 PM EST [facility] Outpatient Attender: Temo NICOLE 05/2021 12:00:00 AM EST - 11/01/2020 10:02:41 AM EST [facility] Unknown [address] [facility] [address] 10/31/2020 12:00:00 AM EST eCW1 ([facility]) Outpatient [address] [facility] [address] 10/28/2020 12:00:00 AM EST eCW1 ([facility]) Outpatient [address] [facility] [address] 10/21/2020 12:00:00 AM EST eCW1 ([facility]) Unknown [address] [facility] [place] [address] 10/12/2020 12:00:00 AM EST eCW1 ([facility]) Unknown [address] [facility] [place] [address] 10/11/2020 12:00:00 AM EST eCW1 ([facility]) Unknown [address] [facility] [place] [address] 10/10/2020 12:00:00 AM EST eCW1 ([facility]) Unknown [address] [facility] [place] [address] 10/10/2020 12:00:00 AM EST [facility]CW1 [facility]) Unknown [address] [facility] [place] [address] 09/22/2020 12:00:00 AM EST [facility] Outpatient Attender: TYRESE dowell 09/21/2020 08:40:00 AM EST MEDENT ([facility]) Outpatient [address] [facility], [place] [address] 09/13/2020 12:00:00 AM EST eCW1 ([facility]) Unknown [address] [facility] [place] [address] 09/12/2020 12:00:00 AM EST eCW1 ([facility]) Unknown [address] [facility] [place] [address] 09/01/2020 12:00:00 AM EST eCW1 ([facility]) Outpatient Attender: Terrie Brown MD CPSCAORT-CPSCANEU 08/09 12:49:00 PM EST - 08/09/2020 12:50:[address] [facility] Patient discharged. Outpatient Attender: Carmen GUERRERO 07/29/2020 04:06:01 P M [facility] Outpatient Attender: Carmen Jakobmarli ANGELICA GUERRERO 07/29/2020 03:29:01 P M [facility] Outpatient Attender: Carmen Jakobmarli ANGELICA GUERRERO 07/27/2020 10:49:00 A M [facility] Outpatient Attender: Carmen Jakobmarli ANGELICA GUERRERO 07/27/2020 08:05:59 A M [facility] Outpatient [address] [facility] [address] 07/22/2020 12:00:00 AM EDT [facility]CW1 ([facility]) Unknown [address] [facility] [address] 07/12/2020 12:00:00 AM EDT eCW1 ([facility]) Office Visit, Est Pt., Level 4 PC [address] [place] [address] 07/12/2020 12:00:00 AM EDT eCW1 ([facility]) Outpatient Attender: Carmen Cristin GUERRERO 06/23/2020 08:58:01 A M EDT [facility] [address] [facility] [address] 06/23/2020 12:00:00 AM EDT eCW1 ([facility]) Unknown [address] [facility] [address] 06/22/2020 12:00:00 AM EDT eCW1 ([facility]) Outpatient Attender: Carmen GUERRERO 06/14/2020 [facility]: [facility] GU[facility] 06/14/2020 03:27:00 P M EDT [facility] [address] [facility] [address] 04/27/2020 12:00:00 AM EDT eCW1 ([facility]) Unknown [address] [facility] [address] 03/10/2020 12:00:00 AM EDT eCW1 ([facility]) Outpatient Attender: Carmen GUERRERO 03/04/2020 12:57:00 P M EDT [facility] Outpatient Attender: Carmen Cristin HERNANDEZ 03/04/2020 12:56:01 P M EDT [facility] Unknown [address] [facility] [address] 02/26/2020 12:00:00 AM EDT eCW1 ([facility]) Unknown [address] [facility], [place] [address] 02/25/2020 12:00:00 AM EDT eCW1 ([facility]) [facility] [address] [facility], [facility] [address] 02/17/2020 12:00:00 AM EDT eCW1 ([facility]) [facility] [address] [place] [address] 01/27/2020 12:00:00 AM EDT eCW1 ([facility]) [facility] [address] [facility] [address] 01/11/2020 12:00:00 AM EDT eCW1 ([facility]) Outpatient Attender: Carmen GUERRERO 01/08/2020 11:36:01 A M EDT [facility] Outpatient Attender: Camren HERNANDEZ 01/08/2020 11:35:00 A M EDT [facility] Outpatient Attender: Carmen GUERRERO 01/08/2020 11:04:00 A M EDT [facility] Outpatient Attender: Carmen GUERRERO 01/08/2020 08:18:00 A M EDT [facility] [address] [facility] [address] 01/05/2020 12:00:00 AM EDT eCW1 ([facility]) [facility] [address] [place] [address] 01/04/2020 12:00:00 AM EDT eCW1 ([facility]) [facility] Kirstie [address] [facility], [facility] [address] 01/04/2020 12:00:00 AM EDT eCW1 ([facility]) [facility] Chirag [address] [facility], [facility] [address] 12/22/2019 12:00:00 AM EDT eCW1 ([facility]) Outpatient Attender: Carmen GUERRERO 12/21/2019 09:01:05 P M EDT [facility] Outpatient Attender: Carmen GUERRERO 12/21/2019 04:03:00 P M EDT [facility] Outpatient Attender: Carmen GUERRERO 12/21/2019 03:59:00 P M EDT [facility] Outpatient Attender: Carmen GUERRERO 12/21/2019 03:58:00 P M EDT [facility] [place] [address] [place] [address], [place] [address] 12/15/2019 12:00:00 AM EDT eCW1 ([facility]) [facility] [address] [place] [address] 12/01/2019 12:00:00 AM EDT eCW1 ([facility]) Outpatient Attender: Carmen GUERRERO 11/27/2019 09:01:02 P [facility] Outpatient Attender: Carmen GUERRERO 11/27/2019 11:18:01 A [facility] Outpatient Attender: Carmen GUERRERO 11/27/2019 11:17:01 A [facility] Outpatient Attender: Carmen GUERRERO 11/27/2019 11:16:01 A [facility] Outpatient Attender: Carmen GUERRERO 11/25/2019 10:09:01 A [facility] Outpatient Attender: Carmen GUERRERO 11/18/2019 10:21:01 [facility] [address] [place] [address] 11/04/2019 12:00:00 AM EST eCW1 ([facility]) [facility] [address] [place] [address] 11/02/2019 12:00:00 AM EST eCW1 ([facility]) [facility] [place] [address] [place] [address] 10/29/2019 12:00:00 AM EST eCW1 ([facility]) [facility] [address] [place] [address] 10/21/2019 12:00:00 AM EST eCW1 ([facility]) [facility] [address] [place] [address] 10/16/2019 12:00:00 AM EST eCW1 ([facility]) [facility] [address] [place] [address] 10/15/2019 12:00:00 AM EST eCW1 ([facility]) [facility] [place] [address] [place] [address] 10/08/2019 12:00:00 AM EST eCW1 ([facility]) [facility] [place] [address] [place] [address] 10/07/2019 12:00:00 AM EST eCW1 ([facility]) Outpatient Attender: Carmen GUERRERO 10/06/2019 09:01:06 P [facility] [address] [place] [address] 10/05/2019 12:00:00 AM EST eCW1 ([facility]) [facility] [address] [place] [address] 09/25/2019 12:00:00 AM EST eCW1 ([facility]) [facility] [address] [place] [address] 09/25/2019 12:00:00 AM EST eCW1 ([facility]) Outpatient Attender: Carmen GUERRERO 09/17/2019 09:55:00 A M EST [facility] [place] [address] [facility], [place] [address] 09/15/2019 12:00:00 AM EST eCW1 ([facility]) Medications Medication Brand Name Start Date Product Form Dose Route Admi nistrative Instructions Pharmacy Instructions Status Indications Reaction Description Data Source(s) 25 mg 10/22/2020 12:00:00 AM EST tablet 30 TAKE ONE TABLET BY MOUTH EVERY DAY TAKE ONE TABLET BY MOUTH EVERY DAY SOLD: 10/22/2020 [facility] Therapy evaluate and treat UNK 10/21/2020 12:00:00 AM EST active Physical Therapy evaluate and tr eat eCW1 ([facility]) Sertraline 25 MG Oral Tablet Sertraline HCl 25 MG Sertraline HCl 25 MG 10/21/2020 12:00:00 AM EST 1.0 {tablet} suspende d Sertraline HCl 25 MG eCW1 ([facility]) 5 mg 10/21/2020 12:00:00 AM EST tablet 60 TAKE ONE TABLET BY MOUTH TWICE A DAY MAXIMUM DAILY DOSE = 2 TABLETS TAKE ONE TABLET BY MOUTH TWICE A DAY MAX IMUM DAILY DOSE = 2 TABLETS SOLD: 10/22/2020 [facility] evaluate and treat UNK 10/21/2020 12:00:00 AM EST active Physical Therapy evaluate and tr eat eCW1 ([facility]) Sertraline 25 MG Oral Tablet Sertraline HCl 25 MG Sertraline HCl 25 MG 10/21/2020 12:00:00 AM EST 1.0 {tablet} suspende d Sertraline HCl 25 MG eCW1 ([facility]) Sertraline 25 MG Oral Tablet Sertraline HCl 25 MG Sertraline HCl 25 MG 10/21/2020 12:00:00 AM EST 1.0 {tablet} suspende d Sertraline HCl 25 MG eCW1 ([facility]) Physical Therapy evaluate and treat UNK 10/21/2020 12:00:00 AM EST active Physical Therapy evaluate and tr eat eCW1 ([facility]) Physical Therapy evaluate and treat UNK 10/21/2020 12:00:00 AM EST active Physical Therapy evaluate and tr eat eCW1 ([facility]) Physical Therapy evaluate and treat UNK 10/21/2020 12:00:00 AM EST active Physical Therapy evaluate and tr eat eCW1 ([facility]) Sertraline 25 MG Oral Tablet Sertraline HCl 25 MG Sertraline HCl 25 MG 10/21/2020 12:00:00 AM EST 1.0 {tablet} suspende d Sertraline HCl 25 MG eCW1 ([facility]) Physical Therapy evaluate and treat UNK 10/21/2020 12:00:00 AM EST active Physical Therapy evaluate and tr eat eCW1 ([facility]) Sertraline 25 MG Oral Tablet Sertraline HCl 25 MG Sertraline HCl 25 MG 10/21/2020 12:00:00 AM EST 1.0 {tablet} suspende d Sertraline HCl 25 MG eCW1 ([facility]) Sertraline 25 MG Oral Tablet Sertraline HCl 25 MG Sertraline HCl 25 MG 10/21/2020 12:00:00 AM EST 1.0 {tablet} suspende d Sertraline HCl 25 MG eCW1 ([facility]) 25 mg 10/16/2020 12:00:00 AM EST tablet 30 TAKE ONE TABLET BY MOUTH EVERY MORNING WITH FOOD TAKE ONE TABLET BY MOUTH EVERY MORNING WITH FOOD SOLD: 10/21/2020 [facility] 7.5-325 mg 10/12/2020 12:00:00 AM EST tablet 120 TAKE ONE TABLET BY MOUTH EVERY 6 HOURS NEEDED MAXIMUM DAILY DOSE = 4 TABLETS TAKE ONE TABLET BY MOUTH EVERY 6 HOURS NEEDED MAXIMUM DAILY DOSE = 4 TABLETS SOLD: 10/14/2020 [facility] Chlorthalidone 25 MG Oral Tablet Chlorthalidone 25 MG 2020 12:00:00 AM EST 1.0 {tablet_in_the_morning_with_food} active Chlorthalidone 25 MG eCW1 ([facility]) Chlorthalidone 25 MG Oral Tablet Chlorthalidone 25 MG 2020 12:00:00 AM EST 1.0 {tablet_in_the_morning_with_food} active Chlorthalidone 25 MG eCW1 ([facility]) Chlorthalidone 25 MG Oral Tablet Chlorthalidone 25 MG 2020 12:00:00 AM EST 1.0 {tablet_in_the_morning_with_food} active Chlorthalidone 25 MG eCW1 ([facility]) Chlorthalidone 25 MG Oral Tablet Chlorthalidone 25 MG 2020 12:00:00 AM EST 1.0 {tablet_in_the_morning_with_food} active Chlorthalidone 25 MG eCW1 ([facility]) Chlorthalidone 25 MG Oral Tablet Chlorthalidone 25 MG 2020 12:00:00 AM EST 1.0 {tablet_in_the_morning_with_food} active Chlorthalidone 25 MG eCW1 ([facility]) Chlorthalidone 25 MG Oral Tablet Chlorthalidone 25 MG 2020 12:00:00 AM EST 1.0 {tablet_in_the_morning_with_food} active Chlorthalidone 25 MG eCW1 ([facility]) Chlorthalidone 25 MG Oral Tablet Chlorthalidone 25 MG 2020 12:00:00 AM EST 1.0 {tablet_in_the_morning_with_food} active Chlorthalidone 25 MG eCW1 ([facility]) Chlorthalidone 25 MG Oral Tablet Chlorthalidone 25 MG 2020 12:00:00 AM EST 1.0 {tablet_in_the_morning_with_food} active Chlorthalidone 25 MG eCW1 ([facility]) Acetaminophen 325 MG / Hydrocodone Steffi trate 7.5 MG Oral Tablet Hydrocodone- Acetaminophen 7.5-325 MG Hydrocodone-Acetaminophen 7.5-325 MG 10/10/2020 12:00:00 AM EST 1.0 {tablet_as_needed} active Hydrocodone- Acetaminophen 7.5-325 MG eCW1 ([facility]) Acetaminophen 325 MG / Hydrocodone Steffi trate 7.5 MG Oral Tablet Hydrocodone- Acetaminophen 7.5-325 MG Hydrocodone-Acetaminophen 7.5-325 MG 10/10/2020 12:00:00 AM EST 1.0 {tablet_as_needed} active Hydrocodone- Acetaminophen 7.5-325 MG eCW1 ([facility]) Acetaminophen 325 MG / Hydrocodone Steffi trate 7.5 MG Oral Tablet Hydrocodone- Acetaminophen 7.5-325 MG Hydrocodone-Acetaminophen 7.5-325 MG 10/10/2020 12:00:00 AM EST 1.0 {tablet_as_needed} active Hydrocodone- Acetaminophen 7.5-325 MG eCW1 ([facility]) Acetaminophen 325 MG / Hydrocodone Steffi trate 7.5 MG Oral Tablet Hydrocodone- Acetaminophen 7.5-325 MG Hydrocodone-Acetaminophen 7.5-325 MG 10/10/2020 12:00:00 AM EST 1.0 {tablet_as_needed} active Hydrocodone- Acetaminophen 7.5-325 MG eCW1 ([facility]) Acetaminophen 325 MG / Hydrocodone Steffi trate 7.5 MG Oral Tablet Hydrocodone- Acetaminophen 7.5-325 MG Hydrocodone-Acetaminophen 7.5-325 MG 10/10/2020 12:00:00 AM EST 1.0 {tablet_as_needed} active Hydrocodone- Acetaminophen 7.5-325 MG eCW1 ([facility]) Acetaminophen 325 MG / Hydrocodone Steffi trate 7.5 MG Oral Tablet Hydrocodone- Acetaminophen 7.5-325 MG Hydrocodone-Acetaminophen 7.5-325 MG 10/10/2020 12:00:00 AM EST 1.0 {tablet_as_needed} active Hydrocodone- Acetaminophen 7.5-325 MG eCW1 ([facility]) Acetaminophen 325 MG / Hydrocodone Steffi trate 7.5 MG Oral Tablet Hydrocodone- Acetaminophen 7.5-325 MG Hydrocodone-Acetaminophen 7.5-325 MG 10/10/2020 12:00:00 AM EST 1.0 {tablet_as_needed} active Hydrocodone- Acetaminophen 7.5-325 MG eCW1 ([facility]) Acetaminophen 325 MG / Hydrocodone Steffi trate 7.5 MG Oral Tablet Hydrocodone- Acetaminophen 7.5-325 MG Hydrocodone-Acetaminophen 7.5-325 MG 10/10/2020 12:00:00 AM EST 1.0 {tablet_as_needed} active Hydrocodone- Acetaminophen 7.5-325 MG eCW1 ([facility]) Acetaminophen 325 MG / Hydrocodone Steffi trate 7.5 MG Oral Tablet Hydrocodone- Acetaminophen 7.5-325 MG Hydrocodone-Acetaminophen 7.5-325 MG 10/10/2020 12:00:00 AM EST 1.0 {tablet_as_needed} active Hydrocodone- Acetaminophen 7.5-325 MG eCW1 ([facility]) Acetaminophen 325 MG / Hydrocodone Steffi trate 7.5 MG Oral Tablet Hydrocodone- Acetaminophen 7.5-325 MG Hydrocodone-Acetaminophen 7.5-325 MG 10/10/2020 12:00:00 AM EST 1.0 {tablet_as_needed} active Hydrocodone- Acetaminophen 7.5-325 MG eCW1 ([facility]) 81 mg 09/26/2020 12:00:00 AM EST tablet,delayed release (DR/EC) 30 1 TABLET BY MOUTH DAILY FOR PAIN 1 TABLET BY MOUTH DAILY FOR PAIN SOLD: 09/26/2020 [facility] 5 mg 09/23/2020 12:00:00 AM EST tablet 74 TAKE TWO TABLETS BY MOUTH TWICE A DAY FOR 7 DAYS THEN 1 TWO TIMES A DAY TAKE TWO TABLETS BY MOUTH TWICE A DAY FO R 7 DAYS THEN 1 TWO TIMES A DAY SOLD: 09/26/2020 [facility] 25 mg 09/23/2020 12:00:00 AM EST tablet 30 TAKE ONE TABLET BY MOUTH DAILY TAKE ONE TABLET BY MOUTH DAILY SOLD: 09/26/2020 [facility] No Active Medications 09/21/2020 12:00:00 AM EST completed MEDENT ([facility], [facility]) 7.5-325 mg 09/02/2020 12:00:00 AM EST tablet 120 TAKE ONE TABLET BY MOUTH EVERY 6 HOURS NEEDED. MAXIMUM DAILY DOSE = 4 TABLETS TAKE ONE TABLET BY MOUTH EVERY 6 HOURS NEEDED. MAXIMUM DAILY DOSE = 4 TABLETS SOLD: 09/05/2020 [facility] Acetaminophen 325 MG / Hydrocodone Steffi trate 7.5 MG Oral Tablet Hydrocodone- Acetaminophen 7.5-325 MG Hydrocodone-Acetaminophen 7.5-325 MG 09/01/2020 12:00:00 AM EST 1.0 {tablet_as_needed} active Hydrocodone- Acetaminophen 7.5-325 MG eCW1 ([facility]) Acetaminophen 325 MG / Hydrocodone Steffi trate 7.5 MG Oral Tablet Hydrocodone- Acetaminophen 7.5-325 MG Hydrocodone-Acetaminophen 7.5-325 MG 09/01/2020 12:00:00 AM EST 1.0 {tablet_as_needed} active Hydrocodone- Acetaminophen 7.5-325 MG eCW1 ([facility]) Acetaminophen 325 MG / Hydrocodone Steffi trate 7.5 MG Oral Tablet Hydrocodone- Acetaminophen 7.5-325 MG Hydrocodone-Acetaminophen 7.5-325 MG 09/01/2020 12:00:00 AM EST 1.0 {tablet_as_needed} active Hydrocodone- Acetaminophen 7.5-325 MG eCW1 ([facility]) Acetaminophen 325 MG / Hydrocodone Steffi trate 7.5 MG Oral Tablet Hydrocodone- Acetaminophen 7.5-325 MG Hydrocodone-Acetaminophen 7.5-325 MG 09/01/2020 12:00:00 AM EST 1.0 {tablet_as_needed} active Hydrocodone- Acetaminophen 7.5-325 MG eCW1 ([facility]) 100 mg 08/25/2020 12:00:00 AM EST tablet 120 TAKE TWO TABLETS BY MOUTH TWICE A DAY TAKE TWO TABLETS BY MOUTH TWICE A DAY SOLD: 08/26/2020 [facility] 7.5-325 mg 07/25/2020 12:00:00 AM EST tablet 120 TAKE ONE TABLET BY MOUTH EVERY 6 HOURS NEEDED MAXIMUM DAILY DOSE = 4 TAKE ONE TABLET BY MOUTH EVERY 6 HOURS NEEDED MAXIMUM DAILY DOSE = 4 SOLD: 08/03/2020 [facility] Acetaminophen 325 MG / Hydrocodone Steffi trate 7.5 MG Oral Tablet Hydrocodone- Acetaminophen 7.5-325 MG Hydrocodone-Acetaminophen 7.5-325 MG 07/22/2020 12:00:00 AM EDT 1.0 {tablet_as_needed} active Hydrocodone- Acetaminophen 7.5-325 MG eCW1 ([facility]) Acetaminophen 325 MG / Hydrocodone Steffi trate 7.5 MG Oral Tablet Hydrocodone- Acetaminophen 7.5-325 MG Hydrocodone-Acetaminophen 7.5-325 MG 07/22/2020 12:00:00 AM EDT 1.0 {tablet_as_needed} active Hydrocodone- Acetaminophen 7.5-325 MG eCW1 ([facility]) Humira Pen 40 MG/0.4ML Humira Pen 40 MG/0.4ML 07/12/2020 12:00:00 AM E DT suspended Humira Pen 40 MG/0.4ML eC W1 ([facility]) Humira Pen 40 MG/0.4ML Humira Pen 40 MG/0.4ML 07/12/2020 12:00:00 AM E DT suspended Humira Pen 40 MG/0.4ML eC W1 ([facility]) Humira Pen 40 MG/0.4ML Humira Pen 40 MG/0.4ML 07/12/2020 12:00:00 AM E DT active Humira Pen 40 MG/0.4ML eC W1 ([facility]) Humira Pen 40 MG/0.4ML Humira Pen 40 MG/0.4ML 07/12/2020 12:00:00 AM E DT suspended Humira Pen 40 MG/0.4ML eC W1 ([facility]) Humira Pen 40 MG/0.4ML Humira Pen 40 MG/0.4ML 07/12/2020 12:00:00 AM E DT suspended Humira Pen 40 MG/0.4ML eC W1 ([facility]) Humira Pen 40 MG/0.4ML Humira Pen 40 MG/0.4ML 07/12/2020 12:00:00 AM E DT active Humira Pen 40 MG/0.4ML eC W1 ([facility]) Humira Pen 40 MG/0.4ML Humira Pen 40 MG/0.4ML 07/12/2020 12:00:00 AM E DT active Humira Pen 40 MG/0.4ML eC W1 ([facility]) Humira Pen 40 MG/0.4ML Humira Pen 40 MG/0.4ML 07/12/2020 12:00:00 AM E DT active Humira Pen 40 MG/0.4ML eC W1 ([facility]) Humira Pen 40 MG/0.4ML Humira Pen 40 MG/0.4ML 07/12/2020 12:00:00 AM E DT active Humira Pen 40 MG/0.4ML eC W1 ([facility]) Humira Pen 40 MG/0.4ML Humira Pen 40 MG/0.4ML 07/12/2020 12:00:00 AM E DT active Humira Pen 40 MG/0.4ML eC W1 ([facility]) Humira Pen 40 MG/0.4ML Humira Pen 40 MG/0.4ML 07/12/2020 12:00:00 AM E DT suspended Humira Pen 40 MG/0.4ML eC W1 ([facility]) Humira Pen 40 MG/0.4ML Humira Pen 40 MG/0.4ML 07/12/2020 12:00:00 AM E DT suspended Humira Pen 40 MG/0.4ML eC W1 ([facility]) Humira Pen 40 MG/0.4ML Humira Pen 40 MG/0.4ML 07/12/2020 12:00:00 AM E DT active Humira Pen 40 MG/0.4ML eC W1 ([facility]) Humira Pen 40 MG/0.4ML Humira Pen 40 MG/0.4ML 07/12/2020 12:00:00 AM E DT active Humira Pen 40 MG/0.4ML eC W1 ([facility]) Humira Pen 40 MG/0.4ML Humira Pen 40 MG/0.4ML 07/12/2020 12:00:00 AM E DT active Humira Pen 40 MG/0.4ML eC W1 ([facility]) Humira Pen 40 MG/0.4ML Humira Pen 40 MG/0.4ML 07/12/2020 12:00:00 AM E DT active Humira Pen 40 MG/0.4ML eC W1 ([facility]) Humira Pen 40 MG/0.4ML Humira Pen 40 MG/0.4ML 07/12/2020 12:00:00 AM E DT active Humira Pen 40 MG/0.4ML eC W1 ([facility]) Acetaminophen 325 MG / Hydrocodone Steffi trate 7.5 MG Oral Tablet Hydrocodone- Acetaminophen 7.5-325 MG Hydrocodone-Acetaminophen 7.5-325 MG 06/23/2020 12:00:00 AM EDT 1.0 {tablet_as_needed} active Hydrocodone- Acetaminophen 7.5-325 MG eCW1 ([facility]) 7.5-325 mg 06/23/2020 12:00:00 AM EDT tablet 120 TAKE ONE TABLET BY MOUTH EVERY 6 HOURS NEEDED MAXIMUM DAILY DOSE = 4 TAKE ONE TABLET BY MOUTH EVERY 6 HOURS NEEDED MAXIMUM DAILY DOSE = 4 SOLD: 06/27/2020 [facility] Acetaminophen 325 MG / Hydrocodone Steffi trate 7.5 MG Oral Tablet Hydrocodone- Acetaminophen 7.5-325 MG Hydrocodone-Acetaminophen 7.5-325 MG 06/23/2020 12:00:00 AM EDT 1.0 {tablet_as_needed} active Hydrocodone- Acetaminophen 7.5-325 MG eCW1 ([facility]) 4 mg 06/04/2020 12:00:00 AM EDT tablets,dose pack 21 USE DIRECTED ON PACKAGE USE DIRECTED ON PACKAGE SOLD: 06/05/2020 [facility] 7.5-325 mg 05/14/2020 12:00:00 AM EDT tablet 120 TAKE ONE TABLET BY MOUTH FOUR TIMES A DAY NEEDED FOR PAIN MAXIMUM DAILY DOSE = 4 TAKE ONE TABLET BY MOUTH FOUR TIMES A DAY NEEDED FOR PAIN MAXIMUM DAILY DOSE = 4 SOLD: 05/25/2020 [facility] 7.5-325 mg 03/29/2020 12:00:00 AM EDT tablet 120 TAKE ONE TABLET BY MOUTH EVERY 6 HOURS NEEDED MAXIMUM DAILY DOSE = 4 TABLETS TAKE ONE TABLET BY MOUTH EVERY 6 HOURS NEEDED MAXIMUM DAILY DOSE = 4 TABLETS SOLD: 03/29/2020 [facility] 50 mg 03/24/2020 12:00:00 AM EDT tablet 90 TAKE ONE TABLET BY MOUTH EVERY DAY TAKE ONE TABLET BY MOUTH EVERY DAY SOLD: 07/22/2020 [facility] atorvastatin 40 MG Oral Tablet ATORVASTATIN CALCIUM 03/24/2020 1 2:00:00 AM EDT tablet 90 TAKE ONE TABLET BY MOUTH EVERY D AY TAKE ONE TABLET BY MOUTH EVERY DAY SOLD: 07/22/2020 [facility] 50 mg 03/24/2020 12:00:00 AM EDT tablet 90 TAKE ONE TABLET BY MOUTH EVERY DAY TAKE ONE TABLET BY MOUTH EVERY DAY SOLD: 03/26/2020 [facility] 40 mg 03/24/2020 12:00:00 AM EDT tablet 90 TAKE ONE TABLET BY MOUTH EVERY DAY TAKE ONE TABLET BY MOUTH EVERY DAY SOLD: 03/26/2020 [facility] 7.5-325 mg 01/28/2020 12:00:00 AM EDT tablet 120 TAKE ONE TABLET BY MOUTH EVERY 6 HOURS MAXIMUM DAILY DOSE = FOUR TABLETS TAKE ONE TABLET BY MOUTH EVERY 6 HOURS MAXIMUM DAILY DOSE = FOUR TABLETS SOLD: 02/03/2020 [facility] Acetaminophen 325 MG / Hydrocodone Steffi trate 7.5 MG Oral Tablet Hydrocodone- Acetaminophen 7.5-325 MG Hydrocodone-Acetaminophen 7.5-325 MG 01/27/2020 12:00:00 AM EDT 1.0 {tablet_as_needed} active Hydrocodone- Acetaminophen 7.5-325 MG eCW1 ([facility]) Acetaminophen 325 MG / Hydrocodone Steffi trate 7.5 MG Oral Tablet Hydrocodone- Acetaminophen 7.5-325 MG Hydrocodone-Acetaminophen 7.5-325 MG 01/27/2020 12:00:00 AM EDT active 1 tablet as needed eCW1 ([facility]) Acetaminophen 325 MG / Hydrocodone Steffi trate 7.5 MG Oral Tablet Hydrocodone- Acetaminophen 7.5-325 MG Hydrocodone-Acetaminophen 7.5-325 MG 01/27/2020 12:00:00 AM EDT 1.0 {tablet_as_needed} active Hydrocodone- Acetaminophen 7.5-325 MG eCW1 ([facility]) Acetaminophen 325 MG / Hydrocodone Steffi trate 7.5 MG Oral Tablet Hydrocodone- Acetaminophen 7.5-325 MG Hydrocodone-Acetaminophen 7.5-325 MG 01/27/2020 12:00:00 AM EDT active 1 tablet as needed eCW1 ([facility]) Acetaminophen 325 MG / Hydrocodone Steffi trate 7.5 MG Oral Tablet Hydrocodone- Acetaminophen 7.5-325 MG Hydrocodone-Acetaminophen 7.5-325 MG 01/27/2020 12:00:00 AM EDT 1.0 {tablet_as_needed} active Hydrocodone- Acetaminophen 7.5-325 MG eCW1 ([facility]) 7.5-325 mg 01/06/2020 12:00:00 AM EDT tablet 60 TAKE ONE TABLET BY MOUTH EVERY 6 HOURS MAXIMUM DAILY DOSE = FOUR TABLETS TAKE ONE TABLET BY MOUTH EVERY 6 HOURS MAXIMUM DAILY DOSE = FOUR TABLETS SOLD: 01/06/2020 [facility] Acetaminophen 325 MG / Hydrocodone Steffi trate 7.5 MG Oral Tablet Hydrocodone- Acetaminophen 7.5-325 MG Hydrocodone-Acetaminophen 7.5-325 MG 01/05/2020 12:00:00 AM EDT active 1 tablet as needed eCW1 ([facility]) 40 mg 12/24/2019 12:00:00 AM EDT tablet 90 TAKE ONE TABLET BY MOUTH EVERY DAY TAKE ONE TABLET BY MOUTH EVERY DAY SOLD: 12/24/2019 [facility] atorvastatin 40 MG Oral Tablet Atorvastatin Calcium 40 MG Atorvastatin Calcium 40 MG 12/23/2019 12:00:00 AM EDT 1.0 {tablet} suspe nded Atorvastatin Calcium 40 MG eCW1 ([facility]) atorvastatin 40 MG Oral Tablet Atorvastatin Calcium 40 MG Atorvastatin Calcium 40 MG 12/23/2019 12:00:00 AM EDT 1.0 {tablet} suspe nded Atorvastatin Calcium 40 MG eCW1 ([facility]) atorvastatin 40 MG Oral Tablet Atorvastatin Calcium 40 MG Atorvastatin Calcium 40 MG 12/23/2019 12:00:00 AM EDT 1.0 {tablet} activ e Atorvastatin Calcium 40 MG eCW1 ([facility]) atorvastatin 40 MG Oral Tablet Atorvastatin Calcium 40 MG Atorvastatin Calcium 40 MG 12/23/2019 12:00:00 AM EDT 1.0 {tablet} activ e Atorvastatin Calcium 40 MG eCW1 ([facility]) atorvastatin 40 MG Oral Tablet Atorvastatin Calcium 40 MG Atorvastatin Calcium 40 MG 12/23/2019 12:00:00 AM EDT 1.0 {tablet} activ e Atorvastatin Calcium 40 MG eCW1 ([facility]) atorvastatin 40 MG Oral Tablet Atorvastatin Calcium 40 MG Atorvastatin Calcium 40 MG 12/23/2019 12:00:00 AM EDT 1.0 {tablet} activ e Atorvastatin Calcium 40 MG eCW1 ([facility]) atorvastatin 40 MG Oral Tablet Atorvastatin Calcium 40 MG Atorvastatin Calcium 40 MG 12/23/2019 12:00:00 AM EDT 1.0 {tablet} activ e Atorvastatin Calcium 40 MG eCW1 ([facility]) atorvastatin 40 MG Oral Tablet Atorvastatin Calcium 40 MG Atorvastatin Calcium 40 MG 12/23/2019 12:00:00 AM EDT active 1 tablet eCW1 ([facility]) atorvastatin 40 MG Oral Tablet Atorvastatin Calcium 40 MG Atorvastatin Calcium 40 MG 12/23/2019 12:00:00 AM EDT 1.0 {tablet} suspe nded Atorvastatin Calcium 40 MG eCW1 ([facility]) atorvastatin 40 MG Oral Tablet Atorvastatin Calcium 40 MG Atorvastatin Calcium 40 MG 12/23/2019 12:00:00 AM EDT 1.0 {tablet} suspe nded Atorvastatin Calcium 40 MG eCW1 ([facility]) atorvastatin 40 MG Oral Tablet Atorvastatin Calcium 40 MG Atorvastatin Calcium 40 MG 12/23/2019 12:00:00 AM EDT 1.0 {tablet} suspe nded Atorvastatin Calcium 40 MG eCW1 ([facility]) atorvastatin 40 MG Oral Tablet Atorvastatin Calcium 40 MG Atorvastatin Calcium 40 MG 12/23/2019 12:00:00 AM EDT 1.0 {tablet} activ e Atorvastatin Calcium 40 MG eCW1 ([facility]) atorvastatin 40 MG Oral Tablet Atorvastatin Calcium 40 MG Atorvastatin Calcium 40 MG 12/23/2019 12:00:00 AM EDT active 1 tablet eCW1 ([facility]) atorvastatin 40 MG Oral Tablet Atorvastatin Calcium 40 MG Atorvastatin Calcium 40 MG 12/23/2019 12:00:00 AM EDT 1.0 {tablet} activ e Atorvastatin Calcium 40 MG eCW1 ([facility]) atorvastatin 40 MG Oral Tablet Atorvastatin Calcium 40 MG Atorvastatin Calcium 40 MG 12/23/2019 12:00:00 AM EDT 1.0 {tablet} suspe nded Atorvastatin Calcium 40 MG eCW1 ([facility]) atorvastatin 40 MG Oral Tablet Atorvastatin Calcium 40 MG Atorvastatin Calcium 40 MG 12/23/2019 12:00:00 AM EDT 1.0 {tablet} activ e Atorvastatin Calcium 40 MG eCW1 ([facility]) atorvastatin 40 MG Oral Tablet Atorvastatin Calcium 40 MG Atorvastatin Calcium 40 MG 12/23/2019 12:00:00 AM EDT 1.0 {tablet} activ e Atorvastatin Calcium 40 MG eCW1 ([facility]) atorvastatin 40 MG Oral Tablet Atorvastatin Calcium 40 MG Atorvastatin Calcium 40 MG 12/23/2019 12:00:00 AM EDT 1.0 {tablet} activ e Atorvastatin Calcium 40 MG eCW1 ([facility]) atorvastatin 40 MG Oral Tablet Atorvastatin Calcium 40 MG Atorvastatin Calcium 40 MG 12/23/2019 12:00:00 AM EDT 1.0 {tablet} activ e Atorvastatin Calcium 40 MG eCW1 ([facility]) atorvastatin 40 MG Oral Tablet Atorvastatin Calcium 40 MG Atorvastatin Calcium 40 MG 12/23/2019 12:00:00 AM EDT 1.0 {tablet} activ e Atorvastatin Calcium 40 MG eCW1 ([facility]) atorvastatin 40 MG Oral Tablet Atorvastatin Calcium 40 MG Atorvastatin Calcium 40 MG 12/23/2019 12:00:00 AM EDT 1.0 {tablet} activ e Atorvastatin Calcium 40 MG eCW1 ([facility]) atorvastatin 40 MG Oral Tablet Atorvastatin Calcium 40 MG Atorvastatin Calcium 40 MG 12/23/2019 12:00:00 AM EDT 1.0 {tablet} suspe nded Atorvastatin Calcium 40 MG eCW1 ([facility]) atorvastatin 40 MG Oral Tablet Atorvastatin Calcium 40 MG Atorvastatin Calcium 40 MG 12/23/2019 12:00:00 AM EDT 1.0 {tablet} activ e Atorvastatin Calcium 40 MG eCW1 ([facility]) 7.5-325 mg 12/02/2019 12:00:00 AM EDT tablet 60 TAKE ONE TABLET BY MOUTH EVERY 6 HOURS NEEDED MAXIMUM DAILY DOSE = FOUR TABLETS TAKE ONE TABLET BY MOUTH EVERY 6 HOURS NEEDED MAXIMUM DAILY DOSE = FOUR TABLETS SOLD: 12/02/2019 [facility] Acetaminophen 325 MG / Hydrocodone Steffi trate 7.5 MG Oral Tablet Hydrocodone- Acetaminophen 7.5-325 MG Hydrocodone-Acetaminophen 7.5-325 MG 12/01/2019 12:00:00 AM EDT active 1 tablet as needed eCW1 ([facility]) Acetaminophen 325 MG / Hydrocodone Steffi trate 7.5 MG Oral Tablet Hydrocodone- Acetaminophen 7.5-325 MG Hydrocodone-Acetaminophen 7.5-325 MG 12/01/2019 12:00:00 AM EDT active 1 tablet as needed eCW1 ([facility]) 7.5-325 mg 11/04/2019 12:00:00 AM EST tablet 60 TAKE ONE TABLET BY MOUTH EVERY 6 HOURS NEEDED MAXIMUM DAILY DOSE = FOUR TABLETS TAKE ONE TABLET BY MOUTH EVERY 6 HOURS NEEDED MAXIMUM DAILY DOSE = FOUR TABLETS SOLD: 11/04/2019 [facility] Acetaminophen 325 MG / Hydrocodone Steffi trate 7.5 MG Oral Tablet Hydrocodone- Acetaminophen 7.5-325 MG Hydrocodone-Acetaminophen 7.5-325 MG 11/02/2019 12:00:00 AM EST active 1 tablet as needed eCW1 ([facility]) Acetaminophen 325 MG / Hydrocodone Steffi trate 7.5 MG Oral Tablet Hydrocodone- Acetaminophen 7.5-325 MG Hydrocodone-Acetaminophen 7.5-325 MG 11/02/2019 12:00:00 AM EST active 1 tablet as needed eCW1 ([facility]) Physical Therapy evaluate and treat UNK 10/29/2019 12:00:00 AM EST suspended Physical Therapy evaluate and tr eat eCW1 ([facility]) Physical Therapy evaluate and treat UNK 10/29/2019 12:00:00 AM EST suspended Physical Therapy evaluate and tr eat eCW1 ([facility]) Physical Therapy evaluate and treat UNK 10/29/2019 12:00:00 AM EST active Physical Therapy evaluate and tr eat eCW1 ([facility]) Physical Therapy evaluate and treat UNK 10/29/2019 12:00:00 AM EST suspended Physical Therapy evaluate and tr eat eCW1 ([facility]) Physical Therapy evaluate and treat UNK 10/29/2019 12:00:00 AM EST active mechanical eval & tx eCW1 ([facility]) Physical Therapy evaluate and treat UNK 10/29/2019 12:00:00 AM EST suspended Physical Therapy evaluate and tr eat eCW1 ([facility]) Physical Therapy evaluate and treat UNK 10/29/2019 12:00:00 AM EST active Physical Therapy evaluate and tr eat eCW1 ([facility]) Physical Therapy evaluate and treat UNK 10/29/2019 12:00:00 AM EST suspended Physical Therapy evaluate and tr eat eCW1 ([facility]) Physical Therapy evaluate and treat UNK 10/29/2019 12:00:00 AM EST suspended Physical Therapy evaluate and tr eat eCW1 ([facility]) Physical Therapy evaluate and treat UNK 10/29/2019 12:00:00 AM EST suspended Physical Therapy evaluate and tr eat eCW1 ([facility]) Physical Therapy evaluate and treat UNK 10/29/2019 12:00:00 AM EST suspended Physical Therapy evaluate and tr eat eCW1 ([facility]) Physical Therapy evaluate and treat UNK 10/29/2019 12:00:00 AM EST active for post-concussion syndrome, f0 7.81 eCW1 ([facility]) Physical Therapy evaluate and treat UNK 10/29/2019 12:00:00 AM EST suspended Physical Therapy evaluate and tr eat eCW1 ([facility]) Physical Therapy evaluate and treat UNK 10/29/2019 12:00:00 AM EST active Physical Therapy evaluate and tr eat eCW1 ([facility]) Physical Therapy evaluate and treat UNK 10/29/2019 12:00:00 AM EST suspended Physical Therapy evaluate and tr eat eCW1 ([facility]) Physical Therapy evaluate and treat UNK 10/29/2019 12:00:00 AM EST active Physical Therapy evaluate and tr eat eCW1 ([facility]) Physical Therapy evaluate and treat UNK 10/29/2019 12:00:00 AM EST active mechanical eval & tx eCW1 ([facility]) Physical Therapy evaluate and treat UNK 10/29/2019 12:00:00 AM EST suspended Physical Therapy evaluate and tr eat eCW1 ([facility]) Physical Therapy evaluate and treat UNK 10/29/2019 12:00:00 AM EST suspended Physical Therapy evaluate and tr eat eCW1 ([facility]) Physical Therapy evaluate and treat UNK 10/29/2019 12:00:00 AM EST suspended Physical Therapy evaluate and tr eat eCW1 ([facility]) Physical Therapy evaluate and treat UNK 10/29/2019 12:00:00 AM EST suspended Physical Therapy evaluate and tr eat eCW1 ([facility]) Physical Therapy evaluate and treat UNK 10/29/2019 12:00:00 AM EST suspended Physical Therapy evaluate and tr eat eCW1 ([facility]) Physical Therapy evaluate and treat UNK 10/29/2019 12:00:00 AM EST suspended Physical Therapy evaluate and tr eat eCW1 ([facility]) Physical Therapy evaluate and treat UNK 10/29/2019 12:00:00 AM EST active Physical Therapy evaluate and tr eat eCW1 ([facility]) 7.5-325 mg 09/28/2019 12:00:00 AM EST tablet 60 TAKE ONE TABLET BY MOUTH EVERY 6 HOURS NEEDED MAXIMUM DAILY DOSE = 4 TAKE ONE TABLET BY MOUTH EVERY 6 HOURS NEEDED MAXIMUM DAILY DOSE = 4 SOLD: 09/29/2019 [facility] 350 mg 09/28/2019 12:00:00 AM EST tablet 7 TAKE ONE TABLET BY MOUTH EVERY 12 HOURS NEEDED FOR SPASMS AND PAIN MAXIMUM DAILY DOSE = 2 TAKE ONE TABLET BY MOUTH EVERY 12 HOURS NEEDED FOR SPASMS AND PAIN MAXIMUM DAILY DOSE = 2 SOLD: 09/29/2019 [facility] Acetaminophen 325 MG / Hydrocodone Steffi trate 7.5 MG Oral Tablet Hydrocodone- Acetaminophen 7.5-325 MG Hydrocodone-Acetaminophen 7.5-325 MG 09/25/2019 12:00:00 AM EST active 1 tablet as needed eCW1 ([facility]) Acetaminophen 325 MG / Hydrocodone Steffi trate 7.5 MG Oral Tablet Hydrocodone- Acetaminophen 7.5-325 MG Hydrocodone-Acetaminophen 7.5-325 MG 09/25/2019 12:00:00 AM EST active 1 tablet as needed eCW1 ([facility]) Acetaminophen 325 MG / Hydrocodone Steffi trate 7.5 MG Oral Tablet Hydrocodone- Acetaminophen 7.5-325 MG Hydrocodone-Acetaminophen 7.5-325 MG 09/25/2019 12:00:00 AM EST active 1 tablet as needed eCW1 ([facility]) atorvastatin 20 MG Oral Tablet ATORVASTATIN CALCIUM 09/17/2019 1 2:00:00 AM EST tablet 30 TAKE ONE TABLET BY MOUTH EVERY D AY TAKE ONE TABLET BY MOUTH EVERY DAY SOLD: 11/23/2019 [facility] 50 mg 09/17/2019 12:00:00 AM EST tablet 30 TAKE ONE TABLET BY MOUTH EVERY DAY TAKE ONE TABLET BY MOUTH EVERY DAY SOLD: 01/20/2020 [facility] Losartan Potassium 50 MG Oral Tablet LOSARTAN POTASSIUM 12:00:00 AM EST tablet 30 TAKE ONE TABLET BY MOUTH HERMAN RY DAY TAKE ONE TABLET BY MOUTH EVERY DAY SOLD: 09/18/2019 [facility] 50 mg 09/17/2019 12:00:00 AM EST tablet 30 TAKE ONE TABLET BY MOUTH EVERY DAY TAKE ONE TABLET BY MOUTH EVERY DAY SOLD: 12/24/2019 [facility] atorvastatin 20 MG Oral Tablet ATORVASTATIN CALCIUM 09/17/2019 1 2:00:00 AM EST tablet 30 TAKE ONE TABLET BY MOUTH EVERY D AY TAKE ONE TABLET BY MOUTH EVERY DAY SOLD: 09/18/2019 [facility] 50 mg 09/17/2019 12:00:00 AM EST tablet 30 TAKE ONE TABLET BY MOUTH EVERY DAY TAKE ONE TABLET BY MOUTH EVERY DAY SOLD: 02/24/2020 [facility] Losartan Potassium 50 MG Oral Tablet LOSARTAN POTASSIUM 12:00:00 AM EST tablet 30 TAKE ONE TABLET BY MOUTH HERMAN RY DAY TAKE ONE TABLET BY MOUTH EVERY DAY SOLD: 10/21/2019 [facility] atorvastatin 20 MG Oral Tablet ATORVASTATIN CALCIUM 09/17/2019 1 2:00:00 AM EST tablet 30 TAKE ONE TABLET BY MOUTH EVERY D AY TAKE ONE TABLET BY MOUTH EVERY DAY SOLD: 10/21/2019 [facility] Losartan Potassium 50 MG Oral Tablet LOSARTAN POTASSIUM 12:00:00 AM EST tablet 30 TAKE ONE TABLET BY MOUTH HERMAN RY DAY TAKE ONE TABLET BY MOUTH EVERY DAY SOLD: 11/23/2019 [facility] atorvastatin 20 MG Oral Tablet Atorvastatin Calcium 20 MG Atorvastatin Calcium 20 MG 09/15/2019 12:00:00 AM EST active 1 tablet eCW1 ([facility]) atorvastatin 20 MG Oral Tablet Atorvastatin Calcium 20 MG Atorvastatin Calcium 20 MG 09/15/2019 12:00:00 AM EST active 1 tablet eCW1 ([facility]) atorvastatin 20 MG Oral Tablet Atorvastatin Calcium 20 MG Atorvastatin Calcium 20 MG 09/15/2019 12:00:00 AM EST active 1 tablet eCW1 ([facility]) Insurance Providers Payer name Policy type / Coverage type Policy ID Covered libertarian ID Covered libertarian's relationship to louis Policy [place] Plan Information MEDICARE [id number] SP [id number] P61 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 [id number] SP [id number] MEDICARE [id number] Shelli [id number] P61 [place] MEDIC[place] C [id number] S [id number] P61 WC [id number] S [id number] Self Pay P [id number] S [id number] AIG CLAIMS SERVICES O [id number] O [id number] Sliding Fee Scale S [id number] S [id number] AIG [place] W [id number] Empl [id number] ANSI-Commercial [id number] ANSI-Medicare Part B [id number] ANSI-Commercial [id number] ANSI-Medicare Part B [id number] ANSI-Medicare Part B [id number] ANSI-Commercial [id number] MEDICARE [id number] P61 [facility] [id number] S [id number] MCRB [id number] ANSI-Commercial [id number] ANSI-Medicare Part B [id number] ANSI-Commercial [id number]-[id number]-8alo-[id number]-sxq9-82bx-4lwp-[id number] ANSI-Medicare Part B [id number]-[id number] fafk03vz-2vt7-6138-vtf1-326z1s8h5h1h ANSI-Medicare Part B [id number]-[id number] ANSI-Commercial [id number]-kdc3-9532-6z4m-z89b1y7g9p5f 2n0g376l-rkh7-8629-2t6a-w82l2e9l5i1e 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 WC [id number] AIG CS [id number] ANSI-Medicare Part B [id number]-p0jw-8027-[id number] ANSI-Commercial pc384nhm-4h8t-[id number] tk271cqu-4w5y-0254-266w-[id number] ANSI-Medicare Part B [id number] [id number]-1b50-5zvm-[id number] ANSI-Commercial [id number]-w82y-3kg9-h9q8-[id number] c28r8mm5-q30c-3ze2-j7c2-[id number] ANSI-Commercial [id number]-h7e8-7u19-f8r4-687lj5zde22d 9c468q7w-a7s9-0f42-i2t3-121hj6feh11n ANSI-Medicare Part B [id number]-[id number]-[id number] ANSI-Medicare Part B [id number]-[id number]-[id number] ANSI-Commercial [id number]-[id number]-[id number] Medicare P [id number] S [id number] A ANSI-Medicare Part B [id number] ANSI-Commercial [id number]-[id number]-o0wq-[id number]-m8s7-7u99-b3gg-[id number] WORKERS COMPENSATION GENERIC W [id number] Empl [id number] ANSI-Commercial [id number] ANSI-Medicare Part B [id number]-[id number]-[id number] ANSI-Medicare Part B [id number] ANSI-Commercial [id number]-[id number]-[id number] [id number]-[id number] ANSI-Medicare Part B [id number]-n7xj-8u2u-[id number] ANSI-Commercial [id number]-[id number]-[id number]-48c8-2v2q-[id number] ANSI-Medicare Part B [id number]-[id number] ANSI-Commercial 51m5p936-25k8-38f1-987d-a521e4qk0m64 [id number]-u675k5fv9z59 Sliding Fee Scale P [id number] S [id number] ANSI-Medicare Part B [id number]-[id number] ANSI-Commercial txpnh0o6-d55s-0c60-smkq-491i1syl9n74 xntsl3m5-z02h-5w45-amqy-250n0nca5e71 ANSI-Medicare Part B [id number]-[id number] ANSI-Commercial h36un7ch-0hgk-6r5z-8l2f-uyc8musjreli m69aa7oj-9xrl-9i5t-5j1c-hgv0ccnzrqeq ANSI-Commercial [id number]-w6yx-53m2-j6y7-62d57kc4dkr9 370475p9-n6bm-07z9-x3g5-77k07ew7pap3 ANSI-Medicare Part B [id number]-gk7s-9i38-[id number] 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 WC [id number] 18 [id number] ANSI-Medicare Part B [id number]-[id number] ANSI-Commercial [id number]-fn96-[id number]-st77-wt03k96ocnw4 ANSI-Commercial 079slwa0-d664-95xd-uhow-[id number] 841uqyb2-r609-12sg-daxf-65683nz991c7 ANSI-Medicare Part B [id number] [id number]-rc3u-830e-s6vo-01psgw921wz7 ANSI-Medicare Part B [id number]-u2760l12f3v6 ANSI-Commercial 48qil017-n332-1q95-p10t-[id number] 90abo375-a568-5n65-j05g-[id number] ANSI-Medicare Part B [id number]-di22-7m41-02n4-oqu8rly992f9 ANSI-Commercial mh4is38u-9pf9-3e99-jmp2-[id number] [id number]-9zc4-4k01-npz4-[id number] [employer] [employer] [id number] S [id number] [place]IC[place] [id number] S [id number] ANSI-Medicare Part B [id number]-[id number] ANSI-Commercial [id number]-[id number]-4611-83e5-7324-[id number] MEDICAID MEDICARE [id number] SP [id number] A 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 [id number] SP [id number] MEDICARE [id number] SP [id number] ANSI-Medicare Part B [id number] ANSI-Commercial [id number]-[id number] ANSI-Commercial [id number]-[id number]-[id number] ANSI-Medicare Part B [id number] ANSI-Commercial [id number]-[id number]-[id number] o991qypq-83w7-9p9e-[id number] ANSI-Commercial [id number]-192m-443p-0z4q-8e5x3i61qav8 [id number]-747q-448r-3a5t-7y6s5l32frw5 ANSI-Commercial [id number]-[id number] [id number]-[id number] ANSI-Commercial [id number]-5x1f-p2xs-[id number]-8u7f-e0zo-[id number] [employer] [id number] S [id number] [place]IC[place] [id number] S [id number] MEDICARE C [id number] S [id number] A MEDICARE [id number] SP [id number] A 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 [id number] SP [id number] 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 [id number] SP [id number] Medicare P [id number] S [id number] A Medicare [facility] Medicare Primary [id number] Self [id number] [employer] Workers Compensation [id number] Self [id number] MEDICARE [id number] SP [id number] A [employer] O [id number] S [id number] 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 [id number] SP [id number] Medicare [facility] Medicare Primary Self [employer] Workers Compensation [place] Self [employer] Workers Compensation Self Sliding Fee Scale P UNAVAILABLE S UNAVAILABLE Aig Workers Compensation Self 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 [id number] SP [id number] Medicare [place] [employer] Medicare Primary Self WORKERS COMPENSATION GENERIC W [id number] Empl [id number] [employer] P [id number] S [id number] A Problems, Conditions, and Diagnoses Code Display Name Description Problem Type Effective Dates Data Source(s) R94.31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 ([facility], [facility]) Body mass index (BMI) [Ratio] 25.8 kg/m2 25.8 k g/m2 [facility] ([facility], [facility]) Body height 68 [in_i] 68 [in_i] [facility] ([facility], [facility]) 5'8" Body weight 170.00 [lb_av] 170.00 [lb_av] MEDEN T ([facility], [facility]) Body temperature 98.9 [degF] 98.9 [degF] MEDENT ([facility], [facility]) Oxygen saturation in Arterial blood by Pulse oximetry 99 % 99 % [facility] ([facility], [facility]) Respiratory rate 14 /min 14 /min MED[facility] ( [facility], [facility]) Heart rate 108 /min 108 /min [facility] ([facility], [facility]) Diastolic blood pressure 98 mm[Hg] 98 mm[Hg] MEDENT ([facility], [facility]) manual Systolic blood pressure 168 mm[Hg] 168 mm[Hg] M EDENT ([facility], [facility]) manual Diastolic blood pressure 79 mm[Hg] 79 mm[Hg] eCW1 ([facility]) Systolic blood pressure 145 mm[Hg] 145 mm[Hg] e CW1 ([facility]) Body temperature 99.0 [degF] 99.0 [degF] eCW1 ( [facility]) Respiratory rate 18 /min 18 /min eCW1 ([facility]) Heart rate 67 /min 67 /min eCW1 ([facility]) Body mass index (BMI) [Ratio] 26.85 kg/m2 26.85 kg/m2 eCW1 ([facility]) Body height 67.5 [in_i] 67.5 [in_i] eCW1 ([facility]) Body weight 174 [lb_av] 174 [lb_av] eCW1 ([facility]) Diastolic blood pressure 88 mm[Hg] 88 mm[Hg] eCW1 ([facility]) Systolic blood pressure 132 mm[Hg] 132 mm[Hg] e CW1 ([facility]) Body temperature 99.0 [degF] 99.0 [degF] eCW1 ( [facility]) Respiratory rate 18 /min 18 /min eCW1 ([facility]) Heart rate 93 /min 93 /min eCW1 ([facility]) Body mass index (BMI) [Ratio] 26.57 kg/m2 26.57 kg/m2 eCW1 ([facility]) Body height 67.5 [in_i] 67.5 [in_i] eCW1 ([facility]) Body weight 172.2 [lb_av] 172.2 [lb_av] eCW1 ([facility]) Body surface area Derived from formula 1.93 m2 1.93 m2 [facility] ([facility], ) Body weight 76.829 kg 76.829 kg MEDENT ([facility], ) Saltese body weight 160 [lb_av] 160 [lb_av] MEDEN T ([facility], ) Body mass index (BMI) [Ratio] 25.0 kg/m2 25.0 k g/m2 [facility] ([facility], ) Body weight 169.38 [lb_av] 169.38 [lb_av] MEDEN T ([facility], ) Body height 69 [in_i] 69 [in_i] MEDENT ([facility], ) 5'9" Diastolic blood pressure 70 mm[Hg] 70 mm[Hg] MED[facility] ([facility], ) Systolic blood pressure 130 mm[Hg] 130 mm[Hg] M EDENT ([facility], ) Body mass index (BMI) [Ratio] 25.1 kg/m2 25.1 k g/m2 MEDENT ([facility], [facility]) Body height 69 [in_i] 69 [in_i] MEDENT ([facility], [facility]) 5'9" Body weight 170.00 [lb_av] 170.00 [lb_av] MEDEN T ([facility], [facility]) Body temperature 97.6 [degF] 97.6 [degF] MEDENT ([facility]) Oxygen saturation in Arterial blood by Pulse oximetry 98 % 98 % [facility] ([facility]) Respiratory rate 20 /min 20 /min MED[facility] ( [facility], [facility]) Heart rate 78 /min 78 /min MED[facility] ([facility], [facility]) Diastolic blood pressure 88 mm[Hg] 88 mm[Hg] MEDENT ([facility]) Systolic blood pressure 152 mm[Hg] 152 mm[Hg] M EDENT ([facility], [facility]) Diastolic blood pressure 75 mm[Hg] 75 mm[Hg] eCW1 ([facility]) Systolic blood pressure 145 mm[Hg] 145 mm[Hg] e CW1 ([facility]) Body temperature 97.8 [degF] 97.8 [degF] eCW1 ( [facility]) Respiratory rate 18 /min 18 /min eCW1 ([facility]) Heart rate 62 /min 62 /min eCW1 ([facility]) Body mass index (BMI) [Ratio] 27.62 kg/m2 27.62 kg/m2 eCW1 ([facility]) Body height 67.5 [in_i] 67.5 [in_i] eCW1 ([facility]) Body weight 179 [lb_av] 179 [lb_av] eCW1 ([facility]) Diastolic blood pressure 70 mm[Hg] 70 mm[Hg] eCW1 ([facility]) Systolic blood pressure 132 mm[Hg] 132 mm[Hg] e CW1 ([facility]) Body temperature 98.1 [degF] 98.1 [degF] eCW1 ( [facility]) Respiratory rate 18 /min 18 /min eCW1 ([facility]) Heart rate 72 /min 72 /min eCW1 ([facility]) Body mass index (BMI) [Ratio] 26.75 kg/m2 26.75 kg/m2 eCW1 ([facility]) Body height 67.5 [in_i] 67.5 [in_i] eCW1 ([facility]) Body weight 173.4 [lb_av] 173.4 [lb_av] eCW1 ([facility]) Diastolic blood pressure 72 mm[Hg] 72 mm[Hg] eCW1 ([facility]) Systolic blood pressure 138 mm[Hg] 138 mm[Hg] e CW1 ([facility]) Body temperature 98.5 [degF] 98.5 [degF] eCW1 ( [facility]) Respiratory rate 18 /min 18 /min eCW1 ([facility]) Heart rate 71 /min 71 /min eCW1 ([facility]) Body mass index (BMI) [Ratio] 27.03 kg/m2 27.03 kg/m2 W1 ([facility]) Body height 67.5 [in_i] 67.5 [in_i] eCW1 ([facility]) Body weight 79.5 kg 79.5 kg eCW1 ([facility]) Body weight 175.2 [lb_av] 175.2 [lb_av] eCW1 ([facility]) Diastolic blood pressure 74 mm[Hg] 74 mm[Hg] eCW1 ([facility]) Systolic blood pressure 114 mm[Hg] 114 mm[Hg] e CW1 ([facility]) Body temperature 98.9 [degF] 98.9 [degF] eCW1 ( [facility]) Respiratory rate 17 /min 17 /min eCW1 ([facility]) Heart rate 62 /min 62 /min eCW1 ([facility]) Body mass index (BMI) [Ratio] 26.85 kg/m2 26.85 kg/m2 eCW1 ([facility]) Body height [in_us] eCW1 ([facility]) Body weight Measured 174 [lb_av] 174 [lb_av] eC W1 ([facility]) Diastolic blood pressure 70 mm[Hg] 70 mm[Hg] eCW1 ([facility]) Systolic blood pressure 110 mm[Hg] 110 mm[Hg] e CW1 ([facility]) Body temperature 98.6 [degF] 98.6 [degF] eCW1 ( [facility]) Respiratory rate 18 /min 18 /min eCW1 ([facility]) Heart rate 64 /min 64 /min eCW1 ([facility]) Body mass index (BMI) [Ratio] 26.69 kg/m2 26.69 kg/m2 eCW1 ([facility]) Body height [in_us] eCW1 ([facility]) Body weight Measured 173 [lb_av] 173 [lb_av] eC W1 ([facility]) Diastolic blood pressure 69 mm[Hg] 69 mm[Hg] eCW1 ([facility]) Systolic blood pressure 127 mm[Hg] 127 mm[Hg] e CW1 ([facility]) Body temperature 98 [degF] 98 [degF] eCW1 ([facility]) Respiratory rate 16 /min 16 /min eCW1 ([facility]) Heart rate 58 /min 58 /min eCW1 ([facility]) Body mass index (BMI) [Ratio] 27.46 kg/m2 27.46 kg/m2 eCW1 ([facility]) Body height [in_us] eCW1 ([facility]) Body weight Measured 178 [lb_av] 178 [lb_av] eC W1 ([facility]) Diastolic blood pressure 80 mm[Hg] 80 mm[Hg] eCW1 ([facility]) Systolic blood pressure 130 mm[Hg] 130 mm[Hg] e CW1 ([facility]) Body temperature 98.7 [degF] 98.7 [degF] eCW1 ( [facility]) Respiratory rate 18 /min 18 /min eCW1 ([facility]) Heart rate 86 /min 86 /min eCW1 ([facility]) Body mass index (BMI) [Ratio] 27.50 kg/m2 27.50 kg/m2 eCW1 ([facility]) Body height [in_us] eCW1 ([facility]) Body weight Measured 178.2 [lb_av] 178.2 [lb_av ] eCW1 ([facility]) Patient Treatment Plan of Care Planned Activity Planned Date Details Description Data Source (s) Physical Therapy evaluate and treat 10/21/2020 12:00:00 AM EST eCW1 ([facility]) Physical Therapy evaluate and treat 10/21/2020 12:00:00 AM EST eCW1 ([facility]) Physical Therapy evaluate and treat 10/21/2020 12:00:00 AM EST eCW1 ([facility]) Physical Therapy evaluate and treat 10/21/2020 12:00:00 AM EST eCW1 ([facility]) Physical Therapy evaluate and treat 10/21/2020 12:00:00 AM EST eCW1 ([facility]) Physical Therapy evaluate and treat 10/21/2020 12:00:00 AM EST eCW1 ([facility]) Chlorthalidone 25 MG Oral Tablet 10/11/2020 12:00:00 AM EST eCW1 ([facility]) Chlorthalidone 25 MG Oral Tablet 10/11/2020 12:00:00 AM EST eCW1 ([facility]) Chlorthalidone 25 MG Oral Tablet 10/11/2020 12:00:00 AM EST eCW1 ([facility]) Chlorthalidone 25 MG Oral Tablet 10/11/2020 12:00:00 AM EST eCW1 ([facility]) Chlorthalidone 25 MG Oral Tablet 10/11/2020 12:00:00 AM EST eCW1 ([facility]) Chlorthalidone 25 MG Oral Tablet 10/11/2020 12:00:00 AM EST eCW1 ([facility]) Chlorthalidone 25 MG Oral Tablet 10/11/2020 12:00:00 AM EST eCW1 ([facility]) Chlorthalidone 25 MG Oral Tablet 10/11/2020 12:00:00 AM EST eCW1 ([facility]) Acetaminophen 325 MG / Hydrocodone Bitartrate 7.5 MG O ral Tablet 10/10/2020 12:00:00 AM EST eCW1 ([facility]) Acetaminophen 325 MG / Hydrocodone Bitartrate 7.5 MG O ral Tablet 10/10/2020 12:00:00 AM EST eCW1 ([facility]) Acetaminophen 325 MG / Hydrocodone Bitartrate 7.5 MG O ral Tablet 10/10/2020 12:00:00 AM EST eCW1 ([facility]) Acetaminophen 325 MG / Hydrocodone Bitartrate 7.5 MG O ral Tablet 10/10/2020 12:00:00 AM EST eCW1 ([facility]) Acetaminophen 325 MG / Hydrocodone Bitartrate 7.5 MG O ral Tablet 10/10/2020 12:00:00 AM EST eCW1 ([facility]) Acetaminophen 325 MG / Hydrocodone Bitartrate 7.5 MG O ral Tablet 10/10/2020 12:00:00 AM EST eCW1 ([facility]) Acetaminophen 325 MG / Hydrocodone Bitartrate 7.5 MG O ral Tablet 10/10/2020 12:00:00 AM EST eCW1 ([facility]) Acetaminophen 325 MG / Hydrocodone Bitartrate 7.5 MG O ral Tablet 10/10/2020 12:00:00 AM EST eCW1 ([facility]) Acetaminophen 325 MG / Hydrocodone Bitartrate 7.5 MG O ral Tablet 10/10/2020 12:00:00 AM EST eCW1 ([facility]) Acetaminophen 325 MG / Hydrocodone Bitartrate 7.5 MG O ral Tablet 10/10/2020 12:00:00 AM EST eCW1 ([facility]) Acetaminophen 325 MG / Hydrocodone Bitartrate 7.5 MG O ral Tablet 09/01/2020 12:00:00 AM EST eCW1 ([facility]) Acetaminophen 325 MG / Hydrocodone Bitartrate 7.5 MG O ral Tablet 07/22/2020 12:00:00 AM EDT eCW1 ([facility]) Acetaminophen 325 MG / Hydrocodone Bitartrate 7.5 MG O ral Tablet 07/22/2020 12:00:00 AM EDT eCW1 ([facility]) Humira Pen 40 MG/0.4ML 07/12/2020 12:00:00 AM EDT eCW1 ([facility]) Acetaminophen 325 MG / Hydrocodone Bitartrate 7.5 MG O ral Tablet 06/23/2020 12:00:00 AM EDT eCW1 ([facility]) Acetaminophen 325 MG / Hydrocodone Bitartrate 7.5 MG O ral Tablet 01/27/2020 12:00:00 AM EDT eCW1 ([facility]) Acetaminophen 325 MG / Hydrocodone Bitartrate 7.5 MG O ral Tablet 01/05/2020 12:00:00 AM EDT eCW1 ([facility]) atorvastatin 40 MG Oral Tablet 12/23/2019 12:00:00 AM EDT eCW1 ([facility]) atorvastatin 40 MG Oral Tablet 12/23/2019 12:00:00 AM EDT eCW1 ([facility]) atorvastatin 40 MG Oral Tablet 12/23/2019 12:00:00 AM EDT eCW1 ([facility]) atorvastatin 40 MG Oral Tablet 12/23/2019 12:00:00 AM EDT eCW1 ([facility]) atorvastatin 40 MG Oral Tablet 12/23/2019 12:00:00 AM EDT eCW1 ([facility]) atorvastatin 40 MG Oral Tablet 12/23/2019 12:00:00 AM EDT eCW1 ([facility]) atorvastatin 40 MG Oral Tablet 12/23/2019 12:00:00 AM EDT eCW1 ([facility]) atorvastatin 40 MG Oral Tablet 12/23/2019 12:00:00 AM EDT eCW1 ([facility]) Acetaminophen 325 MG / Hydrocodone Bitartrate 7.5 MG O ral Tablet 12/01/2019 12:00:00 AM EDT eCW1 ([facility]) Acetaminophen 325 MG / Hydrocodone Bitartrate 7.5 MG O ral Tablet 12/01/2019 12:00:00 AM EDT eCW1 ([facility]) Acetaminophen 325 MG / Hydrocodone Bitartrate 7.5 MG O ral Tablet 11/02/2019 12:00:00 AM EST eCW1 ([facility]) Physical Therapy evaluate and treat 10/29/2019 12:00:00 AM EST eCW1 ([facility]) Physical Therapy evaluate and treat 10/29/2019 12:00:00 AM EST eCW1 ([facility]) Physical Therapy evaluate and treat 10/29/2019 12:00:00 AM EST eCW1 ([facility]) Physical Therapy evaluate and treat 10/29/2019 12:00:00 AM EST eCW1 ([facility]) Physical Therapy evaluate and treat 10/29/2019 12:00:00 AM EST eCW1 ([facility]) Physical Therapy evaluate and treat 10/29/2019 12:00:00 AM EST eCW1 ([facility]) Acetaminophen 325 MG / Hydrocodone Bitartrate 7.5 MG O ral Tablet 09/25/2019 12:00:00 AM EST eCW1 ([facility])
[2020-11-11] MEDS ORDERED: LR 1,000 ML IV ONE (07:00)
[2020-11-11] MEDS ORDERED: ceFAZolin SOD 2 GM in IV 1 EA IV ONE (07:00)
[2020-11-11] MEDS ORDERED: IBUP200C25 PO (07:05)
[2020-11-11] MEDS ORDERED: dexameTHASONE 4 MG/ML 1ML VIAL (J1100 PER 1MG) As Ordered ONE (07:11)
[2020-11-11] MEDS ORDERED: ONDANSETRON 4MG/2ML VIAL As Ordered ONE (07:11)
[2020-11-11] MEDS ORDERED: propofoL 200 MG/20 ML VIAL As Ordered ONE (07:11)
[2020-11-11] MEDS ORDERED: fentaNYL 250 MCG/5 ML INJECTION (J3010) As Ordered ONE (07:11)
[2020-11-11] MEDS ORDERED: LIDOCAINE 2% 100MG/5ML SDV (FOR ANES.) As Ordered ONE (07:11)
[2020-11-11] MEDS ORDERED: BUPIVACAINE/EPIN 0.5% 30 ML VIAL As Ordered ONE (07:12)
[2020-11-11] MEDS ORDERED: MIDAZOLAM INJ 2MG/2ML VIAL (J2250 PER 1MG) As Ordered ONE (07:12)
[2020-11-11] MEDS ORDERED: LIDOCAINE 1% SDV 30ML VIAL As Ordered ONE (07:12)
[2020-11-11] MEDS ORDERED: HEPARIN SOD (PORCINE) 5000UNITS/ML 1ML VIAL/SYRINGE As Ordered ONE ×3 (07:13→08:24)
[2020-11-11 07:18] LABS: HEMATOCRIT 46.2 % (42.0-52.0); HEMOGLOBIN 15.5 g/dl (13.5-17.5); MEAN CORPUSCULAR HEMOGLOBIN 30.9 pg (27.0-33.0); MEAN CORPUSCULAR HGB CONC 33.5 g/dl (32.0-36.5); PLATELET COUNT, AUTOMATED 287 10^3/uL (150-450); RED BLOOD COUNT 5.02 10^6/uL (4.30-6.10)
[2020-11-11 07:44] LABS: INR 0.97; PROTHROMBIN TIME 13.1 SECONDS (12.5-14.3)
[2020-11-11] MEDS ORDERED: ROCURONIUM BROMIDE 50 MG/5 ML VIAL As Ordered ONE (07:45)
[2020-11-11 08:10] LABS: CALCIUM LEVEL 8.9 MG/DL (8.8-10.2); CREATININE FOR GFR 1.3 MG/DL (0.70-1.30); GLOMERULAR FILTRATION RATE 59.5 (>49); POTASSIUM SERUM 3.5 MEQ/L (3.5-5.1)
[2020-11-11] MEDS ORDERED: SUGAMMADEX SODIUM 500 MG/5 ML VIAL (BRIDION) As Ordered ONE (08:48)
--- NOTE | 2020-11-11 09:13 | ROOPDOC ---
[facility] Report Of Operation Report of Operation DATE OF PROCEDURE: 11/11/20 PREPROCEDURE DIAGNOSES: Thromboembolism left brachial artery with claudication POSTPROCEDURE DIAGNOSES: Same PROCEDURE: Left brachial thromboembolectomy SURGEON: Cy Luciano MD ANESTHESIA: General anesthesia INDICATION FOR PROCEDURE: This is a 64-year-old gentleman with thromboembolism of the left brachial artery. 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 The right hand does not have this problem. This is become quite a nuisance while he is trying to work outside. He has been on anticoagulation and has done well with this. Risks benefits and alternatives to a left thrombo-embolectomy of the left brachial artery and radial and ulnar arteries were explained to the patient and he was agreeable to proceed. Informed consent was obtained. REPORT OF OPERATION: The patient was brought to the operating room in stable condition. General anesthesia and antibiotics were administered without complication. His left upper extremity was prepped and draped in a sterile fashion. A timeout was performed. A transverse incision was made 1 fingerbreadth distal to the antecubital crease over the brachial artery. This was carried down to the subcutaneous tissue with Bovie cautery. Care was taken to preserve the cephalic and basilic veins. The veins were mobilized medially. We then continued the dissection down to the brachial artery. It was skeletonized proximally and distally within the incision and Vesseloops were placed proximally and distally. There was no signal over the brachial artery with Doppler. 5000 units of heparin was given and allowed to circulate. Salutes were secured. A transverse incision was made in the brachial artery. A #3 Kleber balloon was advanced proximally, and with loosening of the vessel loop, a spray of blood and thrombus spontaneously evacuated off the field. We then inflated the Kleber balloon and upon retracting it, no other significant thrombus was noted. We then passed the Kleber into first the radial artery with no significant thrombus removed, and good backbleeding, and then in the ulnar artery again with no significant thrombus removed and good backbleeding. We irrigated with heparinized saline. The arteriotomy was closed with interrupted 6-0 Prolene sutures. Before the final sutures are placed we flushed the inflow and outflow of the artery near again with heparinized saline. The final sutures were placed. Good hemostasis was noted. Doppler confirmed excellent triphasic flow through the brachial artery and there was a good pulses at the radial and ulnar arteries. We then irrigated with saline. The deep tissues were approximated with running 2-0 Vicryl suture. The dermal layer was approximated with interrupted 4-0 Vicryl sutures. The skin was closed with a running subcuticular Monocryl suture. The incision was clean and dry. Mastisol and Steri-Strips replace the length of the incision, and then a dry gauze and Tegaderm were placed as a final dressing. The patient was allowed to awaken from anesthesia was taken to recovery in stable condition. He tolerated the procedure and the anesthesia well. ESTIMATED BLOOD LOSS: Approximately 10 mL. COMPLICATIONS: None. PLAN: Ok to resume home diet and medications and restart eliquis in the morning, 11/12/2020. We will see the patient back in 1 week to check his incision. No lifting greater than 5 pounds or strenuous exercise for 1 week. Leave dressing over incision intact for 3 days, then okay to remove Tegaderm and dry gauze but leave Steri-Strips intact for 7 days to help incision heal. Okay to shower after 24 hours. We appreciate the opportunity to participate in the care of this patient. CY LUCIANO MD Nov 11, 2020 09:13
[2020-11-11] MEDS ORDERED: OXYC1TAB23 PO (09:17)
[2020-11-11] MEDS ORDERED: oxyCODONE 5MG TAB PO PRN (09:30)
[2020-11-11] MEDS ORDERED: LR 1,000 ML IV SCH (09:30)
[2020-11-11] MEDS ORDERED: ONDANSETRON 4MG/2ML VIAL IV PRN (09:30)
[2020-11-11] MEDS ORDERED: fentaNYL 100 MCG/2 ML INJECTION (J3010) IV PRN (09:30)
[2020-11-11 10:00] VITALS: BP 155/77
== END 2020-11-11 10:50 | disposition home or self-care (01) ==
LOC: M SDC 06:24
PROVIDERS: ATTEND Surgery Vascular Surgery
DX: I74.2 Embolism and thrombosis of arteries of the upper extremities (principal); E78.00 Pure hypercholesterolemia, unspecified; F07.81 Postconcussional syndrome; F17.210 Nicotine dependence, cigarettes, uncomplicated; F32.9 Major depressive disorder, single episode, unspecified; F41.9 Anxiety disorder, unspecified; G43.909 Migraine, unspecified, not intractable, without status migrainosus; I10 Essential (primary) hypertension; K40.90 Unilateral inguinal hernia, without obstruction or gangrene, not specified as recurrent; M50.122 Cervical disc disorder at C5-C6 level with radiculopathy; R07.9 Chest pain, unspecified; R94.31 Abnormal electrocardiogram [ECG] [EKG]; Z79.01 Long term (current) use of anticoagulants; Z79.899 Other long term (current) drug therapy
CPT/HCPCS: 34101; 36415; 80048; 85027; 85610; 85730; 86850; 86900; 86901; J0690; J1100; J1644; J2250; J2405; J3010

== ENCOUNTER 2020-11-20 16:08 | Emergency (ER) | payer MEDICARE ==
[~2020-11-20] VITALS: Ht 91.4 cm; Wt 80.7 kg
[~2020-11-20 16:08] MED LIST changes: +IBUP200C25 PO; +OXYC1TAB23 PO
[2020-11-20] MEDS ORDERED: LOSA50TA88 (16:19)
--- NOTE | 2020-11-20 18:51 | REPVR ---
PROCEDURE INFORMATION: Exam: US Duplex Left Upper Extremity Veins, Limited Exam date and time: 11/20/2020 6:02 PM Age: 64 years old Clinical indication: Pain; Arm, upper; Left; Additional info: Recent brachial thrombectomy; Lue swelling/pain TECHNIQUE: Imaging protocol: Real-time Duplex ultrasound of the Left Upper Extremity with 2-D toledo scale, color Doppler flow and spectral waveform analysis with image documentation. Limited exam focused on the left upper extremity veins. COMPARISON: US DUPLEX EXT UPPER VEINS UNILATE 09/23/2020 10:52 AM FINDINGS: Left deep veins: Unremarkable. Axillary and brachial veins are patent throughout without thrombus. Normal Doppler waveforms. Normal compressibility and/or augmentation response. Visualized internal jugular and subclavian veins are patent. Left superficial veins: Unremarkable. Visualized cephalic and basilic veins are patent without thrombus. Soft tissues: Unremarkable. IMPRESSION: No evidence of deep vein thrombosis. Electronically signed by: Bimal Loja On 11/20/2020 18:51:27 PM
--- NOTE | 2020-11-20 18:58 | REPVR ---
PROCEDURE INFORMATION: Exam: US Duplex Right Upper Extremity Arteries Exam date and time: 11/20/2020 6:02 PM Age: 64 years old Clinical indication: Pain; Arm, upper; Left; Additional info: Recent brachial thrombectomy; Lue swelling/pain TECHNIQUE: Imaging protocol: Right Real-time ultrasound scan of the arteries of the right upper extremity with 2-D toledo scale, color Doppler flow and spectral waveform analysis. COMPARISON: CT ANGIO UPPER EXTREM 09/23/2020 11:20 AM FINDINGS: Right subclavian artery: No occlusion or significant stenosis. Normal waveform. Right axillary artery: No occlusion or significant stenosis. Normal waveform. Right brachial artery: No occlusion or significant stenosis. Normal waveform. Right radial artery: The radial artery is tortuous as it courses around the antecubital hematoma. There is mild decreased velocity but no evidence of thrombus. Right ulnar artery: No occlusion or significant stenosis. Normal waveform. Soft tissues: There is a oval echogenic area in the antecubital fossa measuring 2.5 cm in length by 2.5 cm in transverse dimension by 1 cm in thickness and probably a hematoma. IMPRESSION: 2.5 cm x 2.5 cm x 1 cm in thickness hematoma in the antecubital fossa. There is arterial flow in all of the arteries with the radial artery being tortuous and mild diminished velocity. Electronically signed by: Bimal Loja On 11/20/2020 18:58:54 PM
[2020-11-20 19:16] VITALS: BP 159/80
--- NOTE | 2020-11-21 20:10 | ED PDOC ---
Post-Departure Follow-Up upper extremity us report faxed to [facility]t [facility] and [facility] for fu Angela Taveras MD Nov 21, 2020 20:10
== END 2020-11-20 19:18 | disposition home or self-care (01) ==
LOC: M ED 16:08
DX: G89.18 Other acute postprocedural pain (principal); M79.602 Pain in left arm; I10 Essential (primary) hypertension; E78.5 Hyperlipidemia, unspecified; F33.9 Major depressive disorder, recurrent, unspecified; F41.9 Anxiety disorder, unspecified; Z79.899 Other long term (current) drug therapy; Z79.01 Long term (current) use of anticoagulants; Z79.82 Long term (current) use of aspirin; F17.210 Nicotine dependence, cigarettes, uncomplicated

== ENCOUNTER → 2020-12-20 | Outpatient (CLI) | payer MEDICARE ==
[~2020-12-20] MED LIST changes: +LOSA50TA88
--- NOTE | 2020-12-20 13:35 | REP ---
INDICATION: BICEPS MUSCLE TEAR, LEFT. COMPARISON: None. TECHNIQUE: Axial and coronal images were acquired. The study was aborted due to the patient's inability to remain motionless. Patient wished. The exam. Image quality is poor. FINDINGS: There is some motion artifact and fat saturation artifact limiting exam quality severely. Cannot adequately visualized brachialis and biceps tendons in the anterior soft tissues. No occult fracture is evident but bone signal intensity is compromised as well. No soft tissue mass or obvious hematoma. IMPRESSION: Extremely limited exam quality. Unable to adequately visualize biceps tendon or muscle. Abbreviated exam due to patient tolerance issues. <Electronically signed by Richard Gee > 12/20/20 [id number]
== END ==
LOC: M PLARAD 10:48
PROVIDERS: ATTEND Psychiatry & Neurology Neurology
DX: S46.112A Strain of muscle, fascia and tendon of long head of biceps, left arm, initial encounter (principal); X58.XXXA Exposure to other specified factors, initial encounter; Y92.9 Unspecified place or not applicable

== ENCOUNTER → 2021-11-15 | Outpatient (REF) | payer MEDICARE ==
[~2021-11-15] MED LIST changes: +LOSA50TA28; +LOSA50TA28 PO; -LOSA50TA88; -LOSA50TA88 PO
[2021-11-15 11:36] LABS: HEMOGLOBIN 15.8 g/dl (13.5-17.5); MEAN CORPUSCULAR HEMOGLOBIN 31.3 pg (27.0-33.0); MEAN CORPUSCULAR HGB CONC 32.9 g/dl (32.0-36.5); MEAN CORPUSCULAR VOLUME 95.2 fl (80.0-96.0); PLATELET COUNT, AUTOMATED 337 10^3/uL (150-450); RED BLOOD COUNT 5.04 10^6/uL (4.30-6.10); WHITE BLOOD COUNT 9.3 10^3/uL (4.0-10.0)
[2021-11-15 12:06] LABS: ALBUMIN 3.8 GM/DL (3.2-5.2); BILIRUBIN,TOTAL 0.4 MG/DL (0.2-1.0); CALCIUM LEVEL 9.2 MG/DL (8.8-10.2); CREATININE FOR GFR 1.31 MG/DL (0.70-1.30); GLOMERULAR FILTRATION RATE 58.8 (>49); MAGNESIUM LEVEL 2.3 MG/DL (1.8-2.4); POTASSIUM SERUM 4.4 MEQ/L (3.5-5.1); THYROID STIMULATING HORMONE 4.96 uIU/ML (0.358-3.740); TOTAL PROTEIN 6.7 GM/DL (6.4-8.2)
== END ==
LOC: M SFHCCLAY 08:52
PROVIDERS: ATTEND Family Medicine
DX: L40.50 Arthropathic psoriasis, unspecified (principal); K40.90 Unilateral inguinal hernia, without obstruction or gangrene, not specified as recurrent; M62.838 Other muscle spasm

== ENCOUNTER → 2021-11-22 | Outpatient (REF) | payer MEDICARE | LOC: M SFHCCLAY 16:15 | PROVIDERS: ATTEND Family Medicine | DX: D23.5 Other benign neoplasm of skin of trunk (principal) ==

== ENCOUNTER → 2021-12-19 | Outpatient (REF) | payer MEDICARE ==
[2021-12-19 16:23] LABS: HEMATOCRIT 48.2 % (42.0-52.0); HEMOGLOBIN 15.9 g/dl (13.5-17.5); MEAN CORPUSCULAR HEMOGLOBIN 31.4 pg (27.0-33.0); MEAN CORPUSCULAR VOLUME 95.3 fl (80.0-96.0); PLATELET COUNT, AUTOMATED 374 10^3/uL (150-450); RED BLOOD COUNT 5.06 10^6/uL (4.30-6.10); WHITE BLOOD COUNT 9.2 10^3/uL (4.0-10.0)
[2021-12-19 17:01] LABS: BLOOD UREA NITROGEN 20 MG/DL (7-18); CALCIUM LEVEL 9.2 MG/DL (8.8-10.2); CARBON DIOXIDE LEVEL 28 MEQ/L (21-32); CHLORIDE LEVEL 108 MEQ/L (98-107); CHOLESTEROL LEVEL 267 MG/DL (<200); CHOLESTEROL RISK RATIO 6.357 (<5); CREATININE FOR GFR 1.27 MG/DL (0.70-1.30); FREE T4 0.88 NG/DL (0.76-1.46); GLOMERULAR FILTRATION RATE > 60.0 (>49); GLUCOSE, FASTING 83 MG/DL (70-100); HDL CHOLESTEROL 42 MG/DL (>40); LDL CHOLESTEROL 201 MG/DL (<100); NON-HDL-C 225 MG/DL; SODIUM LEVEL 139 MEQ/L (136-145); TRIGLYCERIDES LEVEL 118 MG/DL (<150)
== END ==
LOC: M SFHCCLAY 10:01
PROVIDERS: ATTEND Family Medicine
DX: K40.90 Unilateral inguinal hernia, without obstruction or gangrene, not specified as recurrent (principal); I10 Essential (primary) hypertension

== ENCOUNTER → 2022-01-05 | Outpatient (REF) | payer MEDICARE | LOC: M SFHCDERM 10:46 | PROVIDERS: ATTEND Dermatology | DX: L90.5 Scar conditions and fibrosis of skin (principal) ==

== ENCOUNTER → 2022-04-20 | Outpatient (REF) | payer MEDICARE, OTHER ==
[~2022-04-20] MED LIST changes: +HYDR-4278 PO; -HYDR7.5T66 PO
== END ==
LOC: M SFHCDERM 16:53
PROVIDERS: ATTEND Nurse Practitioner Family
DX: L82.1 Other seborrheic keratosis (principal); D36.12 Benign neoplasm of peripheral nerves and autonomic nervous system, upper limb, including shoulder

== ENCOUNTER 2022-07-06 09:35 | Emergency (ER) | payer OTHER, MEDICARE ==
[~2022-07-06] VITALS: Ht 172.7 cm; Wt 77.3 kg
[2022-07-06] MEDS ORDERED: ROSU5TAB5 PO (09:58)
[2022-07-06] MEDS: MORPHINE 2 MG/ML 1ML VIAL IV ONE ×2 (10:15→10:22)
[2022-07-06] MEDS ORDERED: ISOVUE-370 76% 100ML VIAL As Ordered ONE (10:35)
[2022-07-06 10:39] LABS: HEMATOCRIT 44.2 % (42.0-52.0); MEAN CORPUSCULAR HEMOGLOBIN 31.8 pg (27.0-33.0); MEAN CORPUSCULAR HGB CONC 33.9 g/dl (32.0-36.5); MEAN CORPUSCULAR VOLUME 93.8 fl (80.0-96.0); PLATELET COUNT, AUTOMATED 288 10^3/uL (150-450); RED BLOOD COUNT 4.71 10^6/uL (4.30-6.10); WHITE BLOOD COUNT 9.6 10^3/uL (4.0-10.0)
[2022-07-06 12:14] VITALS: BP 180/86
== END 2022-07-06 12:18 | disposition left against medical advice (07) ==
LOC: M ED 09:35
DX: S32.012A Unstable burst fracture of first lumbar vertebra, initial encounter for closed fracture (principal); S22.082A Unstable burst fracture of T11-T12 vertebra, initial encounter for closed fracture; S22.060A Wedge compression fracture of T7-T8 vertebra, initial encounter for closed fracture; S06.0X9A Concussion with loss of consciousness of unspecified duration, initial encounter; W11.XXXA Fall on and from ladder, initial encounter; F17.200 Nicotine dependence, unspecified, uncomplicated; Y92.009 Unspecified place in unspecified non-institutional (private) residence as the place of occurrence of the external cause; Z53.20 Procedure and treatment not carried out because of patient's decision for unspecified reasons; Z79.01 Long term (current) use of anticoagulants
CPT/HCPCS: 36415; 70450; 71260; 72125; 72128; 72131; 74177; 80047; 85027; 99284; Q9967

== ENCOUNTER → 2022-07-19 | Outpatient (REF) | payer MEDICARE, OTHER ==
[~2022-07-19] MED LIST changes: +ROSU5TAB5 PO
[2022-07-19 13:07] LABS: ALBUMIN 3.6 GM/DL (3.2-5.2); ALT/SGPT 38 U/L (12-78); BILIRUBIN,TOTAL 0.4 MG/DL (0.2-1.0); BLOOD UREA NITROGEN 20 MG/DL (7-18); CARBON DIOXIDE LEVEL 25 MEQ/L (21-32); CHLORIDE LEVEL 105 MEQ/L (98-107); CHOLESTEROL LEVEL 197 MG/DL (<200); CHOLESTEROL RISK RATIO 5.051 (<5); CREATININE FOR GFR 1.18 MG/DL (0.70-1.30); GLOMERULAR FILTRATION RATE > 60.0 (>49); GLUCOSE, FASTING 100 MG/DL (70-100); HDL CHOLESTEROL 39 MG/DL (>40); LDL CHOLESTEROL 129 MG/DL (<100); NON-HDL-C 158 MG/DL; POTASSIUM SERUM 4.7 MEQ/L (3.5-5.1); SODIUM LEVEL 138 MEQ/L (136-145); TOTAL PROTEIN 6.8 GM/DL (6.4-8.2); TRIGLYCERIDES LEVEL 147 MG/DL (<150)
== END ==
LOC: M SFHCCLAY 09:01
PROVIDERS: ATTEND Family Medicine
DX: I73.9 Peripheral vascular disease, unspecified (principal); Z79.899 Other long term (current) drug therapy

== ENCOUNTER → 2023-01-22 | Outpatient (REF) | payer MEDICARE ==
[2023-01-22 19:03] LABS: BASO # 0.1 10^3/uL (0.0-0.2); EOS # 0.7 10^3/uL (0.0-0.5); EOS % 6.4 % (0.0-3.0); HEMATOCRIT 50.2 % (42.0-52.0); HEMOGLOBIN 16.5 g/dl (13.5-17.5); LYMPH # 3.4 10^3/uL (1.5-5.0); LYMPH % 32.6 % (24.0-44.0); MEAN CORPUSCULAR HEMOGLOBIN 31.4 pg (27.0-33.0); MEAN CORPUSCULAR HGB CONC 32.9 g/dl (32.0-36.5); MEAN CORPUSCULAR VOLUME 95.6 fl (80.0-96.0); MONO # 0.6 10^3/uL (0.0-0.8); MONO % 5.4 % (2.0-8.0); NEUTROPHILS # 5.6 10^3/uL (1.5-8.5); NEUTROPHILS % 54.4 % (36.0-66.0); PLATELET COUNT, AUTOMATED 345 10^3/uL (150-450); RED BLOOD COUNT 5.25 10^6/uL (4.30-6.10); WHITE BLOOD COUNT 10.4 10^3/uL (4.0-10.0)
[2023-01-22 19:07] LABS: ALKALINE PHOSPHATASE 67 U/L (46-116); ALT/SGPT 45 U/L (7.0-40); AST/SGOT 27 U/L (<34); BILIRUBIN,TOTAL 0.4 MG/DL (0.3-1.2); BLOOD UREA NITROGEN 16 MG/DL (9-23); CALCIUM LEVEL 9.4 MG/DL (8.3-10.6); CARBON DIOXIDE LEVEL 28 MMOL/L (20-31); CHLORIDE LEVEL 107 MMOL/L (98-107); CHOLESTEROL LEVEL 200 MG/DL (<200); CHOLESTEROL RISK RATIO 4.59 (<5); CREATININE FOR GFR 1.17 MG/DL (0.70-1.30); GLOMERULAR FILTRATION RATE > 60.0 (>49); GLUCOSE, FASTING 96 MG/DL (74-106); HDL CHOLESTEROL 43.5 MG/DL (>40); LDL CHOLESTEROL 132.1 MG/DL (<100); NON-HDL-C 156.5 MG/DL; POTASSIUM SERUM 4.9 MMOL/L (3.5-5.1); SODIUM LEVEL 140 MMOL/L (136-145); TOTAL PROTEIN 6.7 G/DL (5.7-8.2); TRIGLYCERIDES LEVEL 122 MG/DL (<150)
[2023-01-22 19:40] LABS: ERYTHROCYTE SEDIMENTATION RATE 24 mm/hr (0-20)
== END ==
LOC: M SFHCCLAY 10:47
PROVIDERS: ATTEND Family Medicine
DX: I73.9 Peripheral vascular disease, unspecified (principal); L40.50 Arthropathic psoriasis, unspecified; I10 Essential (primary) hypertension

== ENCOUNTER → 2023-04-09 | Outpatient (CLI) | payer OTHER, MEDICARE | LOC: M RAD 14:43 | PROVIDERS: ATTEND Physical Medicine & Rehabilitation | DX: M54.2 Cervicalgia (principal) ==

== ENCOUNTER → 2023-04-30 | Outpatient (CLI) | payer OTHER, MEDICARE | LOC: M PLAIMG 07:26 | PROVIDERS: ATTEND Physical Medicine & Rehabilitation | DX: M48.02 Spinal stenosis, cervical region (principal) ==

== ENCOUNTER → 2023-06-03 | Outpatient (REF) | payer MEDICARE ==
[2023-06-03 13:13] LABS: CHOLESTEROL RISK RATIO 4.49 (<5); HDL CHOLESTEROL 36.5 MG/DL (>40); LDL CHOLESTEROL 107.5 MG/DL (<100); NON-HDL-C 127.5 MG/DL
== END ==
LOC: M SFHCCLAY 08:14
PROVIDERS: ATTEND Family Medicine
DX: E78.00 Pure hypercholesterolemia, unspecified (principal)

== ENCOUNTER → 2023-09-06 | Outpatient (REF) | payer MEDICARE ==
[2023-09-06 13:52] LABS: HEMATOCRIT 48.3 % (42.0-52.0); MEAN CORPUSCULAR HEMOGLOBIN 31.7 pg (27.0-33.0); MEAN CORPUSCULAR HGB CONC 33.1 g/dl (32.0-36.5); MEAN CORPUSCULAR VOLUME 95.8 fl (80.0-96.0); PLATELET COUNT, AUTOMATED 361 10^3/uL (150-450); RED BLOOD COUNT 5.04 10^6/uL (4.30-6.10); WHITE BLOOD COUNT 10.9 10^3/uL (4.0-10.0)
[2023-09-06 14:13] LABS: ALBUMIN 3.6 G/DL (3.2-5.2); ALKALINE PHOSPHATASE 60 U/L (46-116); ALT/SGPT 43 U/L (7.0-40); AST/SGOT 29 U/L (<34); BILIRUBIN,TOTAL 0.4 MG/DL (0.3-1.2); BLOOD UREA NITROGEN 23 MG/DL (9-23); CALCIUM LEVEL 9.7 MG/DL (8.3-10.6); CARBON DIOXIDE LEVEL 27 MMOL/L (20-31); CHLORIDE LEVEL 108 MMOL/L (98-107); CHOLESTEROL LEVEL 171 MG/DL (<200); CHOLESTEROL RISK RATIO 4.38 (<5); CREATININE FOR GFR 1.24 MG/DL (0.70-1.30); GLOMERULAR FILTRATION RATE > 60.0 (>49); GLUCOSE, FASTING 103 MG/DL (74-106); LDL CHOLESTEROL 112.4 MG/DL (<100); POTASSIUM SERUM 5.3 MMOL/L (3.5-5.1); SODIUM LEVEL 142 MMOL/L (136-145); TOTAL PROTEIN 6.4 G/DL (5.7-8.2); TRIGLYCERIDES LEVEL 98 MG/DL (<150)
== END ==
LOC: M SFHCCLAY 09:09
PROVIDERS: ATTEND Family Medicine
DX: I10 Essential (primary) hypertension (principal)

== ENCOUNTER → 2023-10-23 | Day surgery (SDC) | payer MEDICARE ==
[~2023-10-23] VITALS: Ht 172.7 cm; Wt 77.1 kg
[~2023-10-23] MED LIST changes: +LIDOCAINE 2% 100MG/5ML SDV (FOR ANES.) As Ordered ONE; +NS 1,000 ML IV ONE; +propofoL 200 MG/20 ML VIAL As Ordered ONE
== END | disposition home or self-care (01) ==
LOC: M OPP 07:29
PROVIDERS: ATTEND Surgery
DX: Z86.010 Personal history of colon polyps (principal); Z53.8 Procedure and treatment not carried out for other reasons

== ENCOUNTER 2023-12-18 07:25 | Day surgery (SDC) | payer MEDICARE ==
[~2023-12-18] VITALS: Ht 172.7 cm; Wt 77.6 kg
[~2023-12-18 07:25] MED LIST changes: +IBUP200C29 PO; -NS 1,000 ML IV ONE; +ROSU40TA4 PO
[2023-12-18] MEDS: NS 1,000 ML IV ONE (07:48)
[2023-12-18] MEDS ORDERED: ePHEDrine SULFATE 25 MG/5 ML(5MG/ML) SYRINGE As Ordered ONE (08:20)
[2023-12-18] MEDS ORDERED: GLUCAGON INJ 1MG VIAL As Ordered ONE (08:34)
[2023-12-18 08:44] VITALS: TEMP 96.8
[2023-12-18 09:20] VITALS: BP 154/86; O2SAT 99
== END 2023-12-18 11:20 | disposition home or self-care (01) ==
LOC: M OPP 07:25
PROVIDERS: ATTEND Internal Medicine Gastroenterology
DX: K59.00 Constipation, unspecified (principal); R10.32 Left lower quadrant pain; K64.0 First degree hemorrhoids; K57.30 Diverticulosis of large intestine without perforation or abscess without bleeding; Z90.49 Acquired absence of other specified parts of digestive tract; I10 Essential (primary) hypertension; E78.00 Pure hypercholesterolemia, unspecified; F17.290 Nicotine dependence, other tobacco product, uncomplicated; Z79.01 Long term (current) use of anticoagulants; Z79.899 Other long term (current) drug therapy; Z86.718 Personal history of other venous thrombosis and embolism
CPT/HCPCS: 45378; J1610

== ENCOUNTER → 2024-03-24 | Outpatient (CLI) | payer MEDICARE ==
[~2024-03-24] MED LIST changes: -LIDOCAINE 2% 100MG/5ML SDV (FOR ANES.) As Ordered ONE; -ROSU40TA4 PO; +ROSU40TA63 PO; +ROSU5TAB40 PO; -ROSU5TAB5 PO; -propofoL 200 MG/20 ML VIAL As Ordered ONE
== END ==
LOC: M RAD 15:53
PROVIDERS: ATTEND Family Medicine
DX: M47.816 Spondylosis without myelopathy or radiculopathy, lumbar region (principal); L40.50 Arthropathic psoriasis, unspecified

== ENCOUNTER → 2024-08-12 | Outpatient (REF) | payer MEDICARE ==
[~2024-08-12] MED LIST changes: -ROSU40TA63 PO; +ROSU40TA81 PO; -ROSU5TAB40 PO; +ROSU5TAB49 PO
[2024-08-12 12:56] LABS: BASO % 0.5 % (0.0-1.0); EOS # 0.4 10^3/uL (0.0-0.5); EOS % 5.9 % (0.0-3.0); HEMATOCRIT 43.1 % (42.0-52.0); HEMOGLOBIN 13.6 g/dl (13.5-17.5); LYMPH # 2.2 10^3/uL (1.5-5.0); LYMPH % 33.6 % (24.0-44.0); MEAN CORPUSCULAR HEMOGLOBIN 29.2 pg (27.0-33.0); MEAN CORPUSCULAR HGB CONC 31.6 g/dl (32.0-36.5); MEAN CORPUSCULAR VOLUME 92.5 fl (80.0-96.0); MONO # 0.6 10^3/uL (0.0-0.8); MONO % 8.6 % (2.0-8.0); NEUTROPHILS # 3.3 10^3/uL (1.5-8.5); NEUTROPHILS % 50.9 % (36.0-66.0); PLATELET COUNT, AUTOMATED 415 10^3/uL (150-450); RED BLOOD COUNT 4.66 10^6/uL (4.30-6.10); WHITE BLOOD COUNT 6.4 10^3/uL (4.0-10.0)
[2024-08-12 13:03] LABS: ERYTHROCYTE SEDIMENTATION RATE 73 mm/hr (0-20)
[2024-08-12 13:22] LABS: C REACTIVE PROTEIN QUANTITATIV < 0.40 MG/DL (<1.0)
[2024-08-12 13:26] LABS: ALBUMIN 3.5 G/DL (3.2-5.2); ALKALINE PHOSPHATASE 71 U/L (40-129); ALT/SGPT 34 U/L (7.0-40); AST/SGOT 29 U/L (<34); BILIRUBIN,TOTAL 0.3 MG/DL (0.3-1.2); BLOOD UREA NITROGEN 19 MG/DL (9-23); CALCIUM LEVEL 9.9 MG/DL (8.3-10.6); CARBON DIOXIDE LEVEL 26 MMOL/L (20-31); CHLORIDE LEVEL 105 MMOL/L (98-107); CREATININE FOR GFR 0.95 MG/DL (0.70-1.30); GLOMERULAR FILTRATION RATE > 60.0 (>49); GLUCOSE, FASTING 98 MG/DL (74-106); POTASSIUM SERUM 4.8 MMOL/L (3.5-5.1); SODIUM LEVEL 137 MMOL/L (136-145); TOTAL PROTEIN 7.3 G/DL (5.7-8.2)
== END ==
LOC: M LAB REF 12:11
PROVIDERS: ATTEND Internal Medicine Infectious Disease
DX: T22.351A Burn of third degree of right shoulder, initial encounter (principal); Y93.9 Activity, unspecified; Y92.9 Unspecified place or not applicable

== ENCOUNTER → 2024-10-07 | Outpatient (REF) | payer MEDICARE ==
[2024-10-07 17:11] LABS: HEMATOCRIT 47.2 % (42.0-52.0); HEMOGLOBIN 15.1 g/dl (13.5-17.5); MEAN CORPUSCULAR HEMOGLOBIN 28.1 pg (27.0-33.0); MEAN CORPUSCULAR VOLUME 87.9 fl (80.0-96.0); PLATELET COUNT, AUTOMATED 341 10^3/uL (150-450); RED BLOOD COUNT 5.37 10^6/uL (4.30-6.10)
[2024-10-07 17:35] LABS: ALBUMIN 3.6 G/DL (3.2-5.2); ALKALINE PHOSPHATASE 66 U/L (40-129); ALT/SGPT 58 U/L (7.0-40); AST/SGOT 43 U/L (<34); BILIRUBIN,TOTAL 0.3 MG/DL (0.3-1.2); BLOOD UREA NITROGEN 19 MG/DL (9-23); CALCIUM LEVEL 9.4 MG/DL (8.3-10.6); CARBON DIOXIDE LEVEL 30 MMOL/L (20-31); CHLORIDE LEVEL 108 MMOL/L (98-107); CHOLESTEROL LEVEL 196 MG/DL (<200); CHOLESTEROL RISK RATIO 4.82 (<5); CREATININE FOR GFR 0.92 MG/DL (0.70-1.30); GLOMERULAR FILTRATION RATE > 60.0 (>49); GLUCOSE, FASTING 97 MG/DL (74-106); HDL CHOLESTEROL 40.6 MG/DL (>40); NON-HDL-C 155.4 MG/DL; POTASSIUM SERUM 4.8 MMOL/L (3.5-5.1); SODIUM LEVEL 141 MMOL/L (136-145); TOTAL PROTEIN 6.8 G/DL (5.7-8.2); TRIGLYCERIDES LEVEL 97 MG/DL (<150)
== END ==
LOC: M SFHCCLAY 11:00
PROVIDERS: ATTEND Nurse Practitioner Family
DX: M47.26 Other spondylosis with radiculopathy, lumbar region (principal); M50.122 Cervical disc disorder at C5-C6 level with radiculopathy; E78.00 Pure hypercholesterolemia, unspecified; L40.50 Arthropathic psoriasis, unspecified

== ENCOUNTER → 2024-11-24 | Outpatient (CLI) | payer MEDICARE ==
[~2024-11-24] MED LIST changes: +CARI-555 PO; -CARI1TAB7 PO
== END ==
LOC: M RAD 09:28
PROVIDERS: ATTEND Nurse Practitioner Family
DX: R74.01 Elevation of levels of liver transaminase levels (principal)

== ENCOUNTER → 2024-12-14 | Outpatient (CLI) | payer OTHER, MEDICARE | LOC: M RAD 12:41 | PROVIDERS: ATTEND Psychiatry & Neurology Neurology | DX: I70.293 Other atherosclerosis of native arteries of extremities, bilateral legs (principal) ==

== ENCOUNTER 2025-03-24 13:03 | Observation (INO) | payer MEDICARE, OTHER ==
[~2025-03-24] VITALS: Ht 172.7 cm; Wt 66.8 kg
[~2025-03-24 13:03] MED LIST changes: +dexAMETHasone 4 MG/ML 1 ML VIAL IV SCH
[2025-03-24 15:22] LABS: BASO # 0.0 10^3/uL (0.0-0.2); BASO % 0.3 % (0.0-1.0); EOS # 0.2 10^3/uL (0.0-0.5); EOS % 1.3 % (0.0-3.0); LYMPH # 2.5 10^3/uL (1.5-5.0); LYMPH % 21.1 % (24.0-44.0); MONO # 0.8 10^3/uL (0.0-0.8); MONO % 6.6 % (2.0-8.0); NEUTROPHILS # 8.2 10^3/uL (1.5-8.5); NEUTROPHILS % 70.4 % (36.0-66.0); PLATELET COUNT, AUTOMATED 312 10^3/uL (150-450)
[2025-03-24 16:05] LABS: CALCIUM LEVEL 8.8 MG/DL (8.3-10.6); CARBON DIOXIDE LEVEL 28.0 MMOL/L (20-31); CHLORIDE LEVEL 106.0 MMOL/L (98-107); CREATININE FOR GFR 0.97 MG/DL (0.70-1.30); GLOMERULAR FILTRATION RATE 85.6 (>49); POTASSIUM SERUM 4.0 MMOL/L (3.5-5.1); SODIUM LEVEL 142.0 MMOL/L (136-145)
[2025-03-24] MEDS ORDERED: ISOVUE-370 76% 100 ML VIAL As Ordered ONE (16:24)
[2025-03-24] MEDS ORDERED: OXYMETAZOLINE 0.05% NASAL SPRAY As Ordered ONE (18:13)
[2025-03-24] MEDS ORDERED: LR 1,000 ML IV SCH ×2 (18:20→19:50)
[2025-03-24] MEDS ORDERED: LIDOCAINE W/EPINEPHrine 1% 20 ML VIAL As Ordered ONE (18:24)
[2025-03-24] MEDS: AMPICILLIN SOD/SULBACTAM SOD 3 GM in DEXTROSE 5% (D5W) MINI-BAG PLU 100 ML IV ONE (18:29)
[2025-03-24] MEDS ORDERED: LIDOCAINE 2% 100 MG/5 ML SDV (FOR ANES.) As Ordered ONE (18:43)
[2025-03-24] MEDS ORDERED: ROCURONIUM BROMIDE 50MG/5ML VIAL As Ordered ONE (18:43)
[2025-03-24] MEDS ORDERED: MIDAZOLAM INJ 2 MG/2 ML VIAL As Ordered ONE (18:44)
[2025-03-24] MEDS ORDERED: HOME MED LIST COMPLETE! XX SCH (18:55)
[2025-03-24] MEDS ORDERED: HYDROmorphone HCL 2 MG/ML 1 ML VIAL As Ordered ONE (19:17)
[2025-03-24] MEDS ORDERED: SUGAMMADEX SODIUM 500 MG/5 ML VIAL As Ordered ONE (19:19)
[2025-03-24] MEDS ORDERED: ONDANSETRON 4MG 2ML VIAL As Ordered ONE (19:19)
[2025-03-24] MEDS ORDERED: ACETAMINOPHEN 1000MG/100ML IV BAG As Ordered ONE (19:20)
[2025-03-24] MEDS ORDERED: MOM 30 ML SUSPENSION UDC PO PRN (19:40)
[2025-03-24] MEDS ORDERED: ACETAMINOPHEN 325 MG TAB PO PRN (19:40)
[2025-03-24] MEDS ORDERED: MAALOX 30 ML SUSP *UDC PO PRN (19:40)
[2025-03-24] MEDS ORDERED: ONDANSETRON 4MG 2ML VIAL IV PRN (19:50)
[2025-03-24] MEDS ORDERED: ONDANSETRON 4MG ORAL DISINTEGRATING TAB PO PRN (19:50)
[2025-03-24] MEDS ORDERED: PERCOCET 5MG/325MG TAB PO PRN (19:50)
[2025-03-24] MEDS ORDERED: HYDROMORPHONE HCL 0.5 MG/0.5 ML SYRINGE IV PRN (19:50)
[2025-03-24 21:00] VITALS: BP 145/72; TEMP 97.5; O2SAT 96
[2025-03-24] MEDS: DOCUSATE SODIUM 100 MG CAPSULE PO SCH (21:00)
[2025-03-24 21:30] VITALS: BP 149/77; TEMP 97.2; O2SAT 94
[2025-03-24] MEDS: PERCOCET 5MG/325MG TAB PO PRN (21:38)
[2025-03-24 22:00] VITALS: BP 120/70; TEMP 97.3; O2SAT 96
[2025-03-24 23:00] VITALS: BP 121/69; TEMP 97.5; O2SAT 97
[2025-03-25 00:14] VITALS: BP 120/72; TEMP 97; O2SAT 94
[2025-03-25] MEDS: dexAMETHasone 4 MG/ML 1 ML VIAL IV SCH (00:44)
[2025-03-25] MEDS: AMPICILLIN SOD/SULBACTAM SOD 3 GM in DEXTROSE 5% (D5W) MINI-BAG PLU 100 ML IV SCH (00:45)
[2025-03-25 01:00] VITALS: BP 105/60; TEMP 97.7; O2SAT 95
[2025-03-25 04:33] VITALS: BP 111/69; TEMP 97.5; O2SAT 93
[2025-03-25 07:43] LABS: PLATELET COUNT, AUTOMATED 356 10^3/uL (150-450)
[2025-03-25 08:29] LABS: ALT/SGPT 23.0 U/L (7.0-40); AST/SGOT 23.0 U/L (<34); CALCIUM LEVEL 10.0 MG/DL (8.3-10.6); CARBON DIOXIDE LEVEL 24.0 MMOL/L (20-31); CHLORIDE LEVEL 103.0 MMOL/L (98-107); CREATININE FOR GFR 0.97 MG/DL (0.70-1.30); GLOMERULAR FILTRATION RATE 85.6 (>49); MAGNESIUM LEVEL 1.9 MG/DL (1.8-2.4); POTASSIUM SERUM 4.4 MMOL/L (3.5-5.1); SODIUM LEVEL 140.0 MMOL/L (136-145)
[2025-03-25] MEDS: ROSUVASTATIN 10 MG TAB PO SCH (08:51)
[2025-03-25 08:52] VITALS: BP 135/90
[2025-03-25] MEDS: LOSARTAN 50 MG TABLET PO SCH (08:52)
[2025-03-25] MEDS ORDERED: AMOX875T2 PO (11:39)
[2025-03-25] MEDS ORDERED: ACET32TAB PO (11:39)
[2025-03-25] MEDS ORDERED: DEXA4TA PO (11:41)
[2025-03-25] MEDS ORDERED: ONDA-83 PO (11:43)
[2025-03-25 12:00] VITALS: BP 105/81; TEMP 97.9; O2SAT 95
== END 2025-03-25 13:30 | disposition home or self-care (01) ==
LOC: M ED 13:03 → M SDC 18:15 → M RR INP 18:16 → M MS5PR 21:01
PROVIDERS: ADMIT Family Medicine; ATTEND Family Medicine
DX: J36 Peritonsillar abscess (principal); I10 Essential (primary) hypertension; E78.5 Hyperlipidemia, unspecified; Z86.718 Personal history of other venous thrombosis and embolism; F41.9 Anxiety disorder, unspecified; F32.A Depression, unspecified; M47.816 Spondylosis without myelopathy or radiculopathy, lumbar region; M50.122 Cervical disc disorder at C5-C6 level with radiculopathy; L40.50 Arthropathic psoriasis, unspecified; I73.9 Peripheral vascular disease, unspecified; G60.3 Idiopathic progressive neuropathy; A69.20 Lyme disease, unspecified; Z89.211 Acquired absence of right upper limb below elbow; F17.200 Nicotine dependence, unspecified, uncomplicated; Z79.2 Long term (current) use of antibiotics; Z79.01 Long term (current) use of anticoagulants; Z79.899 Other long term (current) drug therapy; Z88.8 Allergy status to other drugs, medicaments and biological substances
CPT/HCPCS: 36415; 42700; 70491; 80048; 80053; 83605; 83735; 85025; 85027; 87880; 88305; 93005; 96365; 96366; 96375; 96376; 99284; G0378; G0463; J0131; J0295; J1100; J1171; J2250; J2405; J3010; Q9967

== ENCOUNTER → 2025-04-23 | Outpatient (CLI) | payer OTHER, MEDICARE ==
[~2025-04-23] MED LIST changes: +ACET32TAB PO; +AMOX875T2 PO; +DEXA4TA PO; +ONDA-83 PO; -dexAMETHasone 4 MG/ML 1 ML VIAL IV SCH
== END ==
LOC: M RAD 15:21
PROVIDERS: ATTEND Nurse Practitioner Family
DX: M48.02 Spinal stenosis, cervical region (principal); M47.812 Spondylosis without myelopathy or radiculopathy, cervical region; M25.78 Osteophyte, vertebrae; M24.28 Disorder of ligament, vertebrae; M50.20 Other cervical disc displacement, unspecified cervical region

== ENCOUNTER → 2025-06-25 | Outpatient (REF) | payer MEDICARE ==
[2025-06-25 18:27] LABS: ALT/SGPT 39.0 U/L (7.0-40); AST/SGOT 31.0 U/L (<34); CALCIUM LEVEL 9.4 MG/DL (8.3-10.6); CARBON DIOXIDE LEVEL 28.0 MMOL/L (20-31); CHLORIDE LEVEL 107.0 MMOL/L (98-107); CHOLESTEROL LEVEL 192.0 MG/DL (<200); CHOLESTEROL RISK RATIO 4.57 (<5); CREATININE FOR GFR 1.07 MG/DL (0.70-1.30); GLOMERULAR FILTRATION RATE 76.1 (>49); LDL CHOLESTEROL 131.2 MG/DL (<100); NON-HDL-C 150.0 MG/DL; POTASSIUM SERUM 4.4 MMOL/L (3.5-5.1); SODIUM LEVEL 141.0 MMOL/L (136-145); TRIGLYCERIDES LEVEL 94.0 MG/DL (<150)
[2025-06-25 19:03] LABS: ESTIMATED AVERAGE GLUCOSE 114.0 MG/DL (60-110)
== END ==
LOC: M SFHCCLAY 09:10
PROVIDERS: ATTEND Nurse Practitioner Family
DX: Z00.00 Encounter for general adult medical examination without abnormal findings (principal); M47.26 Other spondylosis with radiculopathy, lumbar region; S58.111A Complete traumatic amputation at level between elbow and wrist, right arm, initial encounter; M62.838 Other muscle spasm; E78.00 Pure hypercholesterolemia, unspecified; L40.50 Arthropathic psoriasis, unspecified; K76.0 Fatty (change of) liver, not elsewhere classified; R74.8 Abnormal levels of other serum enzymes; M50.122 Cervical disc disorder at C5-C6 level with radiculopathy; Y92.9 Unspecified place or not applicable; Y93.9 Activity, unspecified

== ENCOUNTER → 2025-07-06 | Outpatient (CLI) | payer OTHER, MEDICARE ==
[~2025-07-06] MED LIST changes: +ISOVUE-370 76% 100 ML VIAL As Ordered ONE
== END ==
LOC: M RAD 14:46
PROVIDERS: ATTEND Psychiatry & Neurology Neurology
DX: H53.9 Unspecified visual disturbance (principal)